=== PATIENT | female | born 1950 | race Caucasian/White ===

== ENCOUNTER 2017-01-06 11:23 | Outpatient (CLI) | payer MEDICARE ==
[2017-01-06 18:45] LABS: BASOPHILS % (AUTO) 0.6 %; EOSINOPHILS # (AUTO) 0.1 10^3/uL (0.0-0.7); EOSINOPHILS % (AUTO) 1.9 %; HCT - HEMATOCRIT 35.1 % (37.0-47.0); HGB - HEMOGLOBIN 11.2 g/dL (12.0-16.0); LYMPHOCYTES # (AUTO) 1.9 10^3/uL (1.5-3.5); LYMPHOCYTES % (AUTO) 37.3 %; MEAN CORPUSCULAR HEMOGLOBIN 23.4 pg (27.0-31.0); MEAN PLATELET VOLUME 7.5 fL (7.9-10.8); MONOCYTES # (AUTO) 0.4 10^3/uL (0.0-1.0); MONOCYTES % (AUTO) 7.3 %; NEUTROPHILS # (AUTO) 2.6 10^3/uL (1.5-6.6); NEUTROPHILS % (AUTO) 52.9 %; NUCLEATED RED BLOOD CELLS AUTO 0.1 /100WBC; RED BLOOD COUNT 4.81 10^6/uL (4.20-5.40); RED CELL DISTRIBUTION WIDTH 18.1 % (12.0-15.0)
[2017-01-06 19:21] LABS: ALBUMIN/GLOBULIN RATIO 1.3 (1.0-2.2); BILIRUBIN,TOTAL 0.5 mg/dL (0.2-1.0); BUN - BLOOD UREA NITROGEN 23 mg/dL (6-20); CALCIUM 9.1 mg/dL (8.5-10.3); CARBON DIOXIDE - CO2 26 mmol/L (21-32); CHLORIDE 105 mmol/L (101-111); CHOL/HDL RATIO 5.3 (<4.4); CHOLESTEROL 233 mg/dL; CREATININE 0.9 mg/dL (0.4-1.0); GFR - MDRD 63 (>89); GLUCOSE 91 mg/dL (70-100); HDL CHOLESTEROL 44 mg/dL; LDL/HDL RATIO 3.3 (<4.4); POTASSIUM 3.8 mmol/L (3.5-5.0); SODIUM 138 mmol/L (135-145); TOTAL PROTEIN 7.2 g/dL (6.7-8.2); TRIGLYCERIDES 219 mg/dL; VLDL CHOLESTEROL 44 mg/dL
== END 2017-01-06 11:24 | disposition home or self-care (01) ==
LOC: LAB.S 11:23
PROVIDERS: ATTEND Nurse Practitioner Family
DX: G35 Multiple sclerosis (principal); E78.5 Hyperlipidemia, unspecified
CPT/HCPCS: 36415; 80053; 80061; 84443; 85025

== ENCOUNTER 2017-03-24 15:35 | Outpatient (CLI) | payer MEDICARE ==
[2017-03-24 18:09] LABS: BASOPHILS % (AUTO) 0.8 %; EOSINOPHILS # (AUTO) 0.1 10^3/uL (0.0-0.7); HCT - HEMATOCRIT 35.9 % (37.0-47.0); HGB - HEMOGLOBIN 11.6 g/dL (12.0-16.0); LYMPHOCYTES % (AUTO) 40.2 %; MEAN CORPUSCULAR HEMOGLOBIN 23.8 pg (27.0-31.0); MEAN CORPUSCULAR HGB CONC 32.3 g/dL (32.0-36.0); MEAN CORPUSCULAR VOLUME 73.5 fL (81.0-99.0); MEAN PLATELET VOLUME 7.5 fL (7.9-10.8); MONOCYTES # (AUTO) 0.4 10^3/uL (0.0-1.0); NEUTROPHILS # (AUTO) 2.4 10^3/uL (1.5-6.6); RED BLOOD COUNT 4.89 10^6/uL (4.20-5.40); RED CELL DISTRIBUTION WIDTH 19.3 % (12.0-15.0); UNCORRECTED WHITE BLOOD COUNT 4.9 x10^3/uL; WHITE BLOOD COUNT 4.9 x10^3/uL (4.8-10.8)
[2017-03-24 18:49] LABS: IRON 28 ug/dL (28-170); TOTAL IRON BINDING CAPACITY 433 ug/dL (250-450); TRANSFERRIN 309 mg/dL (192-382)
== END 2017-03-24 15:36 | disposition home or self-care (01) ==
LOC: LAB.S 15:35
PROVIDERS: ATTEND Nurse Practitioner Family
DX: D64.9 Anemia, unspecified (principal)
CPT/HCPCS: 36415; 82607; 83540; 84466; 85025

== ENCOUNTER 2018-11-16 14:42 | Outpatient (CLI) | payer MEDICARE ==
[2018-11-16 17:11] LABS: BASOPHILS % (AUTO) 0.7 %; EOSINOPHILS # (AUTO) 0.1 10^3/uL (0.0-0.7); EOSINOPHILS % (AUTO) 1.4 %; HGB - HEMOGLOBIN 13.9 g/dL (12.0-16.0); LYMPHOCYTES # (AUTO) 2.1 10^3/uL (1.5-3.5); LYMPHOCYTES % (AUTO) 37.3 %; MEAN CORPUSCULAR HEMOGLOBIN 26.6 pg (27.0-31.0); MEAN CORPUSCULAR HGB CONC 32.3 g/dL (32.0-36.0); MEAN CORPUSCULAR VOLUME 82.3 fL (81.0-99.0); MEAN PLATELET VOLUME 7.6 fL (7.9-10.8); MONOCYTES # (AUTO) 0.4 10^3/uL (0.0-1.0); MONOCYTES % (AUTO) 6.4 %; NEUTROPHILS % (AUTO) 54.2 %; PLT - PLATELET COUNT 212 10^3/uL (130-450); RED BLOOD COUNT 5.21 10^6/uL (4.20-5.40); RED CELL DISTRIBUTION WIDTH 15.9 % (12.0-15.0); WHITE BLOOD COUNT 5.5 x10^3/uL (4.8-10.8)
[2018-11-16 17:50] LABS: CALCIUM 9.7 mg/dL (8.5-10.3); CREATININE 0.9 mg/dL (0.4-1.0)
== END 2018-11-16 14:43 | disposition home or self-care (01) ==
LOC: LAB.F 14:42
PROVIDERS: ATTEND Physician Assistant Medical
DX: D64.9 Anemia, unspecified (principal); Z79.899 Other long term (current) drug therapy
CPT/HCPCS: 36415; 80048; 82728; 83540; 84466; 85025

== ENCOUNTER 2020-01-14 10:57 | Outpatient (CLI) | payer MEDICARE ==
[2020-01-14 15:13] LABS: BASOPHILS # (AUTO) 0.1 10^3/uL (0.0-0.1); BASOPHILS % (AUTO) 1.3 %; EOSINOPHILS # (AUTO) 0.1 10^3/uL (0.0-0.7); EOSINOPHILS % (AUTO) 1.8 %; HGB - HEMOGLOBIN 13.7 g/dL (12.0-16.0); LYMPHOCYTES # (AUTO) 1.2 10^3/uL (1.5-3.5); LYMPHOCYTES % (AUTO) 32.1 %; MEAN CORPUSCULAR HEMOGLOBIN 27.2 pg (27.0-31.0); MEAN CORPUSCULAR HGB CONC 31.3 g/dL (32.0-36.0); MEAN CORPUSCULAR VOLUME 87.1 fL (81.0-99.0); MEAN PLATELET VOLUME 9.7 fL (7.9-10.8); MONOCYTES # (AUTO) 0.3 10^3/uL (0.0-1.0); NEUTROPHILS # (AUTO) 2.2 10^3/uL (1.5-6.6); NEUTROPHILS % (AUTO) 56.5 %; PLT - PLATELET COUNT 216 10^3/uL (130-450); RED BLOOD COUNT 5.03 10^6/uL (4.20-5.40); RED CELL DISTRIBUTION WIDTH 13.7 % (12.0-15.0); WHITE BLOOD COUNT 3.9 x10^3/uL (4.8-10.8)
[2020-01-14 16:18] LABS: ALBUMIN 4.2 g/dL (3.2-5.5); ALBUMIN/GLOBULIN RATIO 1.4 (1.0-2.2); ALKALINE PHOSPHATASE 58 IU/L (42-121); ALT ALANINE AMINOTRANSFERASE 16 IU/L (10-60); AST ASPARTATE AMINOTRANSFERASE 20 IU/L (10-42); BILIRUBIN,TOTAL 0.8 mg/dL (0.2-1.0); BUN - BLOOD UREA NITROGEN 21 mg/dL (6-20); CALCIUM 9.6 mg/dL (8.5-10.3); CARBON DIOXIDE - CO2 29 mmol/L (21-32); CHLORIDE 102 mmol/L (101-111); CHOL/HDL RATIO 4.3 (<4.4); CHOLESTEROL 244 mg/dL; CREATININE 0.9 mg/dL (0.4-1.0); GLUCOSE 104 mg/dL (70-100); HDL CHOLESTEROL 57 mg/dL; LDL CHOLESTEROL,CALCULATED 167 mg/dL; LDL/HDL RATIO 2.9 (<4.4); SODIUM 137 mmol/L (135-145); TOTAL PROTEIN 7.2 g/dL (6.7-8.2); VLDL CHOLESTEROL 20 mg/dL
== END 2020-01-14 10:58 | disposition home or self-care (01) ==
LOC: LAB.S 10:57
PROVIDERS: ATTEND Family Medicine
DX: R53.83 Other fatigue (principal); E78.5 Hyperlipidemia, unspecified; D64.9 Anemia, unspecified
CPT/HCPCS: 36415; 80053; 80061; 82607; 83721; 84443; 85025

== ENCOUNTER 2021-04-19 20:10 | Outpatient (CLI) | payer MEDICARE | END 2021-04-19 20:11 | disposition critical access hospital (66) | LOC: EMS 20:10 | DX: M54.6 Pain in thoracic spine (principal) | CPT/HCPCS: A0425; A0429 ==

== ENCOUNTER 2021-04-19 20:46 | Emergency (ER) | payer MEDICARE ==
[2021-04-19 20:54] VITALS: BP 152/72
[2021-04-19] MEDS ORDERED: IBUPROFEN 600 MG TABLET PO STA (22:04)
--- NOTE | 2021-04-19 22:16 | ED Physician Documentation ---
History of Present Illness - Stated complaint Stated Complaint: GLF, BACK PAIN - Chief complaint Chief Complaint: Back Pain - History obtained from History obtained from: Patient - Additonal information Additional information: Patient comes emergency department chief complaints of seeing blood on the pillow after taking a fall off of a ladder. Patient cannot really tell me exactly when she fell but was not today. She is also not sure how high up she was on the ladder. She states she was trying to hang a reason for her friend on the outside of the door. Patient states that she stumbled to the ground and did not distinctly remember hitting her head. Patient states that she has a history of multiple sclerosis and Sometimes has back pain, but states this is not bothering her right at the moment. Review of Systems Ten Systems: 10 systems reviewed and negative Constitutional: reports: Reviewed and negative Eyes: reports: Reviewed and negative Ears: reports: Reviewed and negative Nose: reports: Reviewed and negative Throat: reports: Reviewed and negative Cardiac: reports: Reviewed and negative Respiratory: reports: Reviewed and negative GI: reports: Reviewed and negative : reports: Reviewed and negative Skin: reports: Reviewed and negative Musculoskeletal: reports: Back pain Neurologic: reports: Reviewed and negative Psychiatric: reports: Reviewed and negative Endocrine: reports: Reviewed and negative Immunocompromised: reports: Reviewed and negative PD PAST MEDICAL HISTORY - Present Medications Home Medications: Ambulatory Orders Medication Instructions Recorded Confirmed Citalopram Hydrobromide [Celexa] 10 mg PO DAILY 03/17/14 03/17/14 - Allergies Allergies/Adverse Reactions: Allergies Allergy/AdvReac Type Severity Reaction Status Date / Time Penicillins Allergy Unknown Verified 04/19/21 20:51 Sulfa (Sulfonamide Allergy Unknown Verified 04/19/21 20:51 Antibiotics) - Social History Does the pt smoke?: No Smoking Status: Never smoker PD ED PE NORMAL - Vitals Vital signs reviewed: Yes - General General: Alert and oriented X 3, No acute distress, Well developed/nourished, Other (Disheveled female in no apparent distress) - HEENT HEENT: PERRL, EOMI, Moist mucous membranes, Other (Small left occipital scalp abrasion which appears subacute. No active bleeding. No laceration.) - Neck Neck: Supple, no meningeal sign - Cardiac Cardiac: RRR, No murmur, Strong equal pulses - Respiratory Respiratory: No respiratory distress, Clear bilaterally - Abdomen Abdomen: Soft, Non tender, Non distended - Back Back: No spinal TTP - Derm Derm: Normal color, Warm and dry, No rash - Extremities Extremities: No deformity, No tenderness to palpate, No edema - Neuro Neuro: Alert and oriented X 3, Other (Grossly intact) - Psych Psych: Normal mood, Normal affect Results - Vitals Vitals: Vital Signs - 24 hr 04/19/21 20:52 Temperature 35.8 C L Heart Rate 81 Respiratory 18 Rate Blood Pressure 152/72 H O2 Saturation 98 Oxygen O2 Source Room air PD MEDICAL DECISION MAKING - ED course Complexity details: reviewed results, re-evaluated patient, considered differential, d/w patient ED course: The patient had minimal back complaints at this point, and the pain that she did have was at baseline. She had a small abrasion on her scalp which was most likely the source of the Bloody residue she saw on her pillow. I have given the patient a dose of ibuprofen for her back discomfort here in the emergency department. We have discussed home management and the usual indications for return. Departure - Departure Disposition: 01 Home, Self Care Clinical Impression: Abrasion Back pain Qualifiers: Back pain location: low back pain Chronicity: chronic Back pain laterality: bilateral Sciatica presence: without sciatica Qualified Code(s): M54.50 - Low back pain, unspecified Condition: Stable Instructions: ED Abrasion, ED Neck Back Pain General Discharge Date/Time: 04/19/21 22:25
== END 2021-04-19 22:25 | disposition home or self-care (01) ==
LOC: EDUNIT# → ED 20:46
DX: S00.01XA Abrasion of scalp, initial encounter (principal); W11.XXXA Fall on and from ladder, initial encounter; Y93.89 Activity, other specified; Y92.008 Other place in unspecified non-institutional (private) residence as the place of occurrence of the external cause
CPT/HCPCS: 99282; 99283; A9270

== ENCOUNTER 2021-04-24 15:34 | Outpatient (CLI) | payer MEDICARE, MEDICAID | END 2021-04-24 15:35 | disposition critical access hospital (66) | LOC: EMS 15:34 | DX: Z04.3 Encounter for examination and observation following other accident (principal); R41.0 Disorientation, unspecified; R10.32 Left lower quadrant pain; M25.572 Pain in left ankle and joints of left foot | CPT/HCPCS: A0425; A0427 ==

== ENCOUNTER 2021-04-24 16:13 | Inpatient (IN) | payer MEDICARE, MEDICAID ==
[2021-04-24] MEDS ORDERED: SODIUM CHLORIDE 0.9% 1,000 ML IV STA ×2 (16:24→17:18)
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
[2021-04-24 16:45] LABS: BASOPHILS % (AUTO) 0.2 %; EOSINOPHILS % (AUTO) 0.1 %; HCT - HEMATOCRIT 38.1 % (37.0-47.0); HGB - HEMOGLOBIN 12.8 g/dL (12.0-16.0); LYMPHOCYTES # (AUTO) 0.7 10^3/uL (1.5-3.5); LYMPHOCYTES % (AUTO) 8.3 %; MEAN CORPUSCULAR HEMOGLOBIN 28.2 pg (27.0-31.0); MEAN CORPUSCULAR HGB CONC 33.6 g/dL (32.0-36.0); MEAN CORPUSCULAR VOLUME 83.9 fL (81.0-99.0); MEAN PLATELET VOLUME 9.1 fL (7.9-10.8); MONOCYTES # (AUTO) 0.8 10^3/uL (0.0-1.0); MONOCYTES % (AUTO) 8.8 %; NEUTROPHILS # (AUTO) 7.4 10^3/uL (1.5-6.6); NEUTROPHILS % (AUTO) 82.5 %; PLT - PLATELET COUNT 246 10^3/uL (130-450); RED BLOOD COUNT 4.54 10^6/uL (4.20-5.40); RED CELL DISTRIBUTION WIDTH 13.2 % (12.0-15.0)
--- NOTE | 2021-04-24 16:49 | XRAY Report ---
PROCEDURE: Chest 1 View X-Ray INDICATIONS: ams TECHNIQUE: One view of the chest was acquired. COMPARISON: None. FINDINGS: Surgical changes and devices: None. Lungs and pleura: No pleural effusions or pneumothorax. Lungs are clear. Suspected moderate size h iatal hernia. Mediastinum: Mediastinal contours appear normal. Heart size is normal. Bones and chest wall: No suspicious bony lesions. Overlying soft tissues appear unremarkable. IMPRESSION: Chest without acute cardiopulmonary abnormalities. No focal airspace disease. Reviewed by: Berhane Abraham MD on 04/24/2021 4:47 PM PST Approved by: Berhane Abraham MD on 04/24/2021 4:47 PM PST Station ID: [id number]
[2021-04-24 16:54] LABS: VBG BASE EXCESS 1.8 mmol/L (-2 - +2); VBG HCO3 27.1 mmol/L (23-28); VBG OXYGEN SATURATION 56.8 % (60-80); VBG PCO2 45.1 mmHg (41-51); VBG PH 7.397 (7.31-7.41); VBG PO2 29.3 mmHg (25-47); VBG TOTAL CO2 28.5 mmol/L (24-29)
--- NOTE | 2021-04-24 16:56 | CT Report ---
PROCEDURE: HEAD WO INDICATIONS: ams TECHNIQUE: Noncontrast 4.5 mm thick angled axial sections acquired from the foramen magnum to the vertex. For r adiation dose reduction, the following was used: automated exposure control, adjustment of mA and/or kV according to patient size. COMPARISON: 03/17/2014 FINDINGS: Image quality: Excellent. CSF spaces: Basal cisterns are patent. No extra-axial fluid collections. Mild diffuse cerebral vol ume loss. Moderate degree of patchy low density within the periventricular and subcortical white dariusz er. Ventricles are normal in size and shape. Brain: No midline shift. No intracranial masses or hemorrhage. Quiñonez-white matter interface is norm al. Skull and face: Calvarium and visualized facial bones are intact, without suspicious lesions. Sinuses: Visualized sinuses and mastoids are clear. IMPRESSION: Volume loss and small vessel ischemic disease. No acute intracranial abnormality. Reviewed by: Casie Negron MD on 04/24/2021 4:55 PM PST Approved by: Casie Negron MD on 04/24/2021 4:55 PM PST Station ID: [id number]
[2021-04-24 16:59] LABS: INR 1.3 (0.8-1.2); PT - PROTHROMBIN TIME 14.2 secs (9.9-12.6)
[2021-04-24 17:08] LABS: ACETAMINOPHEN < 10 ug/mL (10-30); ALBUMIN 4.2 g/dL (3.2-5.5); ALBUMIN/GLOBULIN RATIO 1.4 (1.0-2.2); ALKALINE PHOSPHATASE 54 IU/L (42-121); ALT ALANINE AMINOTRANSFERASE 68 IU/L (10-60); AST ASPARTATE AMINOTRANSFERASE 119 IU/L (10-42); BILIRUBIN,TOTAL 1.1 mg/dL (0.2-1.0); BUN - BLOOD UREA NITROGEN 48 mg/dL (6-20); CALCIUM 9.5 mg/dL (8.5-10.3); CARBON DIOXIDE - CO2 28 mmol/L (21-32); CHLORIDE 98 mmol/L (101-111); CREATININE 0.7 mg/dL (0.4-1.0); ETOH - ETHANOL < 5.0 mg/dL; GFR - MDRD 83 (>89); GLUCOSE 121 mg/dL (70-100); PHOSPHORUS 2.4 mg/dL (2.5-4.6); POTASSIUM 2.8 mmol/L (3.5-5.0); SALICYLATE < 6.0 mg/dL; SODIUM 137 mmol/L (135-145); TOTAL PROTEIN 7.1 g/dL (6.7-8.2)
[2021-04-24 17:09] LABS: MUDS CUTOFF CONCENTRATIONS CUTOFF CONC BELOW:
[2021-04-24 17:10] LABS: CK- CREATINE KINASE 3057 IU/L (22-269)
[2021-04-24 17:11] LABS: BILIRUBIN,URINE NEGATIVE (NEGATIVE); GLUCOSE, URINE (UA) NEGATIVE (NEGATIVE); KETONES,URINE (UA) 15 mg/dL (NEGATIVE); LEUKOCYTE ESTERASE, URINE NEGATIVE (NEGATIVE); NITRITE,URINE POSITIVE (NEGATIVE); OCCULT BLOOD,URINE MODERATE (NEGATIVE); PROTEIN,URINE 30 mg/dL (NEGATIVE); UROBILINOGEN,URINE 0.2 (NORMAL) E.U./dL (NORMAL)
[2021-04-24 17:12] LABS: CLARITY,URINE HAZY (CLEAR)
[2021-04-24] MEDS ORDERED: POTASSIUM CHLORIDE 20 MEQ TABLET PO STA (17:17)
[2021-04-24] MEDS ORDERED: cefTRIAXone 1 GM in SODIUM CHLORIDE 0.9% MINIBAG 100 ML IV STA (17:17)
[2021-04-24 17:23] LABS: BACTERIA,URINE Many /HPF (None Seen); RBC,URINE 0-5 /HPF (0-5); SQUAMOUS EPITHELIAL CELL,UR NONE SEEN (<= Few)
[2021-04-24 17:24] LABS: AMPHETAMINE SCREEN,URINE NEGATIVE (NEGATIVE); BARBITURATE SCREEN,UR NEGATIVE (NEGATIVE); BENZODIAZEPINES SCREEN, URINE NEGATIVE (NEGATIVE); COCAINE SCREEN URINE NEGATIVE (NEGATIVE); METHADONE SCREEN, URINE NEGATIVE (NEGATIVE); METHAMPHETAMINES SCREEN, URINE NEGATIVE (NEGATIVE); OPIATE SCREEN, URINE NEGATIVE (NEGATIVE); OXYCODONE SCREEN, URINE NEGATIVE (NEGATIVE); PROPOXYPHENE SCREEN, URINE NEGATIVE (NEGATIVE); THC CANNABINOID SCREEN, URINE NEGATIVE (NEGATIVE); TRICYCLIC ANTIDEPRESSANT,URINE NEGATIVE (NEGATIVE)
[2021-04-24] MEDS ORDERED: ONDANSETRON 4 MG/2 ML VIAL IVP PRN (17:29)
[2021-04-24] MEDS ORDERED: SODIUM CHLORIDE FLUSH 0.9% 10 ML SYRINGE IVP PRN (17:29)
--- NOTE | 2021-04-24 17:47 | HISTORY & PHYSICAL EXAMINATION ---
Chief Complaint - Chief Complaint Chief Complaint: pt is confused History of Present Illness - Admitted From Admitted From:: medical floor - History Obtained From Records Reviewed: [facility], ER notes History obtained from: [facility], ER notes Exam Limitations: pt's confused - History of Present Illness HPI Comment/Other: This is a 71-year-old woman with A medical history Significant of multiple sclerosis and multiple doreen in the past who present ER for evaluation of her fall and altered mental status. pt was seen for a fall from ladder at here 5 days ago. Pt is alert and confused. She attempted to open her eyes and follow the command, but she did not answer any questions. pt was confused at ER per ER's report as well. Pt also was found on the ground by APS today. Her last seen at normal was 2 days ago. Pt is living alone. It was unclear how and why she was on the ground. CT of head and CXR reveals unremarkable for acute finding. Routine laboratory tests show patient had Potassium 2.8, BUN 48, AST 119, ALT 68, Alcohol less 5, CK 3057. Urinalysis show many bacteria, positive nitrate and indication of dehydration. Given above medical conditions, medical team was consulted for admission. At this moment, patient is confused, we will have full code for patient and will adjust as patient can request differently History - Past Medical History Neuro: reports: Multiple sclerosis - Family & Social History Family History Comment/Other: Patient is confused, she cannot provide family medical history At this moment Living Situation: Alone Meds/Allgy - Home Medications Home Medications: Ambulatory Orders Medication Instructions Recorded Confirmed Citalopram Hydrobromide [Celexa] 10 mg PO DAILY 03/17/14 03/17/14 - Allergies Allergies/Adverse Reactions: Allergies Allergy/AdvReac Type Severity Reaction Status Date / Time Penicillins Allergy Unknown Verified 04/24/21 16:30 Sulfa (Sulfonamide Allergy Unknown Verified 04/24/21 16:30 Antibiotics) Review of Systems - All Other Systems All Other Systems: reports: Other (Patient is confused, she cannot provide ROS at this moment.) Exam - Vital Signs Vital Signs: Vital Signs x48h Temp Pulse Resp BP Pulse Ox 04/24/21 16:30 36.4 C L 112 H 18 148/104 H 97 - Physical Exam General Appearance: positive: No acute distress, Alert Eyes Bilateral: positive: Normal inspection, No lid inflammation ENT: positive: ENT inspection nml. negative: Purulent nasal drainage Neck: positive: Nml inspection, Trachea midline. negative: Tracheal deviation Respiratory: positive: Chest non-tender, No respiratory distress. negative: Wheezes, Rales Cardiovascular: positive: Regular rate & rhythm. negative: Tachycardia, Bradycardia, Systolic murmur Peripheral Pulses: positive: 2+ Abdomen: positive: Non-tender, Nml bowel sounds, No distention Back: positive: Nml inspection Skin: positive: Color nml, Warm, Dry Extremities: positive: Non-tender, No pedal edema Neurologic/Psychiatric: negative: Sensory loss, Facial droop, Slurred/abnml speech Conclusion/Plan - Problem List (1) Altered mental status Conclusion/Plan: pt is confused at ER. ER provider Spoke with Ms Lam whose contact was on chart, and reported her mental status has some baseline confusion, but today it is not her normal. CT of head reveal no acute process. pt has UTI infection, and dehydration significantly as well, it is likely the cause for her acute confusion, delirium. neuro check Q4H, treat underline of UTI with antibiotics and IVF, Continue laboratory and vital signs monitor (2) UTI (urinary tract infection) Conclusion/Plan: Urinalysis Show many bacteria in urine and positive nitrate, ketones with protein, elevated gravity in urine. We will treat her with antibiotics Rocephin, Intravenous IV fluids, Follow-up with urine culture and blood culture (3) Rhabdomyolysis Conclusion/Plan: Patient had unwitnessed fall at ground, unknown how long time she has been the ground, but it seem she had no injury. CK is over 3000, and increased BUN 48, but with normal arrange creatinine. ER already started with IVF, we will continue IVF, continue lab monitor and check CK daily as well. (4) Dehydration Conclusion/Plan: pt is confused and live alone, elevated BUN and urine gravity, indicated pt had significant dehydration. IVF, lab monitor and vital monitor. consult with social work specialist for disposition planning. It is likely pt need nurse facility to help her, pt can not take care of her self. (5) Hypokalemia Conclusion/Plan: potassium is 2.8, replaced with potassium, lab monitor, add tele monitor as well. (6) Fall Conclusion/Plan: Patient has a history of multiple falls, she live alone. social work consult for pt, PT/OT evaluation and treatment for patient, nurse for fall precaution. (7) Multiple sclerosis Conclusion/Plan: Patient has a history of multiple sclerosis, chronic. pt has no acute res piratory distress. she had 97% O2 sat on room air. pt may followup with neurologist as out-pt - Lab Results Fish Bones: 04/25/21 06:45 04/25/21 06:45 Core Measures - Anticipated LOS I expect patient to be DC'd or transferred within 96 hours.: Yes - DVT/VTE - Prophylaxis VTE/DVT Device ordered at admit?: Yes VTE/DVT Prophylaxis med ordered at admit?: Yes - Stroke - Rehab Assessment Rehab services assessment to be ordered?: Yes - AMI - Statin at Admit Aspirin Prescribed on Admit: Yes
[2021-04-24 17:49] LABS: B. PARAPERTUSSIS- RESP PCR PAN NOT DETECTED; B. PERTUSSIS- RESP PCR PANEL NOT DETECTED; C. PNEUMONIAE- RESP PCR PANEL NOT DETECTED; CORONAVIRUS 229E-RESP PCR NOT DETECTED; CORONAVIRUS HKU1-RESP PCR NOT DETECTED; CORONAVIRUS NL63-RESP PCR NOT DETECTED; CORONAVIRUS OC43-RESP PCR NOT DETECTED; HUMAN METAPNEUMOVIRUS NOT DETECTED; INFLUENZA A- RESP PCR PANEL NOT DETECTED; INFLUENZA B - RESP PCR PANEL NOT DETECTED; M. PNEUMONIAE- RESP PCR PANEL NOT DETECTED; PARAINFLUENZA VIRUS 1 NOT DETECTED; PARAINFLUENZA VIRUS 2 NOT DETECTED; PARAINFLUENZA VIRUS 3 NOT DETECTED; PARAINFLUENZA VIRUS 4 NOT DETECTED; RHINOVIRUS/ENTEROVIRUS NOT DETECTED; RSV- RESP PCR PANEL NOT DETECTED; SARS-CoV-2 -RESP PCR PANEL NOT DETECTED
[2021-04-24] MEDS ORDERED: POTASSIUM CHLORIDE 20 MEQ TABLET PO ONE (19:00)
[2021-04-24] MEDS: NEUTRA-PHOS 250 MG TABLET PO SCH (19:57)
[2021-04-24] MEDS: SODIUM CHLORIDE 0.9% 1,000 ML IV SCH ×2 (20:01→23:52)
[2021-04-25] MEDS: SODIUM CHLORIDE FLUSH 0.9% 10 ML SYRINGE IVP SCH ×4 (03:02→23:25)
[2021-04-25] MEDS: SODIUM CHLORIDE 0.9% 1,000 ML IV SCH ×3 (06:43→19:29)
[2021-04-25 06:53] LABS: BASOPHILS % (AUTO) 0.7 %; EOSINOPHILS % (AUTO) 0.4 %; HCT - HEMATOCRIT 34.6 % (37.0-47.0); HGB - HEMOGLOBIN 11.3 g/dL (12.0-16.0); LYMPHOCYTES # (AUTO) 1.4 10^3/uL (1.5-3.5); LYMPHOCYTES % (AUTO) 24.9 %; MEAN CORPUSCULAR HGB CONC 32.7 g/dL (32.0-36.0); MEAN CORPUSCULAR VOLUME 85.6 fL (81.0-99.0); MONOCYTES # (AUTO) 0.6 10^3/uL (0.0-1.0); MONOCYTES % (AUTO) 10.5 %; NEUTROPHILS # (AUTO) 3.6 10^3/uL (1.5-6.6); NEUTROPHILS % (AUTO) 63.3 %; PLT - PLATELET COUNT 199 10^3/uL (130-450); RED BLOOD COUNT 4.04 10^6/uL (4.20-5.40); RED CELL DISTRIBUTION WIDTH 13.6 % (12.0-15.0); WHITE BLOOD COUNT 5.7 x10^3/uL (4.8-10.8)
[2021-04-25 07:20] LABS: ALBUMIN 3.2 g/dL (3.2-5.5); ALBUMIN/GLOBULIN RATIO 1.3 (1.0-2.2); BILIRUBIN,TOTAL 1.2 mg/dL (0.2-1.0); CALCIUM 8.5 mg/dL (8.5-10.3); CREATININE 0.5 mg/dL (0.4-1.0); PHOSPHORUS 1.6 mg/dL (2.5-4.6); POTASSIUM 3.3 mmol/L (3.5-5.0); TOTAL PROTEIN 5.7 g/dL (6.7-8.2)
[2021-04-25] MEDS ORDERED: POTASSIUM CHLORIDE 20 MEQ TABLET PO ONE (07:43)
[2021-04-25] MEDS: NEUTRA-PHOS 250 MG TABLET PO SCH ×3 (08:01→16:51)
[2021-04-25] MEDS: cefTRIAXone 1 GM in SODIUM CHLORIDE 0.9% MINIBAG 100 ML IV SCH (08:11)
[2021-04-25] MEDS: ENOXAPARIN 40 MG/0.4 ML SYRINGE SUBQ SCH (08:12)
[2021-04-25] MEDS ORDERED: POTASSIUM PHOSPHATE 15 MMOL in SODIUM CHLORIDE 0.9% 250 ML IV ONE (08:30)
--- NOTE | 2021-04-25 09:17 | PHARMACY PROGRESS NOTE ---
- Best Possible Medication History Admit Date and Time: 04/24/21 1729 Processed by: Pharmacy Secondary Source(s): Physician records As the person ultimately responsible for medication therapy, providers are able to order a medication from an existing home medication list in [facility] via the "Reconcile Routine" prior to Confirmation of that medication by software support specialist. Such practice is discouraged except when the physician, in their clinical judgment, deems that a medical need exists for a medication without regard to previous use.
[2021-04-25] MEDS: polyethylene glycoL 3350 17 GM PACKET PO SCH (12:07)
[2021-04-25] MEDS ORDERED: ZINC OXIDE 20% OINT 30 GM TUBE TOP PRN (16:53)
--- NOTE | 2021-04-25 18:27 | PROVIDER PROGRESS NOTE ---
Assessment/Plan - Problem List (1) Altered mental status Assessment/Plan: 04/25 improved. continue treated underline dehydration and infection pt is confused at ER. ER provider Spoke with Ms Lam whose contact was on chart, and reported her mental status has some baseline confusion, but today it is not her normal. CT of head reveal no acute process. pt has UTI infection, and dehydration significantly as well, it is likely the cause for her acute confusion, delirium. neuro check Q4H, treat underline of UTI with antibiotics and IVF, Continue laboratory and vital signs monitor (2) UTI (urinary tract infection) Conclusion/Plan: Urinalysis Show many bacteria in urine and positive nitrate, ketones with protein, elevated gravity in urine. We will treat her with antibiotics Rocephin, Intravenous IV fluids, Follow-up with urine culture and blood culture (3) Rhabdomyolysis Conclusion/Plan: 04/25 improved. CK is down to 1700 from over 3000, continue IVF and lab monitor Patient had unwitnessed fall at ground, unknown how long time she has been the ground, but it seem she had no injury. CK is over 3000, and increased BUN 48, but with normal arrange creatinine. ER already started with IVF, we will continue IVF, continue lab monitor and check CK daily as well. (4) Dehydration Conclusion/Plan: 04/25 improved. BUN is down to 31 from 48, continue IVF, and lab and vital monitor pt is confused and live alone, elevated BUN and urine gravity, indicated pt had significant dehydration. IVF, lab monitor and vital monitor. consult with licensed master social worker for disposition planning. It is likely pt need nurse facility to help her, pt can not take care of her self. (5) Hypokalemia Conclusion/Plan: 04/25 K is 3.3, continue replaced, lab monitor potassium is 2.8, replaced with potassium, lab monitor, add tele monitor as well. (6) Fall Conclusion/Plan: 04/25 PT/OT evaluation and treatment for pt, recommend to SNF, consult with licensed master social worker for d/c planning Patient has a history of multiple falls, she live alone. social work consult for pt, PT/OT evaluation and treatment for patient, nurse for fall precaution. (7) Multiple sclerosis Conclusion/Plan: Patient has a history of multiple sclerosis, chronic. pt has no acute respiratory distress. she had 97% O2 sat on room air. pt may followup with neurologist as out-pt - Current Meds Current Meds: Current Medications Generic Name Dose Route Start Last Admin Trade Name Freq PRN Reason Stop Dose Admin Enoxaparin Sodium 40 mg 04/25/21 09:00 04/25/21 08:12 Enoxaparin 40 Mg/0.4 Ml Syringe SUBQ 40 mg DAILY DONNA Administration Sodium Chloride 1,000 mls @ 150 mls/hr 04/24/21 18:00 04/25/21 14:39 Normal Saline 0.9% IV 150 mls/hr .Q6H40M DONNA Administration Ceftriaxone Sodium 1 gm/ 100 mls @ 200 mls/hr 04/25/21 09:00 04/25/21 09:30 Sodium Chloride IV Infused DAILY DONNA Infusion Polyethylene Glycol 17 gm 04/25/21 10:00 04/25/21 12:07 Polyethylene Glycol 3350 17 Gm Packet PO 17 gm DAILY DONNA Administration Sodium Chloride 10 ml 04/25/21 01:00 04/25/21 16:50 Sodium Chloride Flush 0.9% 10 Ml Syringe IVP Not Given 0100,0900,1700 DONNA Sodium Phosphate 250 mg 04/24/21 19:00 04/25/21 16:51 Neutra-Phos 250 Mg Tablet PO 250 mg TIDWM DONNA Administration - Lab Result Fish Bone Diagrams: 04/25/21 06:45 04/25/21 06:45 - Additional Planning My Orders: My Active Orders 04/24/21 17:29 Activity Orders [RC] Q2HR IO [RC] IOSHIFT Initiate Bowel Care Protocol [RC] .protocol Initiate Flu Vaccine Screening [RC] ONCE Initiate Line Care Protocol [RC] QSHIFT Initiate Personal Care Protoco [RC] .protocol Initiate Pneumonia Vaccine Scr [RC] ONCE Vital Signs [RC] Q4HR Acetaminophen [Tylenol] 650 mg PO Q4HR PRN Ondansetron Inj [Zofran Inj] 4 mg IVP Q6HR PRN Sodium Chloride Flush 0.9% [Normal Saline Flush 0.9%] 10 ml IVP PRN PRN Code Status [OTHERS] Routine Condition of Patient [OTHERS] Routine DVT Prophylaxis [OTHERS] Routine 04/24/21 17:34 IV Insert [RC] .ONCE 04/24/21 17:35 SCDs [RC] QSHIFT 04/24/21 17:36 Evaluate and Treat OT [OT] Routine Evaluate and Treat PT [PT] Routine 04/24/21 17:41 Telemetry- [RC] Q4HR 04/24/21 18:00 Sodium Chloride 0.9% [Normal Saline 0.9%] 1,000 ml IV 150 mls/hr 04/24/21 18:18 Neuro Check [RC] Q4H 04/24/21 19:00 Neutra-Phos [K-Phos Neutral] 250 mg PO TIDWM 04/25/21 01:00 Sodium Chloride Flush 0.9% [Normal Saline Flush 0.9%] 10 ml IVP 0100,0900,1700 04/25/21 09:00 Enoxaparin [Lovenox] 40 mg SUBQ DAILY cefTRIAXone [Rocephin] 1 gm Sodium Chloride 0.9% Minibag [Normal Saline 0.9% Minibag] 100 ml IV DAILY 04/25/21 10:00 polyethylene glycoL 3350 [Miralax] 17 gm PO DAILY 04/25/21 16:53 Zinc Oxide 20% Oint [Zinc Oxide] 1 applic TOP PRN PRN 04/26/21 05:00 CBC - COMP BLD CT W/AUTO DIFF [HEME] DAILYLAB CK- CREATINE KINASE [CHEM] DAILYLAB CMP [COMPREHENSIVE METABOLIC PANEL] [CHEM] DAILYLAB PHOSPHORUS [CHEM] DAILYLAB 04/27/21 05:00 CBC - COMP BLD CT W/AUTO DIFF [HEME] DAILYLAB CK- CREATINE KINASE [CHEM] DAILYLAB CMP [COMPREHENSIVE METABOLIC PANEL] [CHEM] DAILYLAB PHOSPHORUS [CHEM] DAILYLAB 04/28/21 05:00 CBC - COMP BLD CT W/AUTO DIFF [HEME] DAILYLAB CK- CREATINE KINASE [CHEM] DAILYLAB CMP [COMPREHENSIVE METABOLIC PANEL] [CHEM] DAILYLAB 04/29/21 05:00 CBC - COMP BLD CT W/AUTO DIFF [HEME] DAILYLAB CK- CREATINE KINASE [CHEM] DAILYLAB CMP [COMPREHENSIVE METABOLIC PANEL] [CHEM] DAILYLAB 04/30/21 05:00 CBC - COMP BLD CT W/AUTO DIFF [HEME] DAILYLAB CK- CREATINE KINASE [CHEM] DAILYLAB CMP [COMPREHENSIVE METABOLIC PANEL] [CHEM] DAILYLAB Subjective - Subjective Patient Reports: Resting Comfortably Objective Vital Signs: Vital Signs - 24 hr 04/24/21 04/24/2104/24/21 18:32 19:14 19:51 Temperature 36.4 C L Heart Rate 77 105 H Heart Rate [ Activity] Heart Rate [ 88 Brachial] Heart Rate [ Supine] Respiratory 14 16 22 Rate Blood Pressure 100/66 133/82 H Blood Pressure [Activity] Blood Pressure 99/87 H [Right Brachial artery] Blood Pressure [Supine] O2 Saturation 99 100 100 04/24/21 04/24/21 04/25/21 21:00 23:57 03:54 Temperature 36.5 C 36.5 C 36.7 C Heart Rate Heart Rate [ Activity] Heart Rate [ 90 91 96 Brachial] Heart Rate [ Supine] Respiratory 16 18 16 Rate Blood Pressure Blood Pressure [Activity] Blood Pressure 116/51 L 123/52 L 127/65 [Right Brachial artery] Blood Pressure [Supine] O2 Saturation 97 98 96 04/25/21 04/25/21 04/25/21 07:48 11:00 13:00 Temperature 36.6 C 36.4 C L Heart Rate Heart Rate [ 108 H Activity] Heart Rate [ 89 102 H Brachial] Heart Rate [ 95 Supine] Respiratory 18 19 Rate Blood Pressure Blood Pressure 140/88 H [Activity] Blood Pressure 130/59 L 136/63 H [Right Brachial artery] Blood Pressure 120/71 [Supine] O2 Saturation 96 99 04/25/21 15:39 Temperature 36.6 C Heart Rate Heart Rate [ Activity] Heart Rate [ 103 H Brachial] Heart Rate [ Supine] Respiratory 16 Rate Blood Pressure Blood Pressure [Activity] Blood Pressure 129/68 [Right Brachial artery] Blood Pressure [Supine] O2 Saturation 98 Oxygen O2 Source Room air I&O (Last 24 Hrs): Intake and Output Totals x24h 04/23/21 04/24/21 04/25/21 23:59 23:59 23:59 Intake Total 2074 3098 Output Total 375 Balance 7 3723 General: Alert, Cooperative, No acute distress HEENT: Atraumatic Neck: Supple Neuro: Alert, Non Focal Cardiovascular: Regular rate, Normal S1, Normal S2 Respiratory: Chest non-tender, No respiratory distress Abdomen: Normal bowel sounds, Soft Extremities: Normal pulses - Results Results: Laboratory Results WBC 5.7 x10^3/uL (4.8-10.8) 04/25/21 06:45 RBC 4.04 10^6/uL (4.20-5.40) L 04/25/21 06:45 Hgb 11.3 g/dL (12.0-16.0) L 04/25/21 06:45 Hct 34.6 % (37.0-47.0) L 04/25/21 06:45 MCV 85.6 fL (81.0-99.0) 04/25/21 06:45 MCH 28.0 pg (27.0-31.0) 04/25/21 06:45 MCHC 32.7 g/dL (32.0-36.0) 04/25/21 06:45 RDW 13.6 % (12.0-15.0) 04/25/21 06:45 Plt Count 199 10^3/uL (130-450) 04/25/21 06:45 MPV 9.0 fL (7.9-10.8) 04/25/21 06:45 Neut # (Auto) 3.6 10^3/uL (1.5-6.6) 04/25/21 06:45 Lymph # (Auto) 1.4 10^3/uL (1.5-3.5) L 04/25/21 06:45 [place] # (Auto) 0.6 10^3/uL (0.0-1.0) 04/25/21 06:45 Eos # (Auto) 0.0 10^3/uL (0.0-0.7) 04/25/21 06:45 Baso # (Auto) 0.0 10^3/uL (0.0-0.1) 04/25/21 06:45 Absolute Nucleated RBC 0.00 x10^3/uL 04/25/21 06:45 Nucleated RBC % 0.0 /100WBC 04/25/21 06:45 PT 14.2 secs (9.9-12.6) H 04/24/21 16:35 INR 1.3 (0.8-1.2) H 04/24/21 16:35 VBG pH 7.397 (7.31-7.41) 04/24/21 16:35 VBG pCO2 45.1 mmHg (41-51) 04/24/21 16:35 VBG pO2 29.3 mmHg (25-47) 04/24/21 16:35 VBG HCO3 27.1 mmol/L (23-28) 04/24/21 16:35 VBG Total CO2 28.5 mmol/L (24-29) 04/24/21 16:35 VBG O2 Saturation 56.8 % (60-80) L 04/24/21 16:35 VBG Base Excess 1.8 mmol/L (-2 - +2) 04/24/21 16:35 Sodium 140 mmol/L (135-145) 04/25/21 06:45 Potassium 3.3 mmol/L (3.5-5.0) L 04/25/21 06:45 Chloride 107 mmol/L (101-111) 04/25/21 06:45 Carbon Dioxide 24 mmol/L (21-32) 04/25/21 06:45 Anion Gap 9.0 (6-13) 04/25/21 06:45 BUN 31 mg/dL (6-20) H 04/25/21 06:45 Creatinine 0.5 mg/dL (0.4-1.0) 04/25/21 06:45 Estimated GFR (MDRD) 122 (>89) 04/25/21 06:45 Glucose 93 mg/dL (70-100) 04/25/21 06:45 Lactic Acid 2.0 mmol/L (0.5-2.2) 04/24/21 16:35 Calcium 8.5 mg/dL (8.5-10.3) 04/25/21 06:45 Phosphorus 1.6 mg/dL (2.5-4.6) L 04/25/21 06:45 Magnesium 2.0 mg/dL (1.7-2.8) 04/24/21 16:35 Total Bilirubin 1.2 mg/dL (0.2-1.0) H 04/25/21 06:45 AST 82 IU/L (10-42) H 04/25/21 06:45 ALT 50 IU/L (10-60) 04/25/21 06:45 Alkaline Phosphatase 44 IU/L (42-121) 04/25/21 06:45 Total Creatine Kinase 1765 IU/L (22-269) H* 04/25/21 06:45 Total Protein 5.7 g/dL (6.7-8.2) L 04/25/21 06:45 Albumin 3.2 g/dL (3.2-5.5) 04/25/21 06:45 Globulin 2.5 g/dL (2.1-4.2) 04/25/21 06:45 Albumin/Globulin Ratio 1.3 (1.0-2.2) 04/25/21 06:45 TSH 1.13 uIU/mL (0.34-5.60) 04/24/21 16:35 Urine Color DARK YELLOW 04/24/21 17:03 Urine Clarity HAZY (CLEAR) 04/24/21 17:03 Urine pH 6.0 PH (5.0-7.5) 04/24/21 17:03 Ur Specific [place] >=1.030 (1.002-1.030) H 04/24/21 17:03 Urine Protein 30 mg/dL (NEGATIVE) H 04/24/21 17:03 Urine Glucose (UA) NEGATIVE mg/dL (NEGATIVE) 04/24/21 17:03 Urine Ketones 15 mg/dL (NEGATIVE) H 04/24/21 17:03 Urine Occult Blood MODERATE (NEGATIVE) H 04/24/21 17:03 Urine Nitrite POSITIVE (NEGATIVE) H 04/24/21 17:03 Urine Bilirubin NEGATIVE (NEGATIVE) 04/24/21 17:03 Urine Urobilinogen 0.2 (NORMAL) E.U./dL (NORMAL) 04/24/21 17:03 Ur Leukocyte Esterase NEGATIVE (NEGATIVE) 04/24/21 17:03 Urine RBC 0-5 /HPF (0-5) 04/24/21 17:03 Urine WBC 4-5 /HPF (0-5) 04/24/21 17:03 Ur Squamous Epith Cells NONE SEEN (<= Few) 04/24/21 17:03 Urine Bacteria Many /HPF (None Seen) H 04/24/21 17:03 Ur Microscopic Review INDICATED 04/24/21 17:03 Urine Culture Comments INDICATED 04/24/21 17:03 Nasal Adenovirus (PCR) NOT DETECTED 04/24/21 16:40 Nasal B. parapertussis DNA (PCR) NOT DETECTED 04/24/21 16:40 Nasal Coronavir 229E PCR NOT DETECTED 04/24/21 16:40 Nasal Coronavir HKU1 PCR NOT DETECTED 04/24/21 16:40 Nasal Coronavir NL63 PCR NOT DETECTED 04/24/21 16:40 Nasal Coronavir OC43 PCR NOT DETECTED 04/24/21 16:40 Nasal Enterovir/Rhinovir PCR NOT DETECTED 04/24/21 16:40 Nasal Influenza B PCR NOT DETECTED 04/24/21 16:40 Nasal Influenza A PCR NOT DETECTED 04/24/21 16:40 Nasal Parainfluen 1 PCR NOT DETECTED 04/24/21 16:40 Nasal Parainfluen 2 PCR NOT DETECTED 04/24/21 16:40 Nasal Parainfluen 3 PCR NOT DETECTED 04/24/21 16:40 Nasal Parainfluen 4 PCR NOT DETECTED 04/24/21 16:40 Nasal RSV (PCR) NOT DETECTED 04/24/21 16:40 Nasal B.pertussis DNA PCR NOT DETECTED 04/24/21 16:40 Nasal C.pneumoniae (PCR) NOT DETECTED 04/24/21 16:40 [place] Human Metapneumo PCR NOT DETECTED 04/24/21 16:40 Nasal M.pneumoniae (PCR) NOT DETECTED 04/24/21 16:40 Nasal SARS-CoV-2 (PCR) NOT DETECTED 04/24/21 16:40 Salicylates < 6.0 mg/dL 04/24/21 16:35 Urine Opiates Screen NEGATIVE (NEGATIVE) 04/24/21 17:03 Ur Oxycodone Screen NEGATIVE (NEGATIVE) 04/24/21 17:03 Urine Methadone Screen NEGATIVE (NEGATIVE) 04/24/21 17:03 Ur Propoxyphene Screen NEGATIVE (NEGATIVE) 04/24/21 17:03 Acetaminophen < 10 ug/mL (10-30) L 04/24/21 16:35 Ur Barbiturates Screen NEGATIVE (NEGATIVE) 04/24/21 17:03 Ur Tricyclics Screen NEGATIVE (NEGATIVE) 04/24/21 17:03 Ur Phencyclidine Scrn NEGATIVE (NEGATIVE) 04/24/21 17:03 Ur Amphetamine Screen NEGATIVE (NEGATIVE) 04/24/21 17:03 U Methamphetamines Scrn NEGATIVE (NEGATIVE) 04/24/21 17:03 U Benzodiazepines Scrn NEGATIVE (NEGATIVE) 04/24/21 17:03 Urine Cocaine Screen NEGATIVE (NEGATIVE) 04/24/21 17:03 U Cannabinoids Screen NEGATIVE (NEGATIVE) 04/24/21 17:03 Ethyl Alcohol < 5.0 mg/dL 04/24/21 16:35 ABX Reporting Has patient been on IV antibiotics over the past 48 hours?: Yes Current Medications - Current Medications Current Medications: Active Medications Acetaminophen (Acetaminophen 325 Mg Tablet) 650 mg PO Q4HR PRN PRN Reason: Pain 1 to 4 Enoxaparin Sodium (Enoxaparin 40 Mg/0.4 Ml Syringe) 40 mg SUBQ DAILY [facility] Last Admin: 04/25/21 08:12 Dose: 40 mg Documented by: Ceftriaxone Sodium 1 gm/ (Sodium Chloride) 100 mls @ 200 mls/hr IV DAILY [facility] Last Infusion: 04/25/21 09:30 Dose: Infused Documented by: Sodium Chloride (Normal Saline 0.9%) 1,000 mls @ 125 mls/hr IV .Q8H [facility] Multi-Ingredient Ointment (Zinc Oxide 20% Oint 30 Gm Tube) 1 applic TOP PRN PRN PRN Reason: Skin Care Ondansetron HCl (Ondansetron 4 Mg/2 Ml Vial) 4 mg IVP Q6HR PRN PRN Reason: Nausea / Vomiting Polyethylene Glycol (Polyethylene Glycol 3350 17 Gm Packet) 17 gm PO DAILY [facility] Last Admin: 04/25/21 12:07 Dose: 17 gm Documented by: Sodium Chloride (Sodium Chloride Flush 0.9% 10 Ml Syringe) 10 ml IVP PRN PRN PRN Reason: NEEDED PER PROVIDER ORDERS Sodium Chloride (Sodium Chloride Flush 0.9% 10 Ml Syringe) 10 ml IVP 0100,0900,1700 [facility] Last Admin: 04/25/21 16:50 Dose: Not Given Documented by: Sodium Phosphate (Neutra-Phos 250 Mg Tablet) 250 mg PO TIDWM [facility] Last Admin: 04/25/21 16:51 Dose: 250 mg Documented by: Cholecalciferol (Vitamin D3) [Vitamin D3] 50 mcg PO DAILY 04/25/21 Citalopram Hydrobromide [Citalopram HBr] 40 mg PO DAILY 04/25/21
[2021-04-26] MEDS: SODIUM CHLORIDE 0.9% 1,000 ML IV SCH ×3 (04:22→13:48)
[2021-04-26 06:37] LABS: BASOPHILS % (AUTO) 0.4 %; EOSINOPHILS # (AUTO) 0.1 10^3/uL (0.0-0.7); EOSINOPHILS % (AUTO) 1.3 %; HCT - HEMATOCRIT 32.1 % (37.0-47.0); HGB - HEMOGLOBIN 10.6 g/dL (12.0-16.0); LYMPHOCYTES # (AUTO) 1.8 10^3/uL (1.5-3.5); LYMPHOCYTES % (AUTO) 37.6 %; MEAN CORPUSCULAR HEMOGLOBIN 28.6 pg (27.0-31.0); MEAN CORPUSCULAR VOLUME 86.8 fL (81.0-99.0); MEAN PLATELET VOLUME 9.3 fL (7.9-10.8); MONOCYTES # (AUTO) 0.5 10^3/uL (0.0-1.0); MONOCYTES % (AUTO) 10.1 %; NEUTROPHILS # (AUTO) 2.4 10^3/uL (1.5-6.6); NEUTROPHILS % (AUTO) 50.4 %; PLT - PLATELET COUNT 189 10^3/uL (130-450); RED CELL DISTRIBUTION WIDTH 13.9 % (12.0-15.0); WHITE BLOOD COUNT 4.7 x10^3/uL (4.8-10.8)
[2021-04-26 06:55] LABS: ALBUMIN 2.9 g/dL (3.2-5.5); ALBUMIN/GLOBULIN RATIO 1.1 (1.0-2.2); BILIRUBIN,TOTAL 0.7 mg/dL (0.2-1.0); CALCIUM 8.4 mg/dL (8.5-10.3); CREATININE 0.5 mg/dL (0.4-1.0); POTASSIUM 3.3 mmol/L (3.5-5.0); TOTAL PROTEIN 5.6 g/dL (6.7-8.2)
[2021-04-26] MEDS: NEUTRA-PHOS 250 MG TABLET PO SCH ×3 (09:35→16:30)
[2021-04-26] MEDS: polyethylene glycoL 3350 17 GM PACKET PO SCH (09:36)
[2021-04-26] MEDS: SODIUM CHLORIDE FLUSH 0.9% 10 ML SYRINGE IVP SCH ×3 (09:36→23:34)
[2021-04-26] MEDS: cefTRIAXone 1 GM in SODIUM CHLORIDE 0.9% MINIBAG 100 ML IV SCH (09:36)
[2021-04-26] MEDS: ENOXAPARIN 40 MG/0.4 ML SYRINGE SUBQ SCH (09:36)
--- NOTE | 2021-04-26 11:27 | PROVIDER PROGRESS NOTE ---
Assessment/Plan - Problem List (1) Altered mental status Assessment/Plan: 04/26 improved. she is alert and oriented two, herself and location. she report she had a good sleep, no pain. we will continue treatment of dehydration and infection. continue neuro check per Q8H 04/25 improved. continue treated underline dehydration and infection pt is confused at ER. ER provider Spoke with Ms Lam whose contact was on chart, and reported her mental status has some baseline confusion, but today it is not her normal. CT of head reveal no acute process. pt has UTI infection, and dehydration significantly as well, it is likely the cause for her acute confusion, delirium. neuro check Q4H, treat underline of UTI with antibiotics and IVF, Continue laboratory and vital signs monitor (2) UTI (urinary tract infection) Conclusion/Plan: Urinalysis Show many bacteria in urine and positive nitrate, ketones with protein, elevated gravity in urine. We will treat her with antibiotics Rocephin, Intravenous IV fluids, Follow-up with urine culture and blood culture (3) Rhabdomyolysis Conclusion/Plan: 04/26 improved. CK is down to 800 arrange, creatinine is at normal arrange, continue IVF (reduced to 100cc/h) 04/25 improved. CK is down to 1700 from over 3000, continue IVF and lab monitor Patient had unwitnessed fall at ground, unknown how long time she has been the ground, but it seem she had no injury. CK is over 3000, and increased BUN 48, but with normal arrange creatinine. ER already started with IVF, we will con tinue IVF, continue lab monitor and check CK daily as well. (4) Dehydration Conclusion/Plan: 04/26 improved, BUN is down to normal arrange, IVF at 100cc/h now. 04/25 improved. BUN is down to 31 from 48, continue IVF, and lab and vital monitor pt is confused and live alone, elevated BUN and urine gravity, indicated pt had significant dehydration. IVF, lab monitor and vital monitor. consult with social work therapist for disposition planning. It is likely pt need nurse facility to help her, pt can not take care of her self. (5) Hypokalemia Conclusion/Plan: 04/25 K is 3.3, continue replaced, lab monitor potassium is 2.8, replaced with potassium, lab monitor, add tele monitor as well. (6) Fall Conclusion/Plan: 04/25 PT/OT evaluation and treatment for pt, recommend to SNF, consult with social work therapist for d/c planning Patient has a history of multiple falls, she live alone. social work consult for pt, PT/OT evaluation and treatment for patient, nurse for fall precaution. (7) Multiple sclerosis Conclusion/Plan: Patient has a history of multiple sclerosis, chronic. pt has no acute respiratory distress. she had 97% O2 sat on room air. pt may followup with neurologist as out-pt - Current Meds Current Meds: Current Medications Generic Name Dose Route Start Last Admin Trade Name Freq PRN Reason Stop Dose Admin Enoxaparin Sodium 40 mg 04/25/21 09:00 04/26/21 09:36 Enoxaparin 40 Mg/0.4 Ml Syringe SUBQ 40 mg DAILY DONNA Administration Ceftriaxone Sodium 1 gm/ 100 mls @ 200 mls/hr 04/25/21 09:00 04/26/21 09:36 Sodium Chloride IV 200 mls/hr DAILY DONNA Administration Sodium Chloride 1,000 mls @ 125 mls/hr 04/25/21 18:40 04/26/21 04:22 Normal Saline 0.9% IV 125 mls/hr .Q8H DONNA Administration Polyethylene Glycol 17 gm 04/25/21 10:00 04/26/21 09:36 Polyethylene Glycol 3350 17 Gm Packet PO 17 gm DAILY DONNA Administration Sodium Chloride 10 ml 04/25/21 01:00 04/26/21 09:36 Sodium Chloride Flush 0.9% 10 Ml Syringe IVP Not Given 0100,0900,1700 DONNA Sodium Phosphate 250 mg 04/24/21 19:00 04/26/21 09:35 Neutra-Phos 250 Mg Tablet PO 250 mg TIDWM DONNA Administration - Lab Result Fish Bone Diagrams: 04/26/21 06:01 04/26/21 06:01 - Additional Planning My Orders: My Active Orders 04/25/21 16:53 Zinc Oxide 20% Oint [Zinc Oxide] 1 applic TOP PRN PRN 04/25/21 18:40 Sodium Chloride 0.9% [Normal Saline 0.9%] 1,000 ml IV 125 mls/hr 04/26/21 12:00 Cholecalciferol [Vitamin D3] 50 mcg PO DAILY Citalopram Hydrobromide [Celexa] 40 mg PO DAILY 04/27/21 05:00 CBC - COMP BLD CT W/AUTO DIFF [HEME] DAILYLAB CK- CREATINE KINASE [CHEM] DAILYLAB CMP [COMPREHENSIVE METABOLIC PANEL] [CHEM] DAILYLAB PHOSPHORUS [CHEM] DAILYLAB 04/28/21 05:00 CBC - COMP BLD CT W/AUTO DIFF [HEME] DAILYLAB CK- CREATINE KINASE [CHEM] DAILYLAB CMP [COMPREHENSIVE METABOLIC PANEL] [CHEM] DAILYLAB 04/29/21 05:00 CBC - COMP BLD CT W/AUTO DIFF [HEME] DAILYLAB CK- CREATINE KINASE [CHEM] DAILYLAB CMP [COMPREHENSIVE METABOLIC PANEL] [CHEM] DAILYLAB 04/30/21 05:00 CBC - COMP BLD CT W/AUTO DIFF [HEME] DAILYLAB CK- CREATINE KINASE [CHEM] DAILYLAB CMP [COMPREHENSIVE METABOLIC PANEL] [CHEM] DAILYLAB Subjective - Subjective Patient Reports: Feeling Better, Resting Comfortably Objective Vital Signs: Vital Signs - 24 hr 04/25/21 04/25/21 04/25/21 13:00 15:39 20:18 Temperature 36.4 C L 36.6 C 36.6 C Heart Rate [ 102 H 103 H 102 H Brachial] Heart Rate [ Monitoring electrodes] Respiratory 19 16 16 Rate Blood Pressure 136/63 H 129/68 130/55 L [Right Brachial artery] O2 Saturation 99 98 94 04/26/21 04/26/21 04/26/21 00:46 05:08 07:55 Temperature 36.4 C L 36.9 C 36.7 C Heart Rate [ 79 85 Brachial] Heart Rate [ 85 Monitoring electrodes] Respiratory 20 20 18 Rate Blood Pressure 126/60 125/51 L 102/77 [Right Brachial artery] O2 Saturation 96 96 96 Oxygen O2 Source Room air I&O (Last 24 Hrs): Intake and Output Totals x24h 04/24/21 04/25/21 04/26/21 23:59 23:59 23:59 Intake Total 2075 4180 1060 Output Total 575 825 Balance 2075 0385 235 General: Alert, Cooperative, No acute distress HEENT: Atraumatic Neck: Supple Lymphatic: no adenopathy Neuro: Alert, Non Focal Cardiovascular: Regular rate, Normal S1, Normal S2 Respiratory: Chest non-tender, No respiratory distress Abdomen: Normal bowel sounds, Soft, No tenderness Extremities: Normal pulses - Results Results: Laboratory Results WBC 4.7 x10^3/uL (4.8-10.8) L 04/26/21 06:01 RBC 3.70 10^6/uL (4.20-5.40) L 04/26/21 06:01 Hgb 10.6 g/dL (12.0-16.0) L 04/26/21 06:01 Hct 32.1 % (37.0-47.0) L 04/26/21 06:01 MCV 86.8 fL (81.0-99.0) 04/26/21 06:01 MCH 28.6 pg (27.0-31.0) 04/26/21 06:01 MCHC 33.0 g/dL (32.0-36.0) 04/26/21 06:01 RDW 13.9 % (12.0-15.0) 04/26/21 06:01 Plt Count 189 10^3/uL (130-450) 04/26/21 06:01 MPV 9.3 fL (7.9-10.8) 04/26/21 06:01 Neut # (Auto) 2.4 10^3/uL (1.5-6.6) 04/26/21 06:01 Lymph # (Auto) 1.8 10^3/uL (1.5-3.5) 04/26/21 06:01 [place] # (Auto) 0.5 10^3/uL (0.0-1.0) 04/26/21 06:01 Eos # (Auto) 0.1 10^3/uL (0.0-0.7) 04/26/21 06:01 Baso # (Auto) 0.0 10^3/uL (0.0-0.1) 04/26/21 06:01 Absolute Nucleated RBC 0.00 x10^3/uL 04/26/21 06:01 Nucleated RBC % 0.0 /100WBC 04/26/21 06:01 PT 14.2 secs (9.9-12.6) H 04/24/21 16:35 INR 1.3 (0.8-1.2) H 04/24/21 16:35 VBG pH 7.397 (7.31-7.41) 04/24/21 16:35 VBG pCO2 45.1 mmHg (41-51) 04/24/21 16:35 VBG pO2 29.3 mmHg (25-47) 04/24/21 16:35 VBG HCO3 27.1 mmol/L (23-28) 04/24/21 16:35 VBG Total CO2 28.5 mmol/L (24-29) 04/24/21 16:35 VBG O2 Saturation 56.8 % (60-80) L 04/24/21 16:35 VBG Base Excess 1.8 mmol/L (-2 - +2) 04/24/21 16:35 Sodium 140 mmol/L (135-145) 04/26/21 06:01 Potassium 3.3 mmol/L (3.5-5.0) L 04/26/21 06:01 Chloride 106 mmol/L (101-111) 04/26/21 06:01 Carbon Dioxide 26 mmol/L (21-32) 04/26/21 06:01 Anion Gap 8.0 (6-13) 04/26/21 06:01 BUN 16 mg/dL (6-20) 04/26/21 06:01 Creatinine 0.5 mg/dL (0.4-1.0) 04/26/21 06:01 Estimated GFR (MDRD) 122 (>89) 04/26/21 06:01 Glucose 94 mg/dL (70-100) 04/26/21 06:01 Lactic Acid 2.0 mmol/L (0.5-2.2) 04/24/21 16:35 Calcium 8.4 mg/dL (8.5-10.3) L 04/26/21 06:01 Phosphorus 2.0 mg/dL (2.5-4.6) L 04/26/21 06:01 Magnesium 2.0 mg/dL (1.7-2.8) 04/24/21 16:35 Total Bilirubin 0.7 mg/dL (0.2-1.0) 04/26/21 06:01 AST 61 IU/L (10-42) H 04/26/21 06:01 ALT 47 IU/L (10-60) 04/26/21 06:01 Alkaline Phosphatase 32 IU/L (42-121) L 04/26/21 06:01 Total Creatine Kinase 851 IU/L (22-269) H 04/26/21 06:01 Total Protein 5.6 g/dL (6.7-8.2) L 04/26/21 06:01 Albumin 2.9 g/dL (3.2-5.5) L 04/26/21 06:01 Globulin 2.7 g/dL (2.1-4.2) 04/26/21 06:01 Albumin/Globulin Ratio 1.1 (1.0-2.2) 04/26/21 06:01 TSH 1.13 uIU/mL (0.34-5.60) 04/24/21 16:35 Urine Color DARK YELLOW 04/24/21 17:03 Urine Clarity HAZY (CLEAR) 04/24/21 17:03 Urine pH 6.0 PH (5.0-7.5) 04/24/21 17:03 Ur Specific [place] >=1.030 (1.002-1.030) H 04/24/21 17:03 Urine Protein 30 mg/dL (NEGATIVE) H 04/24/21 17:03 Urine Glucose (UA) NEGATIVE mg/dL (NEGATIVE) 04/24/21 17:03 Urine Ketones 15 mg/dL (NEGATIVE) H 04/24/21 17:03 Urine Occult Blood MODERATE (NEGATIVE) H 04/24/21 17:03 Urine Nitrite POSITIVE (NEGATIVE) H 04/24/21 17:03 Urine Bilirubin NEGATIVE (NEGATIVE) 04/24/21 17:03 Urine Urobilinogen 0.2 (NORMAL) E.U./dL (NORMAL) 04/24/21 17:03 Ur Leukocyte Esterase NEGATIVE (NEGATIVE) 04/24/21 17:03 Urine RBC 0-5 /HPF (0-5) 04/24/21 17:03 Urine WBC 4-5 /HPF (0-5) 04/24/21 17:03 Ur Squamous Epith Cells NONE SEEN (<= Few) 04/24/21 17:03 Urine Bacteria Many /HPF (None Seen) H 04/24/21 17:03 Ur Microscopic Review INDICATED 04/24/21 17:03 Urine Culture Comments INDICATED 04/24/21 17:03 Nasal Adenovirus (PCR) NOT DETECTED 04/24/21 16:40 Nasal B. parapertussis DNA (PCR) NOT DETECTED 04/24/21 16:40 Nasal Coronavir 229E PCR NOT DETECTED 04/24/21 16:40 Nasal Coronavir HKU1 PCR NOT DETECTED 04/24/21 16:40 Nasal Coronavir NL63 PCR NOT DETECTED 04/24/21 16:40 Nasal Coronavir OC43 PCR NOT DETECTED 04/24/21 16:40 Nasal Enterovir/Rhinovir PCR NOT DETECTED 04/24/21 16:40 Nasal Influenza B PCR NOT DETECTED 04/24/21 16:40 Nasal Influenza A PCR NOT DETECTED 04/24/21 16:40 Nasal Parainfluen 1 PCR NOT DETECTED 04/24/21 16:40 Nasal Parainfluen 2 PCR NOT DETECTED 04/24/21 16:40 Nasal Parainfluen 3 PCR NOT DETECTED 04/24/21 16:40 Nasal Parainfluen 4 PCR NOT DETECTED 04/24/21 16:40 Nasal RSV (PCR) NOT DETECTED 04/24/21 16:40 Nasal B.pertussis DNA PCR NOT DETECTED 04/24/21 16:40 Nasal C.pneumoniae (PCR) NOT DETECTED 04/24/21 16:40 [place] Human Metapneumo PCR NOT DETECTED 04/24/21 16:40 Nasal M.pneumoniae (PCR) NOT DETECTED 04/24/21 16:40 Nasal SARS-CoV-2 (PCR) NOT DETECTED 04/24/21 16:40 Salicylates < 6.0 mg/dL 04/24/21 16:35 Urine Opiates Screen NEGATIVE (NEGATIVE) 04/24/21 17:03 Ur Oxycodone Screen NEGATIVE (NEGATIVE) 04/24/21 17:03 Urine Methadone Screen NEGATIVE (NEGATIVE) 04/24/21 17:03 Ur Propoxyphene Screen NEGATIVE (NEGATIVE) 04/24/21 17:03 Acetaminophen < 10 ug/mL (10-30) L 04/24/21 16:35 Ur Barbiturates Screen NEGATIVE (NEGATIVE) 04/24/21 17:03 Ur Tricyclics Screen NEGATIVE (NEGATIVE) 04/24/21 17:03 Ur Phencyclidine Scrn NEGATIVE (NEGATIVE) 04/24/21 17:03 Ur Amphetamine Screen NEGATIVE (NEGATIVE) 04/24/21 17:03 U Methamphetamines Scrn NEGATIVE (NEGATIVE) 04/24/21 17:03 U Benzodiazepines Scrn NEGATIVE (NEGATIVE) 04/24/21 17:03 Urine Cocaine Screen NEGATIVE (NEGATIVE) 04/24/21 17:03 U Cannabinoids Screen NEGATIVE (NEGATIVE) 04/24/21 17:03 Ethyl Alcohol < 5.0 mg/dL 04/24/21 16:35 ABX Reporting Has patient been on IV antibiotics over the past 48 hours?: Yes Current Medications - Current Medications Current Medications: Active Medications Acetaminophen (Acetaminophen 325 Mg Tablet) 650 mg PO Q4HR PRN PRN Reason: Pain 1 to 4 Cholecalciferol (Cholecalciferol 25 Mcg Tablet) 50 mcg PO DAILY [facility] Citalopram Hydrobromide (Citalopram Hydrobromide 20 Mg Tablet) 40 mg PO DAILY [facility] Enoxaparin Sodium (Enoxaparin 40 Mg/0.4 Ml Syringe) 40 mg SUBQ DAILY [facility] Last Admin: 04/26/21 09:36 Dose: 40 mg Documented by: Ceftriaxone Sodium 1 gm/ (Sodium Chloride) 100 mls @ 200 mls/hr IV DAILY [facility] Last Admin: 04/26/21 09:36 Dose: 200 mls/hr Documented by: Sodium Chloride (Normal Saline 0.9%) 1,000 mls @ 100 mls/hr IV .Q10H [facility] Stop: 04/27/21 07:26 Multi-Ingredient Ointment (Zinc Oxide 20% Oint 30 Gm Tube) 1 applic TOP PRN PRN PRN Reason: Skin Care Ondansetron HCl (Ondansetron 4 Mg/2 Ml Vial) 4 mg IVP Q6HR PRN PRN Reason: Nausea / Vomiting Polyethylene Glycol (Polyethylene Glycol 3350 17 Gm Packet) 17 gm PO DAILY [facility] Last Admin: 04/26/21 09:36 Dose: 17 gm Documented by: Potassium Chloride (Potassium Chloride 20 Meq Tablet) 20 meq PO ONCE ONE Stop: 04/26/21 11:32 Sodium Chloride (Sodium Chloride Flush 0.9% 10 Ml Syringe) 10 ml IVP PRN PRN PRN Reason: NEEDED PER PROVIDER ORDERS Sodium Chloride (Sodium Chloride Flush 0.9% 10 Ml Syringe) 10 ml IVP 0100,0900,1700 [facility] Last Admin: 04/26/21 09:36 Dose: Not Given Documented by: Sodium Phosphate (Neutra-Phos 250 Mg Tablet) 250 mg PO TIDWM [facility] Last Admin: 04/26/21 09:35 Dose: 250 mg Documented by: Cholecalciferol (Vitamin D3) [Vitamin D3] 50 mcg PO DAILY 04/25/21 Citalopram Hydrobromide [Citalopram HBr] 40 mg PO DAILY 04/25/21
[2021-04-26] MEDS ORDERED: POTASSIUM CHLORIDE 20 MEQ TABLET PO ONE (11:31)
[2021-04-26] MEDS: CITALOPRAM HYDROBROMIDE 20 MG TABLET PO SCH (11:40)
[2021-04-26] MEDS: CHOLECALCIFEROL 25 MCG TABLET PO SCH (11:41)
[2021-04-26] MEDS: SACCHAROMYCES BOULARDII 250 MG CAPSULE PO SCH (16:30)
[2021-04-27 06:19] LABS: BASOPHILS % (AUTO) 0.7 %; EOSINOPHILS # (AUTO) 0.1 10^3/uL (0.0-0.7); EOSINOPHILS % (AUTO) 1.7 %; HCT - HEMATOCRIT 35.2 % (37.0-47.0); HGB - HEMOGLOBIN 11.6 g/dL (12.0-16.0); LYMPHOCYTES # (AUTO) 1.3 10^3/uL (1.5-3.5); LYMPHOCYTES % (AUTO) 32.6 %; MEAN CORPUSCULAR HEMOGLOBIN 28.2 pg (27.0-31.0); MEAN CORPUSCULAR VOLUME 85.4 fL (81.0-99.0); MEAN PLATELET VOLUME 9.2 fL (7.9-10.8); MONOCYTES # (AUTO) 0.5 10^3/uL (0.0-1.0); MONOCYTES % (AUTO) 11.2 %; NEUTROPHILS # (AUTO) 2.2 10^3/uL (1.5-6.6); NEUTROPHILS % (AUTO) 53.6 %; PLT - PLATELET COUNT 207 10^3/uL (130-450); RED BLOOD COUNT 4.12 10^6/uL (4.20-5.40); RED CELL DISTRIBUTION WIDTH 13.5 % (12.0-15.0); WHITE BLOOD COUNT 4.1 x10^3/uL (4.8-10.8)
[2021-04-27 06:30] LABS: ALBUMIN 3.1 g/dL (3.2-5.5); ALBUMIN/GLOBULIN RATIO 1.1 (1.0-2.2); BILIRUBIN,TOTAL 0.6 mg/dL (0.2-1.0); CREATININE 0.5 mg/dL (0.4-1.0); PHOSPHORUS 2.8 mg/dL (2.5-4.6); POTASSIUM 3.5 mmol/L (3.5-5.0); TOTAL PROTEIN 5.8 g/dL (6.7-8.2)
[2021-04-27] MEDS: SACCHAROMYCES BOULARDII 250 MG CAPSULE PO SCH ×2 (08:19→17:08)
[2021-04-27] MEDS: CHOLECALCIFEROL 25 MCG TABLET PO SCH (08:20)
[2021-04-27] MEDS: CITALOPRAM HYDROBROMIDE 20 MG TABLET PO SCH (08:20)
[2021-04-27] MEDS: SODIUM CHLORIDE 0.9% 1,000 ML IV SCH ×2 (08:24→20:44)
[2021-04-27] MEDS: SODIUM CHLORIDE FLUSH 0.9% 10 ML SYRINGE IVP SCH ×3 (08:29→23:36)
[2021-04-27] MEDS: polyethylene glycoL 3350 17 GM PACKET PO SCH (08:29)
[2021-04-27] MEDS: cefTRIAXone 1 GM in SODIUM CHLORIDE 0.9% MINIBAG 100 ML IV SCH (08:30)
[2021-04-27] MEDS: ENOXAPARIN 40 MG/0.4 ML SYRINGE SUBQ SCH (08:34)
--- NOTE | 2021-04-27 09:30 | PROVIDER PROGRESS NOTE ---
Assessment/Plan - Problem List (1) Altered mental status Assessment/Plan: 04/27 mental status is returned to her baseline, she is alert and oriented. 04/26 improved. she is alert and oriented two, herself and location. she report she had a good sleep, no pain. we will continue treatment of dehydration and infection. continue neuro check per Q8H 04/25 improved. continue treated underline dehydration and infection pt is confused at ER. ER provider Spoke with Ms Lam whose contact was on chart, and reported her mental status has some baseline confusion, but today it is not her normal. CT of head reveal no acute process. pt has UTI infection, and dehydration significantly as well, it is likely the cause for her acute confusion, delirium. neuro check Q4H, treat underline of UTI with antibiotics and IVF, Continue laboratory and vital signs monitor (2) UTI (urinary tract infection) Conclusion/Plan: 04/27 UA culture show positive for Ecoli, and sensitive to All antibiotics Urinalysis Show many bacteria in urine and positive nitrate, ketones with pr otein, elevated gravity in urine. We will treat her with antibiotics Rocephin, Intravenous IV fluids, Follow-up with urine culture and blood culture (3) Rhabdomyolysis Conclusion/Plan: 04/27 improved. CK is down to 400, creatinine is at normal arrange, continue gentle IVF, lab monitor 04/26 improved. CK is down to 800 arrange, creatinine is at normal arrange, continue IVF (reduced to 100cc/h) 04/25 improved. CK is down to 1700 from over 3000, continue IVF and lab monitor Patient had unwitnessed fall at ground, unknown how long time she has been the ground, but it seem she had no injury. CK is over 3000, and increased BUN 48, but with normal arrange creatinine. ER already started with IVF, we will continue IVF, continue lab monitor and check CK daily as well. (4) Dehydration Conclusion/Plan: 04/26 improved, BUN is down to normal arrange, IVF at 100cc/h now. 04/25 improved. BUN is down to 31 from 48, continue IVF, and lab and vital monitor pt is confused and live alone, elevated BUN and urine gravity, indicated pt had significant dehydration. IVF, lab monitor and vital monitor. consult with social worker psychiatric for disposition planning. It is likely pt need nurse facility to help her, pt can not take care of her self. (5) Hypokalemia Conclusion/Plan: 04/27 resolved 04/25 K is 3.3, continue replaced, lab monitor potassium is 2.8, replaced with potassium, lab monitor, add tele monitor as well. (6) Fall Conclusion/Plan: 04/27 will continue OT cognitive evaluation, and PT evaluation and treatment, pt was recommended to SNF, consult with social worker psychiatric for disposition planning. 04/25 PT/OT evaluation and treatment for pt, recommend to SNF, consult with social worker psychiatric for d/c planning Patient has a history of multiple falls, she live alone. social work consult for pt, PT/OT evaluation and treatment for patient, nurse for fall precaution. (7) Multiple sclerosis Conclusion/Plan: Patient has a history of multiple sclerosis, chronic. pt has no acute respiratory distress. she had 97% O2 sat on room air. pt may followup with neurologist as out-pt - Current Meds Current Meds: Current Medications Generic Name Dose Route Start Last Admin Trade Name Freq PRN Reason Stop Dose Admin Cholecalciferol 50 mcg 04/26/21 12:00 04/27/21 08:20 Cholecalciferol 25 Mcg Tablet PO 50 mcg DAILY DONNA Administration Citalopram Hydrobromide 40 mg 04/26/21 12:00 04/27/21 08:20 Citalopram Hydrobromide 20 Mg Tablet PO 40 mg DAILY DONNA Administration Enoxaparin Sodium 40 mg 04/25/21 09:00 04/27/21 08:34 Enoxaparin 40 Mg/0.4 Ml Syringe SUBQ 40 mg DAILY DONNA Administration Ceftriaxone Sodium 1 gm/ 100 mls @ 200 mls/hr 04/25/21 09:00 04/27/21 09:15 Sodium Chloride IV Infused DAILY DONNA Infusion Sodium Chloride 1,000 mls @ 83.333 mls/hr 04/27/21 08:00 04/27/21 08:24 Normal Saline 0.9% IV 04/28/21 07:59 83.333 mls/hr .Q12H DONNA Administration Multi-Ingredient Ointment 1 applic 04/25/21 16:53 04/26/21 20:45 Zinc Oxide 20% Oint 30 Gm Tube TOP 1 applic PRN PRN Administration Skin Care Polyethylene Glycol 17 gm 04/25/21 10:00 04/27/21 08:29 Polyethylene Glycol 3350 17 Gm Packet PO Not Given DAILY DONNA Saccharomyces Boulardii 250 mg 04/26/21 17:00 04/27/21 08:19 Saccharomyces Boulardii 250 Mg Capsule PO 250 mg BIDWM DONNA Administration Sodium Chloride 10 ml 04/25/21 01:00 04/27/21 08:29 Sodium Chloride Flush 0.9% 10 Ml Syringe IVP 10 ml 0100,0900,1700 DONNA Administration - Lab Result Fish Bone Diagrams: 04/27/21 05:55 04/27/21 05:55 - Additional Planning My Orders: My Active Orders 04/26/21 12:00 Cholecalciferol [Vitamin D3] 50 mcg PO DAILY Citalopram Hydrobromide [Celexa] 40 mg PO DAILY 04/26/21 17:00 Saccharomyces Boulardii [Florastor] 250 mg PO BIDWM 04/27/21 08:00 Sodium Chloride 0.9% [Normal Saline 0.9%] 1,000 ml IV 83.333 mls/hr 04/28/21 05:00 CBC - COMP BLD CT W/AUTO DIFF [HEME] DAILYLAB CK- CREATINE KINASE [CHEM] DAILYLAB CMP [COMPREHENSIVE METABOLIC PANEL] [CHEM] DAILYLAB 04/29/21 05:00 CBC - COMP BLD CT W/AUTO DIFF [HEME] DAILYLAB CK- CREATINE KINASE [CHEM] DAILYLAB CMP [COMPREHENSIVE METABOLIC PANEL] [CHEM] DAILYLAB 04/30/21 05:00 CBC - COMP BLD CT W/AUTO DIFF [HEME] DAILYLAB CK- CREATINE KINASE [CHEM] DAILYLAB CMP [COMPREHENSIVE METABOLIC PANEL] [CHEM] DAILYLAB Subjective - Subjective Patient Reports: Feeling Better, Resting Comfortably Objective Vital Signs: Vital Signs - 24 hr 04/26/21 04/26/21 04/26/21 13:00 17:00 20:09 Temperature 36.8 C 36.9 C 36.9 C Heart Rate [ 77 78 Brachial] Heart Rate [ 80 Monitoring electrodes] Respiratory 18 19 16 Rate Blood Pressure 125/65 100/64 108/84 H [Right Brachial artery] O2 Saturation 95 93 96 04/26/21 04/27/21 04/27/21 23:39 04:08 08:29 Temperature 36.5 C 36.9 C 36.5 C Heart Rate [ 80 76 73 Brachial] Heart Rate [ Monitoring electrodes] Respiratory 18 18 18 Rate Blood Pressure 136/66 H 137/76 H 149/60 H [Right Brachial artery] O2 Saturation 99 94 96 Oxygen O2 Source Room air I&O (Last 24 Hrs): Intake and Output Totals x24h 04/25/21 04/26/21 04/27/21 23:59 23:59 23:59 Intake Total 4180 4151.333 100 Output Total 575 2325 1100 Balance 3605 1826.333 -1000 General: Alert, Cooperative, No acute distress HEENT: Atraumatic Neck: Supple Neuro: Alert, Non Focal Cardiovascular: Regular rate, Normal S1, Normal S2 Respiratory: Chest non-tender, No respiratory distress Abdomen: Normal bowel sounds, Soft Extremities: Normal pulses - Results Results: Laboratory Results WBC 4.1 x10^3/uL (4.8-10.8) L 04/27/21 05:55 RBC 4.12 10^6/uL (4.20-5.40) L 04/27/21 05:55 Hgb 11.6 g/dL (12.0-16.0) L 04/27/21 05:55 Hct 35.2 % (37.0-47.0) L 04/27/21 05:55 MCV 85.4 fL (81.0-99.0) 04/27/21 05:55 MCH 28.2 pg (27.0-31.0) 04/27/21 05:55 MCHC 33.0 g/dL (32.0-36.0) 04/27/21 05:55 RDW 13.5 % (12.0-15.0) 04/27/21 05:55 Plt Count 207 10^3/uL (130-450) 04/27/21 05:55 MPV 9.2 fL (7.9-10.8) 04/27/21 05:55 Neut # (Auto) 2.2 10^3/uL (1.5-6.6) 04/27/21 05:55 Lymph # (Auto) 1.3 10^3/uL (1.5-3.5) L 04/27/21 05:55 [place] # (Auto) 0.5 10^3/uL (0.0-1.0) 04/27/21 05:55 Eos # (Auto) 0.1 10^3/uL (0.0-0.7) 04/27/21 05:55 Baso # (Auto) 0.0 10^3/uL (0.0-0.1) 04/27/21 05:55 Absolute Nucleated RBC 0.00 x10^3/uL 04/27/21 05:55 Nucleated RBC % 0.0 /100WBC 04/27/21 05:55 PT 14.2 secs (9.9-12.6) H 04/24/21 16:35 INR 1.3 (0.8-1.2) H 04/24/21 16:35 VBG pH 7.397 (7.31-7.41) 04/24/21 16:35 VBG pCO2 45.1 mmHg (41-51) 04/24/21 16:35 VBG pO2 29.3 mmHg (25-47) 04/24/21 16:35 VBG HCO3 27.1 mmol/L (23-28) 04/24/21 16:35 VBG Total CO2 28.5 mmol/L (24-29) 04/24/21 16:35 VBG O2 Saturation 56.8 % (60-80) L 04/24/21 16:35 VBG Base Excess 1.8 mmol/L (-2 - +2) 04/24/21 16:35 Sodium 139 mmol/L (135-145) 04/27/21 05:55 Potassium 3.5 mmol/L (3.5-5.0) 04/27/21 05:55 Chloride 101 mmol/L (101-111) 04/27/21 05:55 Carbon Dioxide 31 mmol/L (21-32) 04/27/21 05:55 Anion Gap 7.0 (6-13) 04/27/21 05:55 BUN 9 mg/dL (6-20) 04/27/21 05:55 Creatinine 0.5 mg/dL (0.4-1.0) 04/27/21 05:55 Estimated GFR (MDRD) 122 (>89) 04/27/21 05:55 Glucose 94 mg/dL (70-100) 04/27/21 05:55 Lactic Acid 2.0 mmol/L (0.5-2.2) 04/24/21 16:35 Calcium 9.0 mg/dL (8.5-10.3) 04/27/21 05:55 Phosphorus 2.8 mg/dL (2.5-4.6) 04/27/21 05:55 Magnesium 2.0 mg/dL (1.7-2.8) 04/24/21 16:35 Total Bilirubin 0.6 mg/dL (0.2-1.0) 04/27/21 05:55 AST 43 IU/L (10-42) H 04/27/21 05:55 ALT 45 IU/L (10-60) 04/27/21 05:55 Alkaline Phosphatase 41 IU/L (42-121) L 04/27/21 05:55 Total Creatine Kinase 397 IU/L (22-269) H 04/27/21 05:55 Total Protein 5.8 g/dL (6.7-8.2) L 04/27/21 05:55 Albumin 3.1 g/dL (3.2-5.5) L 04/27/21 05:55 Globulin 2.7 g/dL (2.1-4.2) 04/27/21 05:55 Albumin/Globulin Ratio 1.1 (1.0-2.2) 04/27/21 05:55 TSH 1.13 uIU/mL (0.34-5.60) 04/24/21 16:35 Urine Color DARK YELLOW 04/24/21 17:03 Urine Clarity HAZY (CLEAR) 04/24/21 17:03 Urine pH 6.0 PH (5.0-7.5) 04/24/21 17:03 Ur Specific [place] >=1.030 (1.002-1.030) H 04/24/21 17:03 Urine Protein 30 mg/dL (NEGATIVE) H 04/24/21 17:03 Urine Glucose (UA) NEGATIVE mg/dL (NEGATIVE) 04/24/21 17:03 Urine Ketones 15 mg/dL (NEGATIVE) H 04/24/21 17:03 Urine Occult Blood MODERATE (NEGATIVE) H 04/24/21 17:03 Urine Nitrite POSITIVE (NEGATIVE) H 04/24/21 17:03 Urine Bilirubin NEGATIVE (NEGATIVE) 04/24/21 17:03 Urine Urobilinogen 0.2 (NORMAL) E.U./dL (NORMAL) 04/24/21 17:03 Ur Leukocyte Esterase NEGATIVE (NEGATIVE) 04/24/21 17:03 Urine RBC 0-5 /HPF (0-5) 04/24/21 17:03 Urine WBC 4-5 /HPF (0-5) 04/24/21 17:03 Ur Squamous Epith Cells NONE SEEN (<= Few) 04/24/21 17:03 Urine Bacteria Many /HPF (None Seen) H 04/24/21 17:03 Ur Microscopic Review INDICATED 04/24/21 17:03 Urine Culture Comments INDICATED 04/24/21 17:03 Nasal Adenovirus (PCR) NOT DETECTED 04/24/21 16:40 Nasal B. parapertussis DNA (PCR) NOT DETECTED 04/24/21 16:40 Nasal Coronavir 229E PCR NOT DETECTED 04/24/21 16:40 Nasal Coronavir HKU1 PCR NOT DETECTED 04/24/21 16:40 Nasal Coronavir NL63 PCR NOT DETECTED 04/24/21 16:40 Nasal Coronavir OC43 PCR NOT DETECTED 04/24/21 16:40 Nasal Enterovir/Rhinovir PCR NOT DETECTED 04/24/21 16:40 Nasal Influenza B PCR NOT DETECTED 04/24/21 16:40 Nasal Influenza A PCR NOT DETECTED 04/24/21 16:40 Nasal Parainfluen 1 PCR NOT DETECTED 04/24/21 16:40 Nasal Parainfluen 2 PCR NOT DETECTED 04/24/21 16:40 Nasal Parainfluen 3 PCR NOT DETECTED 04/24/21 16:40 Nasal Parainfluen 4 PCR NOT DETECTED 04/24/21 16:40 Nasal RSV (PCR) NOT DETECTED 04/24/21 16:40 Nasal B.pertussis DNA PCR NOT DETECTED 04/24/21 16:40 Nasal C.pneumoniae (PCR) NOT DETECTED 04/24/21 16:40 [place] Human Metapneumo PCR NOT DETECTED 04/24/21 16:40 Nasal M.pneumoniae (PCR) NOT DETECTED 04/24/21 16:40 Nasal SARS-CoV-2 (PCR) NOT DETECTED 04/24/21 16:40 Salicylates < 6.0 mg/dL 04/24/21 16:35 Urine Opiates Screen NEGATIVE (NEGATIVE) 04/24/21 17:03 Ur Oxycodone Screen NEGATIVE (NEGATIVE) 04/24/21 17:03 Urine Methadone Screen NEGATIVE (NEGATIVE) 04/24/21 17:03 Ur Propoxyphene Screen NEGATIVE (NEGATIVE) 04/24/21 17:03 Acetaminophen < 10 ug/mL (10-30) L 04/24/21 16:35 Ur Barbiturates Screen NEGATIVE (NEGATIVE) 04/24/21 17:03 Ur Tricyclics Screen NEGATIVE (NEGATIVE) 04/24/21 17:03 Ur Phencyclidine Scrn NEGATIVE (NEGATIVE) 04/24/21 17:03 Ur Amphetamine Screen NEGATIVE (NEGATIVE) 04/24/21 17:03 U Methamphetamines Scrn NEGATIVE (NEGATIVE) 04/24/21 17:03 U Benzodiazepines Scrn NEGATIVE (NEGATIVE) 04/24/21 17:03 Urine Cocaine Screen NEGATIVE (NEGATIVE) 04/24/21 17:03 U Cannabinoids Screen NEGATIVE (NEGATIVE) 04/24/21 17:03 Ethyl Alcohol < 5.0 mg/dL 04/24/21 16:35 ABX Reporting Has patient been on IV antibiotics over the past 48 hours?: Yes Current Medications - Current Medications Current Medications: Active Medications Acetaminophen (Acetaminophen 325 Mg Tablet) 650 mg PO Q4HR PRN PRN Reason: Pain 1 to 4 Cholecalciferol (Cholecalciferol 25 Mcg Tablet) 50 mcg PO DAILY [facility] Last Admin: 04/27/21 08:20 Dose: 50 mcg Documented by: Citalopram Hydrobromide (Citalopram Hydrobromide 20 Mg Tablet) 40 mg PO DAILY [facility] Last Admin: 04/27/21 08:20 Dose: 40 mg Documented by: Enoxaparin Sodium (Enoxaparin 40 Mg/0.4 Ml Syringe) 40 mg SUBQ DAILY [facility] Last Admin: 04/27/21 08:34 Dose: 40 mg Documented by: Ceftriaxone Sodium 1 gm/ (Sodium Chloride) 100 mls @ 200 mls/hr IV DAILY [facility] Last Infusion: 04/27/21 09:15 Dose: Infused Documented by: Sodium Chloride (Normal Saline 0.9%) 1,000 mls @ 83.333 mls/hr IV .Q12H [facility] Stop: 04/28/21 07:59 Last Admin: 04/27/21 08:24 Dose: 83.333 mls/hr Documented by: Multi-Ingredient Ointment (Zinc Oxide 20% Oint 30 Gm Tube) 1 applic TOP PRN PRN PRN Reason: Skin Care Last Admin: 04/26/21 20:45 Dose: 1 applic Documented by: Ondansetron HCl (Ondansetron 4 Mg/2 Ml Vial) 4 mg IVP Q6HR PRN PRN Reason: Nausea / Vomiting Polyethylene Glycol (Polyethylene Glycol 3350 17 Gm Packet) 17 gm PO DAILY [facility] Last Admin: 04/27/21 08:29 Dose: Not Given Documented by: Saccharomyces Boulardii (Saccharomyces Boulardii 250 Mg Capsule) 250 mg PO BIDWM [facility] Last Admin: 04/27/21 08:19 Dose: 250 mg Documented by: Sodium Chloride (Sodium Chloride Flush 0.9% 10 Ml Syringe) 10 ml IVP PRN PRN PRN Reason: NEEDED PER PROVIDER ORDERS Sodium Chloride (Sodium Chloride Flush 0.9% 10 Ml Syringe) 10 ml IVP 0100,0900,1700 [facility] Last Admin: 04/27/21 08:29 Dose: 10 ml Documented by: Cholecalciferol (Vitamin D3) [Vitamin D3] 50 mcg PO DAILY 04/25/21 Citalopram Hydrobromide [Citalopram HBr] 40 mg PO DAILY 04/25/21
[2021-04-27] MEDS: ACETAMINOPHEN 325 MG TABLET PO PRN (17:08)
[2021-04-28 06:20] LABS: BASOPHILS % (AUTO) 0.5 %; EOSINOPHILS # (AUTO) 0.1 10^3/uL (0.0-0.7); EOSINOPHILS % (AUTO) 2.8 %; HCT - HEMATOCRIT 36.8 % (37.0-47.0); LYMPHOCYTES # (AUTO) 1.7 10^3/uL (1.5-3.5); MEAN CORPUSCULAR HEMOGLOBIN 27.9 pg (27.0-31.0); MEAN CORPUSCULAR HGB CONC 32.6 g/dL (32.0-36.0); MEAN CORPUSCULAR VOLUME 85.6 fL (81.0-99.0); MEAN PLATELET VOLUME 9.2 fL (7.9-10.8); MONOCYTES # (AUTO) 0.4 10^3/uL (0.0-1.0); MONOCYTES % (AUTO) 10.4 %; NEUTROPHILS # (AUTO) 1.9 10^3/uL (1.5-6.6); NEUTROPHILS % (AUTO) 46.1 %; PLT - PLATELET COUNT 213 10^3/uL (130-450); RED CELL DISTRIBUTION WIDTH 13.6 % (12.0-15.0); WHITE BLOOD COUNT 4.2 x10^3/uL (4.8-10.8)
[2021-04-28 06:32] LABS: ALBUMIN 3.2 g/dL (3.2-5.5); ALBUMIN/GLOBULIN RATIO 1.1 (1.0-2.2); BILIRUBIN,TOTAL 0.4 mg/dL (0.2-1.0); CREATININE 0.6 mg/dL (0.4-1.0); POTASSIUM 3.7 mmol/L (3.5-5.0)
[2021-04-28] MEDS: CHOLECALCIFEROL 25 MCG TABLET PO SCH (08:58)
[2021-04-28] MEDS: CITALOPRAM HYDROBROMIDE 20 MG TABLET PO SCH (08:59)
[2021-04-28] MEDS: cefTRIAXone 1 GM in SODIUM CHLORIDE 0.9% MINIBAG 100 ML IV SCH (08:59)
[2021-04-28] MEDS: SACCHAROMYCES BOULARDII 250 MG CAPSULE PO SCH ×2 (08:59→17:36)
[2021-04-28] MEDS: ENOXAPARIN 40 MG/0.4 ML SYRINGE SUBQ SCH (09:00)
[2021-04-28] MEDS: polyethylene glycoL 3350 17 GM PACKET PO SCH (09:03)
--- NOTE | 2021-04-28 09:06 | PROVIDER PROGRESS NOTE ---
Subjective - Prog Note Date Prog Note Date: 04/28/21 - Subjective Pt reports feeling: Improved Subjective: Pt reports she did not sleep well overnight but that she feels "okay" today. Denies pain, nausea, vomiting, shortness of breath. Objective - Vital Signs/Intake & Output Reviewed Vital Signs: Yes Vital Signs: Vital Signs x48h Temp Pulse Resp BP Pulse Ox 04/28/21 07:46 36.5 C 79 18 145/57 H 95 04/28/21 05:32 36.5 C 74 20 102/71 97 Intake & Output: Intake & Output 04/25/21 04/26/21 04/27/21 04/28/21 23:59 23:59 23:59 23:59 Intake Total 4180 4151.333 2144.999 1056.001 Output Total 575 2325 1500 1350 Balance 3605 1826.333 644.999 -293.999 - Objective General Appearance: positive: No acute distress, Alert Eyes Bilateral: positive: Normal inspection, PERRL ENT: positive: ENT inspection nml, No signs of dehydration Neck: positive: Nml inspection Respiratory: positive: Chest non-tender, No respiratory distress, Breath sounds nml Cardiovascular: positive: Regular rate & rhythm, No murmur, No gallop Peripheral Pulses: 2+ Radial (R), 2+ Radial (L), 2+ Dorsalis pedis (R), 2+ Dorsalis pedis (L) Abdomen: positive: Non-tender, No organomegaly, Nml bowel sounds, No distention Skin: positive: Color nml Extremities: positive: Non-tender, Full ROM, Nml appearance Neurologic/Psychiatric: positive: Oriented x3, Mood/affect nml - Lab Results Fish Bones: 04/28/21 05:55 04/28/21 05:55 Other Labs: Lab Results x24hrs 04/28/21 04/28/21 Range/Units 05:55 05:55 WBC 4.2 L (4.8-10.8) x10^3/uL RBC 4.30 (4.20-5.40) 10^6/uL Hgb 12.0 (12.0-16.0) g/dL Hct 36.8 L (37.0-47.0) % MCV 85.6 (81.0-99.0) fL MCH 27.9 (27.0-31.0) pg MCHC 32.6 (32.0-36.0) g/dL RDW 13.6 (12.0-15.0) % Plt Count 213 (130-450) 10^3/uL MPV 9.2 (7.9-10.8) fL Neut # (Auto) 1.9 (1.5-6.6) 10^3/uL Lymph # (Auto) 1.7 (1.5-3.5) 10^3/uL [place] # (Auto) 0.4 (0.0-1.0) 10^3/uL Eos # (Auto) 0.1 (0.0-0.7) 10^3/uL Baso # (Auto) 0.0 (0.0-0.1) 10^3/uL Absolute Nucleated RBC 0.00 x10^3/uL Nucleated RBC % 0.0 /100WBC Sodium 140 (135-145) mmol/L Potassium 3.7 (3.5-5.0) mmol/L Chloride 103 (101-111) mmol/L Carbon Dioxide 28 (21-32) mmol/L Anion Gap 9.0 (6-13) BUN 8 (6-20) mg/dL Creatinine 0.6 (0.4-1.0) mg/dL Estimated GFR (MDRD) 99 (>89) Glucose 93 (70-100) mg/dL Calcium 9.0 (8.5-10.3) mg/dL Total Bilirubin 0.4 (0.2-1.0) mg/dL AST 28 (10-42) IU/L ALT 36 (10-60) IU/L Alkaline Phosphatase 41 L (42-121) IU/L Total Creatine Kinase 193 (22-269) IU/L Total Protein 6.0 L (6.7-8.2) g/dL Albumin 3.2 (3.2-5.5) g/dL Globulin 2.8 (2.1-4.2) g/dL Albumin/Globulin Ratio 1.1 (1.0-2.2) ABX Reporting Has patient been on IV antibiotics over the past 48 hours?: Yes Assessment/Plan - Problem List (1) UTI (urinary tract infection) Impression: UA culture was positive for E Coli. She has been receiving IV Ceftriaxone for treatment and this is day 3 of IV antibiotics. Her WBC is 4 and her vitals have been stable, afebrile. She will be transitioned to oral antibiotics this evening for a total 4 day course of antibiotics after her 2100 dose tomorrow. -Stop Ceftriaxone -Start Cefpodoxime 100mg po BID, last dose Friday evening (2) Fall Impression: Per admission notes she has a history of multiple falls and lives along. She has not fallen while admitted. Will continue with fall precautions and PT evaluation as she was recommended to d/c to a SNF -Social work consult for dispo planning/SNF referral (3) Multiple sclerosis Impression: Stable. Pt has known chronic MS. No dyspnea, satting appropriately on room air. No swallowing difficulties noted by nursing or patient. She should continue to follow up with her Neurologist as an outpatient for continued management. (4) Altered mental status Impression: Resolved. Pt is alert and oriented to person, place, and date and per prior provider notes is back to baseline. Qualifiers: Altered mental status type: unspecified Qualified Code(s): R41.82 - Altered mental status, unspecified (5) Rhabdomyolysis Impression: Resolved. Per prior provider noets, she had an unwitnessed ground level fall and it was unclear for how long she was down. She did not have any visible physical injuries. Her CK on admission was >3000 with increased BUN to 48 and creatinine in normal range. IVF was started and her CK and BUN have continued to trend down to normal levels. Today her CK is 193 and her BUN is 8. Qualifiers: Rhabdomyolysis type: traumatic (6) Dehydration Impression: Resolved. On admission she was found to have altered mental status. She lives alone and had indications of significant dehydration with an elevated BUN and urine gravity. She was started on IVF. Her BUN and creatinine are now within normal limits and her IVF was stopped as she is taking in adequate oral hydration.
[2021-04-28] MEDS: SODIUM CHLORIDE FLUSH 0.9% 10 ML SYRINGE IVP SCH ×3 (13:07→23:55)
[2021-04-28] MEDS: CEFPODOXIME PROXETIL 100 MG TABLET PO SCH (20:18)
[2021-04-28] MEDS: diphenhydrAMINE 25 MG CAPSULE PO PRN (21:52)
[2021-04-29 06:03] LABS: BASOPHILS % (AUTO) 0.6 %; EOSINOPHILS # (AUTO) 0.2 10^3/uL (0.0-0.7); EOSINOPHILS % (AUTO) 3.2 %; HCT - HEMATOCRIT 36.8 % (37.0-47.0); LYMPHOCYTES # (AUTO) 1.9 10^3/uL (1.5-3.5); LYMPHOCYTES % (AUTO) 38.9 %; MEAN CORPUSCULAR HEMOGLOBIN 27.8 pg (27.0-31.0); MEAN CORPUSCULAR HGB CONC 32.6 g/dL (32.0-36.0); MEAN CORPUSCULAR VOLUME 85.4 fL (81.0-99.0); MEAN PLATELET VOLUME 8.9 fL (7.9-10.8); MONOCYTES # (AUTO) 0.6 10^3/uL (0.0-1.0); MONOCYTES % (AUTO) 11.6 %; NEUTROPHILS # (AUTO) 2.2 10^3/uL (1.5-6.6); NEUTROPHILS % (AUTO) 45.5 %; PLT - PLATELET COUNT 219 10^3/uL (130-450); RED BLOOD COUNT 4.31 10^6/uL (4.20-5.40); RED CELL DISTRIBUTION WIDTH 13.7 % (12.0-15.0); WHITE BLOOD COUNT 4.8 x10^3/uL (4.8-10.8)
[2021-04-29 06:15] LABS: ALBUMIN 3.4 g/dL (3.2-5.5); ALBUMIN/GLOBULIN RATIO 1.2 (1.0-2.2); BILIRUBIN,TOTAL 0.4 mg/dL (0.2-1.0); CREATININE 0.6 mg/dL (0.4-1.0); POTASSIUM 3.6 mmol/L (3.5-5.0); TOTAL PROTEIN 6.2 g/dL (6.7-8.2)
--- NOTE | 2021-04-29 07:27 | PROVIDER PROGRESS NOTE ---
Subjective - Prog Note Date Prog Note Date: 04/29/21 - Subjective Pt reports feeling: No change Subjective: Reports she slept well overnight and feels "fine" this morning. No complaints, denies nausea, vomiting, chills, constipation. Objective - Vital Signs/Intake & Output Reviewed Vital Signs: Yes Vital Signs: Vital Signs x48h Temp Pulse Resp BP Pulse Ox 04/29/21 05:00 36.6 C 71 16 129/67 95 04/28/21 23:43 36.2 C L 73 16 131/71 H 97 Intake & Output: Intake & Output 04/26/21 04/27/21 04/28/21 04/29/21 23:59 23:59 23:59 23:59 Intake Total 4151.333 2144.999 3022.001 100 Output Total 2325 1500 2150 400 Balance 1826.333 644.999 872.001 -300 - Objective General Appearance: positive: No acute distress, Alert Eyes Bilateral: positive: Normal inspection, PERRL ENT: positive: ENT inspection nml, No signs of dehydration Neck: positive: Nml inspection Respiratory: positive: Chest non-tender, No respiratory distress, Breath sounds nml Cardiovascular: positive: Regular rate & rhythm, No murmur, No gallop Peripheral Pulses: 2+ Radial (R), 2+ Radial (L), 2+ Dorsalis pedis (R), 2+ Dorsalis pedis (L) Abdomen: positive: Non-tender, No organomegaly, Nml bowel sounds, No distention Skin: positive: Color nml, No rash, Warm Extremities: positive: Non-tender, Full ROM, Nml appearance, No pedal edema Neurologic/Psychiatric: positive: Oriented x3, Sensation nml, Mood/affect nml - Lab Results Fish Bones: 04/29/21 05:56 04/29/21 05:56 Other Labs: Lab Results x24hrs 04/29/21 04/29/21 Range/Units 05:56 05:56 WBC 4.8 (4.8-10.8) x10^3/uL RBC 4.31 (4.20-5.40) 10^6/uL Hgb 12.0 (12.0-16.0) g/dL Hct 36.8 L (37.0-47.0) % MCV 85.4 (81.0-99.0) fL MCH 27.8 (27.0-31.0) pg MCHC 32.6 (32.0-36.0) g/dL RDW 13.7 (12.0-15.0) % Plt Count 219 (130-450) 10^3/uL MPV 8.9 (7.9-10.8) fL Neut # (Auto) 2.2 (1.5-6.6) 10^3/uL Lymph # (Auto) 1.9 (1.5-3.5) 10^3/uL [place] # (Auto) 0.6 (0.0-1.0) 10^3/uL Eos # (Auto) 0.2 (0.0-0.7) 10^3/uL Baso # (Auto) 0.0 (0.0-0.1) 10^3/uL Absolute Nucleated RBC 0.00 x10^3/uL Nucleated RBC % 0.0 /100WBC Sodium 138 (135-145) mmol/L Potassium 3.6 (3.5-5.0) mmol/L Chloride 102 (101-111) mmol/L Carbon Dioxide 28 (21-32) mmol/L Anion Gap 8.0 (6-13) BUN 11 (6-20) mg/dL Creatinine 0.6 (0.4-1.0) mg/dL Estimated GFR (MDRD) 99 (>89) Glucose 94 (70-100) mg/dL Calcium 9.0 (8.5-10.3) mg/dL Total Bilirubin 0.4 (0.2-1.0) mg/dL AST 25 (10-42) IU/L ALT 34 (10-60) IU/L Alkaline Phosphatase 39 L (42-121) IU/L Total Creatine Kinase 109 (22-269) IU/L Total Protein 6.2 L (6.7-8.2) g/dL Albumin 3.4 (3.2-5.5) g/dL Globulin 2.8 (2.1-4.2) g/dL Albumin/Globulin Ratio 1.2 (1.0-2.2) ABX Reporting Has patient been on IV antibiotics over the past 48 hours?: Yes Sepsis Event Note (H) - Evaluation Current Stage of Sepsis: Ruled out Assessment/Plan - Problem List (1) UTI (urinary tract infection) Impression: Stable. UA culture on admission positive for E. Coli. Her IV antibiotics were transitioned to oral yesterday and she will complete treatment after her last dose tonight. Her WBC remains normal at 4.8 and she has been afebrile with normal vital signs. Denies dysuria and burning. -Continue Cefpodoxime 100mg po BID, last dose tonight at 2100 Qualifiers: Hematuria presence: without hematuria (2) Fall Impression: Per admission notes she has a history of multiple falls and lives along. She has not fallen while admitted. She ambulated with PT this morning. Will continue with fall precautions and PT evaluation as she was recommended to d/c to a SNF -Social work consult for dispo planning/SNF referral Qualifiers: Encounter type: subsequent encounter Qualified Code(s): W19.XXXD - Unspeci fied fall, subsequent encounter (3) Multiple sclerosis Impression: Stable. Pt has known chronic MS. No dyspnea, satting appropriately on room air. No swallowing difficulties noted by nursing or patient. She should continue to follow up with her Neurologist as an outpatient for continued management. (4) Altered mental status Impression: Resolved. Pt is alert and oriented to person, place, and date and per prior provider notes is back to baseline. Qualifiers: Altered mental status type: unspecified Qualified Code(s): R41.82 - Altered mental status, unspecified
[2021-04-29] MEDS: CHOLECALCIFEROL 25 MCG TABLET PO SCH (08:01)
[2021-04-29] MEDS: CEFPODOXIME PROXETIL 100 MG TABLET PO SCH ×2 (08:01→19:58)
[2021-04-29] MEDS: CITALOPRAM HYDROBROMIDE 20 MG TABLET PO SCH (08:02)
[2021-04-29] MEDS: SACCHAROMYCES BOULARDII 250 MG CAPSULE PO SCH ×2 (08:02→17:30)
[2021-04-29] MEDS: SODIUM CHLORIDE FLUSH 0.9% 10 ML SYRINGE IVP SCH ×2 (08:03→17:30)
[2021-04-29] MEDS: ENOXAPARIN 40 MG/0.4 ML SYRINGE SUBQ SCH (08:03)
[2021-04-29] MEDS: polyethylene glycoL 3350 17 GM PACKET PO SCH (08:05)
[2021-04-30] MEDS: SODIUM CHLORIDE FLUSH 0.9% 10 ML SYRINGE IVP SCH ×4 (00:49→21:36)
[2021-04-30 06:11] LABS: BASOPHILS % (AUTO) 0.8 %; EOSINOPHILS # (AUTO) 0.2 10^3/uL (0.0-0.7); HCT - HEMATOCRIT 38.8 % (37.0-47.0); HGB - HEMOGLOBIN 12.5 g/dL (12.0-16.0); LYMPHOCYTES # (AUTO) 2.1 10^3/uL (1.5-3.5); LYMPHOCYTES % (AUTO) 39.4 %; MEAN CORPUSCULAR HEMOGLOBIN 28.1 pg (27.0-31.0); MEAN CORPUSCULAR HGB CONC 32.2 g/dL (32.0-36.0); MEAN CORPUSCULAR VOLUME 87.2 fL (81.0-99.0); MEAN PLATELET VOLUME 9.1 fL (7.9-10.8); MONOCYTES # (AUTO) 0.7 10^3/uL (0.0-1.0); MONOCYTES % (AUTO) 12.6 %; NEUTROPHILS # (AUTO) 2.3 10^3/uL (1.5-6.6); NEUTROPHILS % (AUTO) 43.2 %; PLT - PLATELET COUNT 230 10^3/uL (130-450); RED BLOOD COUNT 4.45 10^6/uL (4.20-5.40); RED CELL DISTRIBUTION WIDTH 13.6 % (12.0-15.0); WHITE BLOOD COUNT 5.3 x10^3/uL (4.8-10.8)
[2021-04-30 06:25] LABS: ALBUMIN 3.6 g/dL (3.2-5.5); ALBUMIN/GLOBULIN RATIO 1.2 (1.0-2.2); BILIRUBIN,TOTAL 0.6 mg/dL (0.2-1.0); CALCIUM 9.3 mg/dL (8.5-10.3); CREATININE 0.7 mg/dL (0.4-1.0); POTASSIUM 3.8 mmol/L (3.5-5.0); TOTAL PROTEIN 6.5 g/dL (6.7-8.2)
[2021-04-30] MEDS: SACCHAROMYCES BOULARDII 250 MG CAPSULE PO SCH ×2 (08:47→17:46)
[2021-04-30] MEDS: CITALOPRAM HYDROBROMIDE 20 MG TABLET PO SCH (08:48)
[2021-04-30] MEDS: ENOXAPARIN 40 MG/0.4 ML SYRINGE SUBQ SCH (08:48)
[2021-04-30] MEDS: CHOLECALCIFEROL 25 MCG TABLET PO SCH (08:48)
[2021-04-30] MEDS: polyethylene glycoL 3350 17 GM PACKET PO SCH (08:50)
--- NOTE | 2021-04-30 11:14 | PROVIDER PROGRESS NOTE ---
Subjective - Prog Note Date Prog Note Date: 04/30/21 - Subjective Pt reports feeling: No change Subjective: Pt reports she is "fine" this morning but wondering if she can have something to help her sleep at night. Reports she has been having difficulties falling asleep. Denies other complaints, including nausea, vomiting or pain. Objective - Vital Signs/Intake & Output Reviewed Vital Signs: Yes Vital Signs: Vital Signs x48h Temp Pulse Resp BP Pulse Ox 04/30/21 07:21 36.7 C 70 17 139/51 H 95 04/30/21 06:00 36.8 C 68 16 140/56 H 93 Intake & Output: Intake & Output 04/27/21 04/28/21 04/29/21 04/30/21 23:59 23:59 23:59 23:59 Intake Total 2144.999 3022.001 1572 250 Output Total 1500 2150 900 700 Balance 644.999 872.001 672 -450 - Objective General Appearance: positive: No acute distress, Alert Eyes Bilateral: positive: Normal inspection, PERRL, No scleral icterus ENT: positive: ENT inspection nml, No signs of dehydration Neck: positive: Nml inspection Respiratory: positive: Chest non-tender, No respiratory distress, Breath sounds nml Cardiovascular: positive: Regular rate & rhythm, No murmur, No gallop Peripheral Pulses: 2+ Radial (R), 2+ Radial (L), 2+ Dorsalis pedis (R), 2+ Dorsalis pedis (L) Abdomen: positive: Non-tender, No organomegaly, Nml bowel sounds, No distention Back: positive: Nml inspection Skin: positive: Color nml, No rash Extremities: positive: Non-tender, Full ROM, Nml appearance Neurologic/Psychiatric: positive: Oriented x3, Mood/affect nml - Lab Results Fish Bones: 04/30/21 05:56 04/30/21 05:56 Other Labs: Lab Results x24hrs 04/30/21 04/30/21 Range/Units 05:56 05:56 WBC 5.3 (4.8-10.8) x10^3/uL RBC 4.45 (4.20-5.40) 10^6/uL Hgb 12.5 (12.0-16.0) g/dL Hct 38.8 (37.0-47.0) % MCV 87.2 (81.0-99.0) fL MCH 28.1 (27.0-31.0) pg MCHC 32.2 (32.0-36.0) g/dL RDW 13.6 (12.0-15.0) % Plt Count 230 (130-450) 10^3/uL MPV 9.1 (7.9-10.8) fL Neut # (Auto) 2.3 (1.5-6.6) 10^3/uL Lymph # (Auto) 2.1 (1.5-3.5) 10^3/uL [place] # (Auto) 0.7 (0.0-1.0) 10^3/uL Eos # (Auto) 0.2 (0.0-0.7) 10^3/uL Baso # (Auto) 0.0 (0.0-0.1) 10^3/uL Absolute Nucleated RBC 0.00 x10^3/uL Nucleated RBC % 0.0 /100WBC Sodium 138 (135-145) mmol/L Potassium 3.8 (3.5-5.0) mmol/L Chloride 101 (101-111) mmol/L Carbon Dioxide 28 (21-32) mmol/L Anion Gap 9.0 (6-13) BUN 15 (6-20) mg/dL Creatinine 0.7 (0.4-1.0) mg/dL Estimated GFR (MDRD) 83 L (>89) Glucose 94 (70-100) mg/dL Calcium 9.3 (8.5-10.3) mg/dL Total Bilirubin 0.6 (0.2-1.0) mg/dL AST 30 (10-42) IU/L ALT 35 (10-60) IU/L Alkaline Phosphatase 41 L (42-121) IU/L Total Creatine Kinase 67 (22-269) IU/L Total Protein 6.5 L (6.7-8.2) g/dL Albumin 3.6 (3.2-5.5) g/dL Globulin 2.9 (2.1-4.2) g/dL Albumin/Globulin Ratio 1.2 (1.0-2.2) ABX Reporting Has patient been on IV antibiotics over the past 48 hours?: No Sepsis Event Note (H) - Evaluation Current Stage of Sepsis: Ruled out Assessment/Plan - Problem List (1) UTI (urinary tract infection) Impression: Resolved. Completed treatment last night with oral antibiotics for E. Coli growing in her urine. WBC normal. Denies dysuria, fevers, chills. Qualifiers: Hematuria presence: without hematuria (2) Fall Impression: Per admission notes she has a history of multiple falls and lives alone. She has not fallen while admitted. She has been working with PT. Will continue with fall precautions and PT evaluation as she was recommended to d/c to a SNF Qualifiers: Encounter type: subsequent encounter Qualified Code(s): W19.XXXD - Unspecified fall, subsequent encounter (3) Multiple sclerosis Impression: Stable. Pt has known chronic MS. No dyspnea, satting appropriately on room air. No swallowing difficulties noted by nursing or patient. She should continue to follow up with her Neurologist as an outpatient for continued management. (4) Altered mental status Impression: Resolved. Pt is alert and oriented to person, place, and date. She was able to state that the reason she was admitted was due to a fall from a ladder at home, which she was actually seen in the ED for 5 days prior to admission per EMILY Webb's H&P this stay. She does not remember feeling confused but today is alert and oriented and conversing appropriately. I provided a medical update to her brother Sujit per SW request. He reported he was unaware she was admitted to the hospital and under the impression "she was just getting physical therapy a couple of times." He was pleasant on the phone but made mention multiple times that he was "not sure why you're calling, not to sound callous but I'm not involved in her life". Discussed that as her legal next of kin I was updating him on her medical condition but he was not interested in further discussion. Qualifiers: Altered mental status type: unspecified Qualified Code(s): R41.82 - Altered mental status, unspecified
[2021-04-30] MEDS: diphenhydrAMINE 25 MG CAPSULE PO PRN (21:36)
[2021-05-01] MEDS: CITALOPRAM HYDROBROMIDE 20 MG TABLET PO SCH (10:36)
[2021-05-01] MEDS: CHOLECALCIFEROL 25 MCG TABLET PO SCH (10:36)
[2021-05-01] MEDS: SACCHAROMYCES BOULARDII 250 MG CAPSULE PO SCH ×2 (10:36→17:37)
[2021-05-01] MEDS: SODIUM CHLORIDE FLUSH 0.9% 10 ML SYRINGE IVP SCH ×2 (10:37→17:37)
[2021-05-01] MEDS: polyethylene glycoL 3350 17 GM PACKET PO SCH (10:37)
[2021-05-01] MEDS: ENOXAPARIN 40 MG/0.4 ML SYRINGE SUBQ SCH (10:37)
--- NOTE | 2021-05-01 11:38 | PROVIDER PROGRESS NOTE ---
Assessment/Plan - Problem List (1) Altered mental status Qualifiers: Altered mental status type: unspecified Qualified Code(s): R41.82 - Altered mental status, unspecified Assessment/Plan: 05/01 resolved. pt return to her baseline. pt is appropriately answering questions on today. 04/27 mental status is returned to her baseline, she is alert and oriented. 04/26 improved. she is alert and oriented two, herself and location. she report she had a good sleep, no pain. we will continue treatment of dehydration and infection. continue neuro check per Q8H 04/25 improved. continue treated underline dehydration and infection pt is confused at ER. ER provider Spoke with Ms Lam whose contact was on chart, and reported her mental status has some baseline confusion, but today it is not her normal. CT of head reveal no acute process. pt has UTI infection, and dehydration significantly as well, it is likely the cause for her acute confusi on, delirium. neuro check Q4H, treat underline of UTI with antibiotics and IVF, Continue laboratory and vital signs monitor (2) UTI (urinary tract infection) Conclusion/Plan: 05/01 stable, pt finished treatment 04/27 UA culture show positive for Ecoli, and sensitive to All antibiotics Urinalysis Show many bacteria in urine and positive nitrate, ketones with protein, elevated gravity in urine. We will treat her with antibiotics Rocephin, Intravenous IV fluids, Follow-up with urine culture and blood culture (3) Rhabdomyolysis Conclusion/Plan: 05/01 resolved, CK was down to normal arrange 04/27 improved. CK is down to 400, creatinine is at normal arrange, continue gentle IVF, lab monitor 04/26 improved. CK is down to 800 arrange, creatinine is at normal arrange, continue IVF (reduced to 100cc/h) 04/25 improved. CK is down to 1700 from over 3000, continue IVF and lab monitor Patient had unwitnessed fall at ground, unknown how long time she has been the ground, but it seem she had no injury. CK is over 3000, and increased BUN 48, but with normal arrange creatinine. ER already started with IVF, we will continue IVF, continue lab monitor and check CK daily as well. (4) Dehydration Conclusion/Plan: 05/01 resolved. 04/26 improved, BUN is down to normal arrange, IVF at 100cc/h now. 04/25 improved. BUN is down to 31 from 48, continue IVF, and lab and vital monitor pt is confused and live alone, elevated BUN and urine gravity, indicated pt had significant dehydration. IVF, lab monitor and vital monitor. consult with school social worker for disposition planning. It is likely pt need nurse facility to help her, pt can not take care of her self. (5) Hypokalemia Conclusion/Plan: 04/27 resolved, 04/25 K is 3.3, continue replaced, lab monitor potassium is 2.8, replaced with potassium, lab monitor, add tele monitor as well. (6) Fall Conclusion/Plan: 05/01 pt was recommended to SNF by PT/OT, consult with school social worker for disposition planning 04/27 will continue OT cognitive evaluation, and PT evaluation and treatment, pt was recommended to SNF, consult with school social worker for disposition planning. 04/25 PT/OT evaluation and treatment for pt, recommend to SNF, consult with school social worker for d/c planning Patient has a history of multiple falls, she live alone. social work consult for pt, PT/OT evaluation and treatment for patient, nurse for fall precaution. (7) Multiple sclerosis Conclusion/Plan: stable, Patient has a history of multiple sclerosis, chronic. pt has no acute respiratory distress. she had 97% O2 sat on room air. pt may followup with neurologist as out-pt (2) UTI (urinary tract infection) Qualifiers: Hematuria presence: without hematuria (3) Rhabdomyolysis Qualifiers: Rhabdomyolysis type: traumatic (6) Fall Qualifiers: Encounter type: subsequent encounter Qualified Code(s): W19.XXXD - Unspecified fall, subsequent encounter - Current Meds Current Meds: Current Medications Generic Name Dose Route Start Last Admin Trade Name Freq PRN Reason Stop Dose Admin Acetaminophen 650 mg 04/24/21 17:29 04/27/21 17:08 Acetaminophen 325 Mg Tablet PO 650 mg Q4HR PRN Administration Pain 1 to 4 Cholecalciferol 50 mcg 04/26/21 12:00 05/01/21 10:36 Cholecalciferol 25 Mcg Tablet PO 50 mcg DAILY DONNA Administration Citalopram Hydrobromide 40 mg 04/26/21 12:00 05/01/21 10:36 Citalopram Hydrobromide 20 Mg Tablet PO 40 mg DAILY DONNA Administration Diphenhydramine HCl 25 mg 04/28/21 21:25 04/30/21 21:36 Diphenhydramine 25 Mg Capsule PO 25 mg Q4HR PRN Administration Allergy Symptoms Enoxaparin Sodium 40 mg 04/25/21 09:00 05/01/21 10:37 Enoxaparin 40 Mg/0.4 Ml Syringe SUBQ 40 mg DAILY DONNA Administration Multi-Ingredient Ointment 1 applic 04/25/21 16:53 04/26/21 20:45 Zinc Oxide 20% Oint 30 Gm Tube TOP 1 applic PRN PRN Administration Skin Care Polyethylene Glycol 17 gm 04/25/21 10:00 05/01/21 10:37 Polyethylene Glycol 3350 17 Gm Packet PO Not Given DAILY DONNA Saccharomyces Boulardii 250 mg 04/26/21 17:00 05/01/21 10:36 Saccharomyces Boulardii 250 Mg Capsule PO 250 mg BIDWM DONNA Administration Sodium Chloride 10 ml 04/25/21 01:00 05/01/21 10:37 Sodium Chloride Flush 0.9% 10 Ml Syringe IVP 10 ml 0100,0900,1700 DONNA Administration - Lab Result Fish Bone Diagrams: 04/30/21 05:56 04/30/21 05:56 Subjective - Subjective Patient Reports: Feeling Better, Resting Comfortably Objective Vital Signs: Vital Signs - 24 hr 04/30/21 04/30/21 04/30/21 12:21 16:39 20:12 Temperature 36.7 C 36.5 C 36.5 C Heart Rate [ 73 Brachial] Heart Rate [ 93 84 Monitoring electrodes] Respiratory 18 18 16 Rate Blood Pressure 137/69 H 106/90 H 125/68 [Right Brachial artery] O2 Saturation 95 95 95 05/01/21 05/01/21 05/01/21 00:42 05:17 08:17 Temperature 36.5 C 36.6 C 36.9 C Heart Rate [ 75 85 Brachial] Heart Rate [ 80 Monitoring electrodes] Respiratory 20 18 18 Rate Blood Pressure 120/29 L 116/82 H 124/63 [Right Brachial artery] O2 Saturation 92 94 94 Oxygen O2 Source Room air I&O (Last 24 Hrs): Intake and Output Totals x24h 04/29/21 04/30/21 05/01/21 23:59 23:59 23:59 Intake Total 1572 840 240 Output Total 900 1175 Balance 672 -335 240 General: Alert, Cooperative, No acute distress HEENT: Atraumatic, PERRLA Neck: Supple Lymphatic: no adenopathy Neuro: Alert, Non Focal, Oriented Times 3 Cardiovascular: Regular rate, Normal S1, Normal S2 Respiratory: Chest non-tender, No respiratory distress Abdomen: Normal bowel sounds, Soft Extremities: Normal pulses - Results Results: Laboratory Results WBC 5.3 x10^3/uL (4.8-10.8) 04/30/21 05:56 RBC 4.45 10^6/uL (4.20-5.40) 04/30/21 05:56 Hgb 12.5 g/dL (12.0-16.0) 04/30/21 05:56 Hct 38.8 % (37.0-47.0) 04/30/21 05:56 MCV 87.2 fL (81.0-99.0) 04/30/21 05:56 MCH 28.1 pg (27.0-31.0) 04/30/21 05:56 MCHC 32.2 g/dL (32.0-36.0) 04/30/21 05:56 RDW 13.6 % (12.0-15.0) 04/30/21 05:56 Plt Count 230 10^3/uL (130-450) 04/30/21 05:56 MPV 9.1 fL (7.9-10.8) 04/30/21 05:56 Neut # (Auto) 2.3 10^3/uL (1.5-6.6) 04/30/21 05:56 Lymph # (Auto) 2.1 10^3/uL (1.5-3.5) 04/30/21 05:56 [place] # (Auto) 0.7 10^3/uL (0.0-1.0) 04/30/21 05:56 Eos # (Auto) 0.2 10^3/uL (0.0-0.7) 04/30/21 05:56 Baso # (Auto) 0.0 10^3/uL (0.0-0.1) 04/30/21 05:56 Absolute Nucleated RBC 0.00 x10^3/uL 04/30/21 05:56 Nucleated RBC % 0.0 /100WBC 04/30/21 05:56 PT 14.2 secs (9.9-12.6) H 04/24/21 16:35 INR 1.3 (0.8-1.2) H 04/24/21 16:35 VBG pH 7.397 (7.31-7.41) 04/24/21 16:35 VBG pCO2 45.1 mmHg (41-51) 04/24/21 16:35 VBG pO2 29.3 mmHg (25-47) 04/24/21 16:35 VBG HCO3 27.1 mmol/L (23-28) 04/24/21 16:35 VBG Total CO2 28.5 mmol/L (24-29) 04/24/21 16:35 VBG O2 Saturation 56.8 % (60-80) L 04/24/21 16:35 VBG Base Excess 1.8 mmol/L (-2 - +2) 04/24/21 16:35 Sodium 138 mmol/L (135-145) 04/30/21 05:56 Potassium 3.8 mmol/L (3.5-5.0) 04/30/21 05:56 Chloride 101 mmol/L (101-111) 04/30/21 05:56 Carbon Dioxide 28 mmol/L (21-32) 04/30/21 05:56 Anion Gap 9.0 (6-13) 04/30/21 05:56 BUN 15 mg/dL (6-20) 04/30/21 05:56 Creatinine 0.7 mg/dL (0.4-1.0) 04/30/21 05:56 Estimated GFR (MDRD) 83 (>89) L 04/30/21 05:56 Glucose 94 mg/dL (70-100) 04/30/21 05:56 Lactic Acid 2.0 mmol/L (0.5-2.2) 04/24/21 16:35 Calcium 9.3 mg/dL (8.5-10.3) 04/30/21 05:56 Phosphorus 2.8 mg/dL (2.5-4.6) 04/27/21 05:55 Magnesium 2.0 mg/dL (1.7-2.8) 04/24/21 16:35 Total Bilirubin 0.6 mg/dL (0.2-1.0) 04/30/21 05:56 AST 30 IU/L (10-42) 04/30/21 05:56 ALT 35 IU/L (10-60) 04/30/21 05:56 Alkaline Phosphatase 41 IU/L (42-121) L 04/30/21 05:56 Total Creatine Kinase 67 IU/L (22-269) 04/30/21 05:56 Total Protein 6.5 g/dL (6.7-8.2) L 04/30/21 05:56 Albumin 3.6 g/dL (3.2-5.5) 04/30/21 05:56 Globulin 2.9 g/dL (2.1-4.2) 04/30/21 05:56 Albumin/Globulin Ratio 1.2 (1.0-2.2) 04/30/21 05:56 TSH 1.13 uIU/mL (0.34-5.60) 04/24/21 16:35 Urine Color DARK YELLOW 04/24/21 17:03 Urine Clarity HAZY (CLEAR) 04/24/21 17:03 Urine pH 6.0 PH (5.0-7.5) 04/24/21 17:03 Ur Specific [place] >=1.030 (1.002-1.030) H 04/24/21 17:03 Urine Protein 30 mg/dL (NEGATIVE) H 04/24/21 17:03 Urine Glucose (UA) NEGATIVE mg/dL (NEGATIVE) 04/24/21 17:03 Urine Ketones 15 mg/dL (NEGATIVE) H 04/24/21 17:03 Urine Occult Blood MODERATE (NEGATIVE) H 04/24/21 17:03 Urine Nitrite POSITIVE (NEGATIVE) H 04/24/21 17:03 Urine Bilirubin NEGATIVE (NEGATIVE) 04/24/21 17:03 Urine Urobilinogen 0.2 (NORMAL) E.U./dL (NORMAL) 04/24/21 17:03 Ur Leukocyte Esterase NEGATIVE (NEGATIVE) 04/24/21 17:03 Urine RBC 0-5 /HPF (0-5) 04/24/21 17:03 Urine WBC 4-5 /HPF (0-5) 04/24/21 17:03 Ur Squamous Epith Cells NONE SEEN (<= Few) 04/24/21 17:03 Urine Bacteria Many /HPF (None Seen) H 04/24/21 17:03 Ur Microscopic Review INDICATED 04/24/21 17:03 Urine Culture Comments INDICATED 04/24/21 17:03 Nasal Adenovirus (PCR) NOT DETECTED 04/24/21 16:40 Nasal B. parapertussis DNA (PCR) NOT DETECTED 04/24/21 16:40 Nasal Coronavir 229E PCR NOT DETECTED 04/24/21 16:40 Nasal Coronavir HKU1 PCR NOT DETECTED 04/24/21 16:40 Nasal Coronavir NL63 PCR NOT DETECTED 04/24/21 16:40 Nasal Coronavir OC43 PCR NOT DETECTED 04/24/21 16:40 Nasal Enterovir/Rhinovir PCR NOT DETECTED 04/24/21 16:40 Nasal Influenza B PCR NOT DETECTED 04/24/21 16:40 Nasal Influenza A PCR NOT DETECTED 04/24/21 16:40 Nasal Parainfluen 1 PCR NOT DETECTED 04/24/21 16:40 Nasal Parainfluen 2 PCR NOT DETECTED 04/24/21 16:40 Nasal Parainfluen 3 PCR NOT DETECTED 04/24/21 16:40 Nasal Parainfluen 4 PCR NOT DETECTED 04/24/21 16:40 Nasal RSV (PCR) NOT DETECTED 04/24/21 16:40 Nasal B.pertussis DNA PCR NOT DETECTED 04/24/21 16:40 Nasal C.pneumoniae (PCR) NOT DETECTED 04/24/21 16:40 [place] Human Metapneumo PCR NOT DETECTED 04/24/21 16:40 Nasal M.pneumoniae (PCR) NOT DETECTED 04/24/21 16:40 Nasal SARS-CoV-2 (PCR) NOT DETECTED 04/24/21 16:40 Salicylates < 6.0 mg/dL 04/24/21 16:35 Urine Opiates Screen NEGATIVE (NEGATIVE) 04/24/21 17:03 Ur Oxycodone Screen NEGATIVE (NEGATIVE) 04/24/21 17:03 Urine Methadone Screen NEGATIVE (NEGATIVE) 04/24/21 17:03 Ur Propoxyphene Screen NEGATIVE (NEGATIVE) 04/24/21 17:03 Acetaminophen < 10 ug/mL (10-30) L 04/24/21 16:35 Ur Barbiturates Screen NEGATIVE (NEGATIVE) 04/24/21 17:03 Ur Tricyclics Screen NEGATIVE (NEGATIVE) 04/24/21 17:03 Ur Phencyclidine Scrn NEGATIVE (NEGATIVE) 04/24/21 17:03 Ur Amphetamine Screen NEGATIVE (NEGATIVE) 04/24/21 17:03 U Methamphetamines Scrn NEGATIVE (NEGATIVE) 04/24/21 17:03 U Benzodiazepines Scrn NEGATIVE (NEGATIVE) 04/24/21 17:03 Urine Cocaine Screen NEGATIVE (NEGATIVE) 04/24/21 17:03 U Cannabinoids Screen NEGATIVE (NEGATIVE) 04/24/21 17:03 Ethyl Alcohol < 5.0 mg/dL 04/24/21 16:35 Sepsis Event Note (H) - Evaluation Current Stage of Sepsis: Ruled out ABX Reporting Has patient been on IV antibiotics over the past 48 hours?: No Current Medications - Current Medications Current Medications: Active Medications Acetaminophen (Acetaminophen 325 Mg Tablet) 650 mg PO Q4HR PRN PRN Reason: Pain 1 to 4 Last Admin: 04/27/21 17:08 Dose: 650 mg Documented by: Cholecalciferol (Cholecalciferol 25 Mcg Tablet) 50 mcg PO DAILY [facility] Last Admin: 05/01/21 10:36 Dose: 50 mcg Documented by: Citalopram Hydrobromide (Citalopram Hydrobromide 20 Mg Tablet) 40 mg PO DAILY [facility] Last Admin: 05/01/21 10:36 Dose: 40 mg Documented by: Diphenhydramine HCl (Diphenhydramine 25 Mg Capsule) 25 mg PO Q4HR PRN PRN Reason: Allergy Symptoms Last Admin: 04/30/21 21:36 Dose: 25 mg Documented by: Enoxaparin Sodium (Enoxaparin 40 Mg/0.4 Ml Syringe) 40 mg SUBQ DAILY [facility] Last Admin: 05/01/21 10:37 Dose: 40 mg Documented by: Multi-Ingredient Ointment (Zinc Oxide 20% Oint 30 Gm Tube) 1 applic TOP PRN PRN PRN Reason: Skin Care Last Admin: 04/26/21 20:45 Dose: 1 applic Documented by: Ondansetron HCl (Ondansetron 4 Mg/2 Ml Vial) 4 mg IVP Q6HR PRN PRN Reason: Nausea / Vomiting Polyethylene Glycol (Polyethylene Glycol 3350 17 Gm Packet) 17 gm PO DAILY [facility] Last Admin: 05/01/21 10:37 Dose: Not Given Documented by: Saccharomyces Boulardii (Saccharomyces Boulardii 250 Mg Capsule) 250 mg PO BIDWM [facility] Last Admin: 05/01/21 10:36 Dose: 250 mg Documented by: Sodium Chloride (Sodium Chloride Flush 0.9% 10 Ml Syringe) 10 ml IVP PRN PRN PRN Reason: NEEDED PER PROVIDER ORDERS Sodium Chloride (Sodium Chloride Flush 0.9% 10 Ml Syringe) 10 ml IVP 0100,0900,1700 DONNA Last Admin: 05/01/21 10:37 Dose: 10 ml Documented by: Cholecalciferol (Vitamin D3) [Vitamin D3] 50 mcg PO DAILY 04/25/21 Citalopram Hydrobromide [Citalopram HBr] 40 mg PO DAILY 04/25/21
[2021-05-02] MEDS: diphenhydrAMINE 25 MG CAPSULE PO PRN (00:23)
[2021-05-02] MEDS: SODIUM CHLORIDE FLUSH 0.9% 10 ML SYRINGE IVP SCH ×3 (00:24→17:18)
[2021-05-02] MEDS: SACCHAROMYCES BOULARDII 250 MG CAPSULE PO SCH ×2 (10:12→17:17)
[2021-05-02] MEDS: CITALOPRAM HYDROBROMIDE 20 MG TABLET PO SCH (10:13)
[2021-05-02] MEDS: CHOLECALCIFEROL 25 MCG TABLET PO SCH (10:13)
[2021-05-02] MEDS: ENOXAPARIN 40 MG/0.4 ML SYRINGE SUBQ SCH (10:14)
[2021-05-02] MEDS: polyethylene glycoL 3350 17 GM PACKET PO SCH (10:14)
--- NOTE | 2021-05-02 11:49 | PROVIDER PROGRESS NOTE ---
Assessment/Plan - Problem List (1) Altered mental status Qualifiers: Altered mental status type: unspecified Qualified Code(s): R41.82 - Altered mental status, unspecified Assessment/Plan: 05/02 stable and resolved. pt is appropriately answering questions, consult with social and political studies professor for Disposition planning. 05/01 resolved. pt return to her baseline. pt is appropriately answering questions on today. 04/27 mental status is returned to her baseline, she is alert and oriented. 04/26 improved. she is alert and oriented two, herself and location. she report she had a good sleep, no pain. we will continue treatment of dehydration and infection. continue neuro check per Q8H 04/25 improved. continue treated underline dehydration and infection pt is confused at ER. ER provider Spoke with Ms Lam whose contact was on chart, and reported her mental status has some baseline confusion, but today it is not her normal. CT of head reveal no acute process. pt has UTI infection, and dehydration significantly as well, it is likely the cause for her acute confusion, delirium. neuro check Q4H, treat underline of UTI with antibiotics and IVF, Continue laboratory and vital signs monitor (2) UTI (urinary tract infection) Conclusion/Plan: 05/01 stable, pt finished treatment 04/27 UA culture show positive for Ecoli, and sensitive to All antibiotics Urinalysis Show many bacteria in urine and positive nitrate, ketones with protein, elevated gravity in urine. We will treat her with antibiotics Rocephin, Intravenous IV fluids, Follow-up with urine culture and blood culture (3) Rhabdomyolysis Conclusion/Plan: 05/01 resolved, CK was down to normal arrange 04/27 improved. CK is down to 400, creatinine is at normal arrange, continue gentle IVF, lab monitor 04/26 improved. CK is down to 800 arrange, creatinine is at normal arrange, continue IVF (reduced to 100cc/h) 04/25 improved. CK is down to 1700 from over 3000, continue IVF and lab monitor Patient had unwitnessed fall at ground, unknown how long time she has been the ground, but it seem she had no injury. CK is over 3000, and increased BUN 48, but with normal arrange creatinine. ER already started with IVF, we will continue IVF, continue lab monitor and check CK daily as well. (4) Dehydration Conclusion/Plan: 05/01 resolved. 04/26 improved, BUN is down to normal arrange, IVF at 100cc/h now. 04/25 improved. BUN is down to 31 from 48, continue IVF, and lab and vital monitor pt is confused and live alone, elevated BUN and urine gravity, indicated pt had significant dehydration. IVF, lab monitor and vital monitor. consult with social and political studies professor for disposition planning. It is likely pt need nurse facility to help her, pt can not take care of her self. (5) Hypokalemia Conclusion/Plan: 04/27 resolved, 04/25 K is 3.3, continue replaced, lab monitor potassium is 2.8, replaced with potassium, lab monitor, add tele monitor as well. (6) Fall Conclusion/Plan: 05/01 pt was recommended to SNF by PT/OT, consult with social and political studies professor for disposition planning 04/27 will continue OT cognitive evaluation, and PT evaluation and treatment, pt was recommended to SNF, consult with social and political studies professor for disposition planning. 04/25 PT/OT evaluation and treatment for pt, recommend to SNF, consult with social and political studies professor for d/c planning Patient has a history of multiple falls, she live alone. social work consult for pt, PT/OT evaluation and treatment for patient, nurse for fall precaution. (7) Multiple sclerosis Conclusion/Plan: stable, Patient has a history of multiple sclerosis, chronic. pt has no acute respiratory distress. she had 97% O2 sat on room air. pt may followup with neurologist as out-pt (2) UTI (urinary tract infection) Qualifiers: Hematuria presence: without hematuria (3) Rhabdomyolysis Qualifiers: Rhabdomyolysis type: traumatic (6) Fall Qualifiers: Encounter type: subsequent encounter Qualified Code(s): W19.XXXD - Unspecified fall, subsequent encounter - Current Meds Current Meds: Current Medications Generic Name Dose Route Start Last Admin Trade Name Freq PRN Reason Stop Dose Admin Acetaminophen 650 mg 04/24/21 17:29 04/27/21 17:08 Acetaminophen 325 Mg Tablet PO 650 mg Q4HR PRN Administration Pain 1 to 4 Cholecalciferol 50 mcg 04/26/21 12:00 05/02/21 10:13 Cholecalciferol 25 Mcg Tablet PO 50 mcg DAILY DONNA Administration Citalopram Hydrobromide 40 mg 04/26/21 12:00 05/02/21 10:13 Citalopram Hydrobromide 20 Mg Tablet PO 40 mg DAILY DONNA Administration Diphenhydramine HCl 25 mg 04/28/21 21:25 05/02/21 00:23 Diphenhydramine 25 Mg Capsule PO 25 mg Q4HR PRN Administration Allergy Symptoms Enoxaparin Sodium 40 mg 04/25/21 09:00 05/02/21 10:14 Enoxaparin 40 Mg/0.4 Ml Syringe SUBQ 40 mg DAILY DONNA Administration Multi-Ingredient Ointment 1 applic 04/25/21 16:53 04/26/21 20:45 Zinc Oxide 20% Oint 30 Gm Tube TOP 1 applic PRN PRN Administration Skin Care Polyethylene Glycol 17 gm 04/25/21 10:00 05/02/21 10:14 Polyethylene Glycol 3350 17 Gm Packet PO Not Given DAILY DONNA Saccharomyces Boulardii 250 mg 04/26/21 17:00 05/02/21 10:12 Saccharomyces Boulardii 250 Mg Capsule PO 250 mg BIDWM DONNA Administration Sodium Chloride 10 ml 04/25/21 01:00 05/02/21 10:14 Sodium Chloride Flush 0.9% 10 Ml Syringe IVP 10 ml 0100,0900,1700 DONNA Administration - Lab Result Fish Bone Diagrams: 04/30/21 05:56 04/30/21 05:56 Subjective - Subjective Patient Reports: Resting Comfortably, No Complaints Objective Vital Signs: Vital Signs - 24 hr 05/01/21 05/01/21 05/01/21 12:04 16:53 21:00 Temperature 36.6 C 36.6 C 36.4 C L Heart Rate [ 92 80 80 Brachial] Respiratory 18 16 20 Rate Blood Pressure 126/72 120/70 110/63 [Right Brachial artery] O2 Saturation 94 96 96 05/01/21 05/02/21 05/02/21 23:36 04:08 08:35 Temperature 36.7 C 36.4 C L 36.7 C Heart Rate [ 88 81 81 Brachial] Respiratory 18 16 20 Rate Blood Pressure 114/55 L 110/61 119/65 [Right Brachial artery] O2 Saturation 95 97 95 Oxygen O2 Source Room air I&O (Last 24 Hrs): Intake and Output Totals x24h 04/30/21 05/01/21 05/02/21 23:59 23:59 23:59 Intake Total 840 900 195 Output Total 1175 Balance -335 900 195 General: Alert, Cooperative, No acute distress HEENT: Atraumatic Neck: Supple Lymphatic: no adenopathy Neuro: Alert, Non Focal, Oriented Times 3 Cardiovascular: Regular rate, Normal S1, Normal S2 Respiratory: Chest non-tender, No respiratory distress Abdomen: Normal bowel sounds, Soft, No tenderness Extremities: Normal pulses - Results Results: Laboratory Results WBC 5.3 x10^3/uL (4.8-10.8) 04/30/21 05:56 RBC 4.45 10^6/uL (4.20-5.40) 04/30/21 05:56 Hgb 12.5 g/dL (12.0-16.0) 04/30/21 05:56 Hct 38.8 % (37.0-47.0) 04/30/21 05:56 MCV 87.2 fL (81.0-99.0) 04/30/21 05:56 MCH 28.1 pg (27.0-31.0) 04/30/21 05:56 MCHC 32.2 g/dL (32.0-36.0) 04/30/21 05:56 RDW 13.6 % (12.0-15.0) 04/30/21 05:56 Plt Count 230 10^3/uL (130-450) 04/30/21 05:56 MPV 9.1 fL (7.9-10.8) 04/30/21 05:56 Neut # (Auto) 2.3 10^3/uL (1.5-6.6) 04/30/21 05:56 Lymph # (Auto) 2.1 10^3/uL (1.5-3.5) 04/30/21 05:56 [place] # (Auto) 0.7 10^3/uL (0.0-1.0) 04/30/21 05:56 Eos # (Auto) 0.2 10^3/uL (0.0-0.7) 04/30/21 05:56 Baso # (Auto) 0.0 10^3/uL (0.0-0.1) 04/30/21 05:56 Absolute Nucleated RBC 0.00 x10^3/uL 04/30/21 05:56 Nucleated RBC % 0.0 /100WBC 04/30/21 05:56 PT 14.2 secs (9.9-12.6) H 04/24/21 16:35 INR 1.3 (0.8-1.2) H 04/24/21 16:35 VBG pH 7.397 (7.31-7.41) 04/24/21 16:35 VBG pCO2 45.1 mmHg (41-51) 04/24/21 16:35 VBG pO2 29.3 mmHg (25-47) 04/24/21 16:35 VBG HCO3 27.1 mmol/L (23-28) 04/24/21 16:35 VBG Total CO2 28.5 mmol/L (24-29) 04/24/21 16:35 VBG O2 Saturation 56.8 % (60-80) L 04/24/21 16:35 VBG Base Excess 1.8 mmol/L (-2 - +2) 04/24/21 16:35 Sodium 138 mmol/L (135-145) 04/30/21 05:56 Potassium 3.8 mmol/L (3.5-5.0) 04/30/21 05:56 Chloride 101 mmol/L (101-111) 04/30/21 05:56 Carbon Dioxide 28 mmol/L (21-32) 04/30/21 05:56 Anion Gap 9.0 (6-13) 04/30/21 05:56 BUN 15 mg/dL (6-20) 04/30/21 05:56 Creatinine 0.7 mg/dL (0.4-1.0) 04/30/21 05:56 Estimated GFR (MDRD) 83 (>89) L 04/30/21 05:56 Glucose 94 mg/dL (70-100) 04/30/21 05:56 Lactic Acid 2.0 mmol/L (0.5-2.2) 04/24/21 16:35 Calcium 9.3 mg/dL (8.5-10.3) 04/30/21 05:56 Phosphorus 2.8 mg/dL (2.5-4.6) 04/27/21 05:55 Magnesium 2.0 mg/dL (1.7-2.8) 04/24/21 16:35 Total Bilirubin 0.6 mg/dL (0.2-1.0) 04/30/21 05:56 AST 30 IU/L (10-42) 04/30/21 05:56 ALT 35 IU/L (10-60) 04/30/21 05:56 Alkaline Phosphatase 41 IU/L (42-121) L 04/30/21 05:56 Total Creatine Kinase 67 IU/L (22-269) 04/30/21 05:56 Total Protein 6.5 g/dL (6.7-8.2) L 04/30/21 05:56 Albumin 3.6 g/dL (3.2-5.5) 04/30/21 05:56 Globulin 2.9 g/dL (2.1-4.2) 04/30/21 05:56 Albumin/Globulin Ratio 1.2 (1.0-2.2) 04/30/21 05:56 TSH 1.13 uIU/mL (0.34-5.60) 04/24/21 16:35 Urine Color DARK YELLOW 04/24/21 17:03 Urine Clarity HAZY (CLEAR) 04/24/21 17:03 Urine pH 6.0 PH (5.0-7.5) 04/24/21 17:03 Ur Specific [place] >=1.030 (1.002-1.030) H 04/24/21 17:03 Urine Protein 30 mg/dL (NEGATIVE) H 04/24/21 17:03 Urine Glucose (UA) NEGATIVE mg/dL (NEGATIVE) 04/24/21 17:03 Urine Ketones 15 mg/dL (NEGATIVE) H 04/24/21 17:03 Urine Occult Blood MODERATE (NEGATIVE) H 04/24/21 17:03 Urine Nitrite POSITIVE (NEGATIVE) H 04/24/21 17:03 Urine Bilirubin NEGATIVE (NEGATIVE) 04/24/21 17:03 Urine Urobilinogen 0.2 (NORMAL) E.U./dL (NORMAL) 04/24/21 17:03 Ur Leukocyte Esterase NEGATIVE (NEGATIVE) 04/24/21 17:03 Urine RBC 0-5 /HPF (0-5) 04/24/21 17:03 Urine WBC 4-5 /HPF (0-5) 04/24/21 17:03 Ur Squamous Epith Cells NONE SEEN (<= Few) 04/24/21 17:03 Urine Bacteria Many /HPF (None Seen) H 04/24/21 17:03 Ur Microscopic Review INDICATED 04/24/21 17:03 Urine Culture Comments INDICATED 04/24/21 17:03 Nasal Adenovirus (PCR) NOT DETECTED 04/24/21 16:40 Nasal B. parapertussis DNA (PCR) NOT DETECTED 04/24/21 16:40 Nasal Coronavir 229E PCR NOT DETECTED 04/24/21 16:40 Nasal Coronavir HKU1 PCR NOT DETECTED 04/24/21 16:40 Nasal Coronavir NL63 PCR NOT DETECTED 04/24/21 16:40 Nasal Coronavir OC43 PCR NOT DETECTED 04/24/21 16:40 Nasal Enterovir/Rhinovir PCR NOT DETECTED 04/24/21 16:40 Nasal Influenza B PCR NOT DETECTED 04/24/21 16:40 Nasal Influenza A PCR NOT DETECTED 04/24/21 16:40 Nasal Parainfluen 1 PCR NOT DETECTED 04/24/21 16:40 Nasal Parainfluen 2 PCR NOT DETECTED 04/24/21 16:40 Nasal Parainfluen 3 PCR NOT DETECTED 04/24/21 16:40 Nasal Parainfluen 4 PCR NOT DETECTED 04/24/21 16:40 Nasal RSV (PCR) NOT DETECTED 04/24/21 16:40 Nasal B.pertussis DNA PCR NOT DETECTED 04/24/21 16:40 Nasal C.pneumoniae (PCR) NOT DETECTED 04/24/21 16:40 [place] Human Metapneumo PCR NOT DETECTED 04/24/21 16:40 Nasal M.pneumoniae (PCR) NOT DETECTED 04/24/21 16:40 Nasal SARS-CoV-2 (PCR) NOT DETECTED 04/24/21 16:40 Salicylates < 6.0 mg/dL 04/24/21 16:35 Urine Opiates Screen NEGATIVE (NEGATIVE) 04/24/21 17:03 Ur Oxycodone Screen NEGATIVE (NEGATIVE) 04/24/21 17:03 Urine Methadone Screen NEGATIVE (NEGATIVE) 04/24/21 17:03 Ur Propoxyphene Screen NEGATIVE (NEGATIVE) 04/24/21 17:03 Acetaminophen < 10 ug/mL (10-30) L 04/24/21 16:35 Ur Barbiturates Screen NEGATIVE (NEGATIVE) 04/24/21 17:03 Ur Tricyclics Screen NEGATIVE (NEGATIVE) 04/24/21 17:03 Ur Phencyclidine Scrn NEGATIVE (NEGATIVE) 04/24/21 17:03 Ur Amphetamine Screen NEGATIVE (NEGATIVE) 04/24/21 17:03 U Methamphetamines Scrn NEGATIVE (NEGATIVE) 04/24/21 17:03 U Benzodiazepines Scrn NEGATIVE (NEGATIVE) 04/24/21 17:03 Urine Cocaine Screen NEGATIVE (NEGATIVE) 04/24/21 17:03 U Cannabinoids Screen NEGATIVE (NEGATIVE) 04/24/21 17:03 Ethyl Alcohol < 5.0 mg/dL 04/24/21 16:35 Sepsis Event Note (H) - Evaluation Current Stage of Sepsis: Ruled out ABX Reporting Has patient been on IV antibiotics over the past 48 hours?: No Current Medications - Current Medications Current Medications: Active Medications Acetaminophen (Acetaminophen 325 Mg Tablet) 650 mg PO Q4HR PRN PRN Reason: Pain 1 to 4 Last Admin: 04/27/21 17:08 Dose: 650 mg Documented by: Cholecalciferol (Cholecalciferol 25 Mcg Tablet) 50 mcg PO DAILY [facility] Last Admin: 05/02/21 10:13 Dose: 50 mcg Documented by: Citalopram Hydrobromide (Citalopram Hydrobromide 20 Mg Tablet) 40 mg PO DAILY [facility] [place] Last Admin: 05/02/21 10:13 Dose: 40 mg Documented by: Diphenhydramine HCl (Diphenhydramine 25 Mg Capsule) 25 mg PO Q4HR PRN PRN Reason: Allergy Symptoms Last Admin: 05/02/21 00:23 Dose: 25 mg Documented by: Enoxaparin Sodium (Enoxaparin 40 Mg/0.4 Ml Syringe) 40 mg SUBQ DAILY [facility] [place] Last Admin: 05/02/21 10:14 Dose: 40 mg Documented by: Multi-Ingredient Ointment (Zinc Oxide 20% Oint 30 Gm Tube) 1 applic TOP PRN PRN PRN Reason: Skin Care Last Admin: 04/26/21 20:45 Dose: 1 applic Documented by: Ondansetron HCl (Ondansetron 4 Mg/2 Ml Vial) 4 mg IVP Q6HR PRN PRN Reason: Nausea / Vomiting Polyethylene Glycol (Polyethylene Glycol 3350 17 Gm Packet) 17 gm PO DAILY [facility] [place] Last Admin: 05/02/21 10:14 Dose: Not Given Documented by: Saccharomyces Boulardii (Saccharomyces Boulardii 250 Mg Capsule) 250 mg PO BIDWM [facility] [place] Last Admin: 05/02/21 10:12 Dose: 250 mg Documented by: Sodium Chloride (Sodium Chloride Flush 0.9% 10 Ml Syringe) 10 ml IVP PRN PRN PRN Reason: NEEDED PER PROVIDER ORDERS Sodium Chloride (Sodium Chloride Flush 0.9% 10 Ml Syringe) 10 ml IVP 0100,0900,1700 DONNA Last Admin: 05/02/21 10:14 Dose: 10 ml Documented by: Cholecalciferol (Vitamin D3) [Vitamin D3] 50 mcg PO DAILY 04/25/21 Citalopram Hydrobromide [Citalopram HBr] 40 mg PO DAILY 04/25/21
[2021-05-02] MEDS: ACETAMINOPHEN 325 MG TABLET PO PRN (14:47)
[2021-05-03] MEDS: SODIUM CHLORIDE FLUSH 0.9% 10 ML SYRINGE IVP SCH ×3 (00:31→17:24)
[2021-05-03] MEDS: diphenhydrAMINE 25 MG CAPSULE PO PRN (02:20)
[2021-05-03] MEDS: CITALOPRAM HYDROBROMIDE 20 MG TABLET PO SCH (08:49)
[2021-05-03] MEDS: ENOXAPARIN 40 MG/0.4 ML SYRINGE SUBQ SCH (08:49)
[2021-05-03] MEDS: polyethylene glycoL 3350 17 GM PACKET PO SCH (08:50)
[2021-05-03] MEDS: CHOLECALCIFEROL 25 MCG TABLET PO SCH (08:50)
[2021-05-03] MEDS: SACCHAROMYCES BOULARDII 250 MG CAPSULE PO SCH ×2 (08:50→17:24)
--- NOTE | 2021-05-03 10:32 | PROVIDER PROGRESS NOTE ---
Assessment/Plan - Problem List (1) Altered mental status Qualifiers: Altered mental status type: unspecified Qualified Code(s): R41.82 - Altered mental status, unspecified Assessment/Plan: 05/03 resolved, pt is pending for replacement to SNF. Patient is hemodynamically stable 05/02 stable and resolved. pt is appropriately answering questions, consult with social sciences lecturer for Disposition planning. 05/01 resolved. pt return to her baseline. pt is appropriately answering questions on today. 04/27 mental status is returned to her baseline, she is alert and oriented. 04/26 improved. she is alert and oriented two, herself and location. she report she had a good sleep, no pain. we will continue treatment of dehydration and infection. continue neuro check per Q8H 04/25 improved. continue treated underline dehydration and infection pt is confused at ER. ER provider Spoke with Ms Lam whose contact was on chart, and reported her mental status has some baseline confusion, but today it is not her normal. CT of head reveal no acute process. pt has UTI infection, and dehydration significantly as well, it is likely the cause for her acute confusion, delirium. neuro check Q4H, treat underline of UTI with antibiotics and IVF, Continue laboratory and vital signs monitor (2) UTI (urinary tract infection) Conclusion/Plan: 05/01 stable, pt finished treatment 04/27 UA culture show positive for Ecoli, and sensitive to All antibiotics Urinalysis Show many bacteria in urine and positive nitrate, ketones with protein, elevated gravity in urine. We will treat her with antibiotics Rocephin, Intravenous IV fluids, Follow-up with urine culture and blood culture (3) Rhabdomyolysis Conclusion/Plan: 05/01 resolved, CK was down to normal arrange 04/27 improved. CK is down to 400, creatinine is at normal arrange, continue gentle IVF, lab monitor 04/26 improved. CK is down to 800 arrange, creatinine is at normal arrange, continue IVF (reduced to 100cc/h) 04/25 improved. CK is down to 1700 from over 3000, continue IVF and lab monitor Patient had unwitnessed fall at ground, unknown how long time she has been the ground, but it seem she had no injury. CK is over 3000, and increased BUN 48, but with normal arrange creatinine. ER already started with IVF, we will continue IVF, continue lab monitor and check CK daily as well. (4) Dehydration Conclusion/Plan: 05/01 resolved. 04/26 improved, BUN is down to normal arrange, IVF at 100cc/h now. 04/25 improved. BUN is down to 31 from 48, continue IVF, and lab and vital monitor pt is confused and live alone, elevated BUN and urine gravity, indicated pt had significant dehydration. IVF, lab monitor and vital monitor. consult with social sciences lecturer for disposition planning. It is likely pt need nurse facility to help her, pt can not take care of her self. (5) Hypokalemia Conclusion/Plan: 04/27 resolved, 04/25 K is 3.3, continue replaced, lab monitor potassium is 2.8, replaced with potassium, lab monitor, add tele monitor as well. (6) Fall Conclusion/Plan: 05/01 pt was recommended to SNF by PT/OT, consult with social sciences lecturer for disposition planning 04/27 will continue OT cognitive evaluation, and PT evaluation and treatment, pt was recommended to SNF, consult with social sciences lecturer for disposition planning. 04/25 PT/OT evaluation and treatment for pt, recommend to SNF, consult with social sciences lecturer for d/c planning Patient has a history of multiple falls, she live alone. social work consult for pt, PT/OT evaluation and treatment for patient, nurse for fall precaution. (7) Multiple sclerosis Conclusion/Plan: stable, Patient has a history of multiple sclerosis, chronic. pt has no acute respiratory distress. she had 97% O2 sat on room air. pt may followup with neurologist as out-pt (2) UTI (urinary tract infection) Qualifiers: Hematuria presence: without hematuria (3) Rhabdomyolysis Qualifiers: Rhabdomyolysis type: traumatic (6) Fall Qualifiers: Encounter type: subsequent encounter Qualified Code(s): W19.XXXD - Unspecified fall, subsequent encounter - Current Meds Current Meds: Current Medications Generic Name Dose Route Start Last Admin Trade Name Freq PRN Reason Stop Dose Admin Acetaminophen 650 mg 04/24/21 17:29 05/02/21 14:47 Acetaminophen 325 Mg Tablet PO 650 mg Q4HR PRN Administration Pain 1 to 4 Cholecalciferol 50 mcg 04/26/21 12:00 05/03/21 08:50 Cholecalciferol 25 Mcg Tablet PO 50 mcg DAILY DONNA Administration Citalopram Hydrobromide 40 mg 04/26/21 12:00 05/03/21 08:49 Citalopram Hydrobromide 20 Mg Tablet PO 40 mg DAILY DONNA Administration Diphenhydramine HCl 25 mg 04/28/21 21:25 05/03/21 02:20 Diphenhydramine 25 Mg Capsule PO 25 mg Q4HR PRN Administration Allergy Symptoms Enoxaparin Sodium 40 mg 04/25/21 09:00 05/03/21 08:49 Enoxaparin 40 Mg/0.4 Ml Syringe SUBQ 40 mg DAILY DONNA Administration Multi-Ingredient Ointment 1 applic 04/25/21 16:53 04/26/21 20:45 Zinc Oxide 20% Oint 30 Gm Tube TOP 1 applic PRN PRN Administration Skin Care Polyethylene Glycol 17 gm 04/25/21 10:00 05/03/21 08:50 Polyethylene Glycol 3350 17 Gm Packet PO Not Given DAILY DONNA Saccharomyces Boulardii 250 mg 04/26/21 17:00 05/03/21 08:50 Saccharomyces Boulardii 250 Mg Capsule PO 250 mg BIDWM DONNA Administration Sodium Chloride 10 ml 04/25/21 01:00 05/03/21 08:50 Sodium Chloride Flush 0.9% 10 Ml Syringe IVP 10 ml 0100,0900,1700 DONNA Administration - Lab Result Fish Bone Diagrams: 04/30/21 05:56 04/30/21 05:56 Subjective - Subjective Patient Reports: Feeling Better, Resting Comfortably Objective Vital Signs: Vital Signs - 24 hr 05/02/21 05/02/21 05/02/21 13:27 17:00 20:34 Temperature 36.6 C 36.6 C 36.4 C L Heart Rate [ 80 82 81 Brachial] Heart Rate [ Monitoring electrodes] Respiratory 18 18 20 Rate Blood Pressure 133/60 H 132/68 H 124/78 [Right Brachial artery] O2 Saturation 96 93 96 05/03/21 05/03/21 05/03/21 00:35 04:25 07:49 Temperature 36.7 C 36.6 C 36.5 C Heart Rate [ 75 80 Brachial] Heart Rate [ 64 Monitoring electrodes] Respiratory 16 18 17 Rate Blood Pressure 116/59 L 127/54 L 129/53 L [Right Brachial artery] O2 Saturation 97 97 93 Oxygen O2 Source Room air I&O (Last 24 Hrs): Intake and Output Totals x24h 05/01/21 05/02/21 05/03/21 23:59 23:59 23:59 Intake Total 900 915 120 Balance 900 915 120 General: Alert, Oriented x3, Cooperative, No acute distress HEENT: Atraumatic Neck: Supple Lymphatic: no adenopathy Neuro: Alert, Non Focal, Oriented Times 3 Cardiovascular: Regular rate, Normal S1, Normal S2 Respiratory: Chest non-tender, No respiratory distress, Breath sounds nml Abdomen: Normal bowel sounds, Soft Extremities: Normal pulses - Results Results: Laboratory Results WBC 5.3 x10^3/uL (4.8-10.8) 04/30/21 05:56 RBC 4.45 10^6/uL (4.20-5.40) 04/30/21 05:56 Hgb 12.5 g/dL (12.0-16.0) 04/30/21 05:56 Hct 38.8 % (37.0-47.0) 04/30/21 05:56 MCV 87.2 fL (81.0-99.0) 04/30/21 05:56 MCH 28.1 pg (27.0-31.0) 04/30/21 05:56 MCHC 32.2 g/dL (32.0-36.0) 04/30/21 05:56 RDW 13.6 % (12.0-15.0) 04/30/21 05:56 Plt Count 230 10^3/uL (130-450) 04/30/21 05:56 MPV 9.1 fL (7.9-10.8) 04/30/21 05:56 Neut # (Auto) 2.3 10^3/uL (1.5-6.6) 04/30/21 05:56 Lymph # (Auto) 2.1 10^3/uL (1.5-3.5) 04/30/21 05:56 [place] # (Auto) 0.7 10^3/uL (0.0-1.0) 04/30/21 05:56 Eos # (Auto) 0.2 10^3/uL (0.0-0.7) 04/30/21 05:56 Baso # (Auto) 0.0 10^3/uL (0.0-0.1) 04/30/21 05:56 Absolute Nucleated RBC 0.00 x10^3/uL 04/30/21 05:56 Nucleated RBC % 0.0 /100WBC 04/30/21 05:56 PT 14.2 secs (9.9-12.6) H 04/24/21 16:35 INR 1.3 (0.8-1.2) H 04/24/21 16:35 VBG pH 7.397 (7.31-7.41) 04/24/21 16:35 VBG pCO2 45.1 mmHg (41-51) 04/24/21 16:35 VBG pO2 29.3 mmHg (25-47) 04/24/21 16:35 VBG HCO3 27.1 mmol/L (23-28) 04/24/21 16:35 VBG Total CO2 28.5 mmol/L (24-29) 04/24/21 16:35 VBG O2 Saturation 56.8 % (60-80) L 04/24/21 16:35 VBG Base Excess 1.8 mmol/L (-2 - +2) 04/24/21 16:35 Sodium 138 mmol/L (135-145) 04/30/21 05:56 Potassium 3.8 mmol/L (3.5-5.0) 04/30/21 05:56 Chloride 101 mmol/L (101-111) 04/30/21 05:56 Carbon Dioxide 28 mmol/L (21-32) 04/30/21 05:56 Anion Gap 9.0 (6-13) 04/30/21 05:56 BUN 15 mg/dL (6-20) 04/30/21 05:56 Creatinine 0.7 mg/dL (0.4-1.0) 04/30/21 05:56 Estimated GFR (MDRD) 83 (>89) L 04/30/21 05:56 Glucose 94 mg/dL (70-100) 04/30/21 05:56 Lactic Acid 2.0 mmol/L (0.5-2.2) 04/24/21 16:35 Calcium 9.3 mg/dL (8.5-10.3) 04/30/21 05:56 Phosphorus 2.8 mg/dL (2.5-4.6) 04/27/21 05:55 Magnesium 2.0 mg/dL (1.7-2.8) 04/24/21 16:35 Total Bilirubin 0.6 mg/dL (0.2-1.0) 04/30/21 05:56 AST 30 IU/L (10-42) 04/30/21 05:56 ALT 35 IU/L (10-60) 04/30/21 05:56 Alkaline Phosphatase 41 IU/L (42-121) L 04/30/21 05:56 Total Creatine Kinase 67 IU/L (22-269) 04/30/21 05:56 Total Protein 6.5 g/dL (6.7-8.2) L 04/30/21 05:56 Albumin 3.6 g/dL (3.2-5.5) 04/30/21 05:56 Globulin 2.9 g/dL (2.1-4.2) 04/30/21 05:56 Albumin/Globulin Ratio 1.2 (1.0-2.2) 04/30/21 05:56 TSH 1.13 uIU/mL (0.34-5.60) 04/24/21 16:35 Urine Color DARK YELLOW 04/24/21 17:03 Urine Clarity HAZY (CLEAR) 04/24/21 17:03 Urine pH 6.0 PH (5.0-7.5) 04/24/21 17:03 Ur Specific [place] >=1.030 (1.002-1.030) H 04/24/21 17:03 Urine Protein 30 mg/dL (NEGATIVE) H 04/24/21 17:03 Urine Glucose (UA) NEGATIVE mg/dL (NEGATIVE) 04/24/21 17:03 Urine Ketones 15 mg/dL (NEGATIVE) H 04/24/21 17:03 Urine Occult Blood MODERATE (NEGATIVE) H 04/24/21 17:03 Urine Nitrite POSITIVE (NEGATIVE) H 04/24/21 17:03 Urine Bilirubin NEGATIVE (NEGATIVE) 04/24/21 17:03 Urine Urobilinogen 0.2 (NORMAL) E.U./dL (NORMAL) 04/24/21 17:03 Ur Leukocyte Esterase NEGATIVE (NEGATIVE) 04/24/21 17:03 Urine RBC 0-5 /HPF (0-5) 04/24/21 17:03 Urine WBC 4-5 /HPF (0-5) 04/24/21 17:03 Ur Squamous Epith Cells NONE SEEN (<= Few) 04/24/21 17:03 Urine Bacteria Many /HPF (None Seen) H 04/24/21 17:03 Ur Microscopic Review INDICATED 04/24/21 17:03 Urine Culture Comments INDICATED 04/24/21 17:03 Nasal Adenovirus (PCR) NOT DETECTED 04/24/21 16:40 Nasal B. parapertussis DNA (PCR) NOT DETECTED 04/24/21 16:40 Nasal Coronavir 229E PCR NOT DETECTED 04/24/21 16:40 Nasal Coronavir HKU1 PCR NOT DETECTED 04/24/21 16:40 Nasal Coronavir NL63 PCR NOT DETECTED 04/24/21 16:40 Nasal Coronavir OC43 PCR NOT DETECTED 04/24/21 16:40 Nasal Enterovir/Rhinovir PCR NOT DETECTED 04/24/21 16:40 Nasal Influenza B PCR NOT DETECTED 04/24/21 16:40 Nasal Influenza A PCR NOT DETECTED 04/24/21 16:40 Nasal Parainfluen 1 PCR NOT DETECTED 04/24/21 16:40 Nasal Parainfluen 2 PCR NOT DETECTED 04/24/21 16:40 Nasal Parainfluen 3 PCR NOT DETECTED 04/24/21 16:40 Nasal Parainfluen 4 PCR NOT DETECTED 04/24/21 16:40 Nasal RSV (PCR) NOT DETECTED 04/24/21 16:40 Nasal B.pertussis DNA PCR NOT DETECTED 04/24/21 16:40 Nasal C.pneumoniae (PCR) NOT DETECTED 04/24/21 16:40 Nagi Human Metapneumo PCR NOT DETECTED 04/24/21 16:40 Nasal M.pneumoniae (PCR) NOT DETECTED 04/24/21 16:40 Nasal SARS-CoV-2 (PCR) NOT DETECTED 04/24/21 16:40 Salicylates < 6.0 mg/dL 04/24/21 16:35 Urine Opiates Screen NEGATIVE (NEGATIVE) 04/24/21 17:03 Ur Oxycodone Screen NEGATIVE (NEGATIVE) 04/24/21 17:03 Urine Methadone Screen NEGATIVE (NEGATIVE) 04/24/21 17:03 Ur Propoxyphene Screen NEGATIVE (NEGATIVE) 04/24/21 17:03 Acetaminophen < 10 ug/mL (10-30) L 04/24/21 16:35 Ur Barbiturates Screen NEGATIVE (NEGATIVE) 04/24/21 17:03 Ur Tricyclics Screen NEGATIVE (NEGATIVE) 04/24/21 17:03 Ur Phencyclidine Scrn NEGATIVE (NEGATIVE) 04/24/21 17:03 Ur Amphetamine Screen NEGATIVE (NEGATIVE) 04/24/21 17:03 U Methamphetamines Scrn NEGATIVE (NEGATIVE) 04/24/21 17:03 U Benzodiazepines Scrn NEGATIVE (NEGATIVE) 04/24/21 17:03 Urine Cocaine Screen NEGATIVE (NEGATIVE) 04/24/21 17:03 U Cannabinoids Screen NEGATIVE (NEGATIVE) 04/24/21 17:03 Ethyl Alcohol < 5.0 mg/dL 04/24/21 16:35 Sepsis Event Note (H) - Evaluation Current Stage of Sepsis: Ruled out ABX Reporting Has patient been on IV antibiotics over the past 48 hours?: No Current Medications - Current Medications Current Medications: Active Medications Acetaminophen (Acetaminophen 325 Mg Tablet) 650 mg PO Q4HR PRN PRN Reason: Pain 1 to 4 Last Admin: 05/02/21 14:47 Dose: 650 mg Documented by: Cholecalciferol (Cholecalciferol 25 Mcg Tablet) 50 mcg PO DAILY [facility] Last Admin: 05/03/21 08:50 Dose: 50 mcg Documented by: Citalopram Hydrobromide (Citalopram Hydrobromide 20 Mg Tablet) 40 mg PO DAILY [facility] Last Admin: 05/03/21 08:49 Dose: 40 mg Documented by: Diphenhydramine HCl (Diphenhydramine 25 Mg Capsule) 25 mg PO Q4HR PRN PRN Reason: Allergy Symptoms Last Admin: 05/03/21 02:20 Dose: 25 mg Documented by: Enoxaparin Sodium (Enoxaparin 40 Mg/0.4 Ml Syringe) 40 mg SUBQ DAILY [facility] Last Admin: 05/03/21 08:49 Dose: 40 mg Documented by: Multi-Ingredient Ointment (Zinc Oxide 20% Oint 30 Gm Tube) 1 applic TOP PRN PRN PRN Reason: Skin Care Last Admin: 04/26/21 20:45 Dose: 1 applic Documented by: Ondansetron HCl (Ondansetron 4 Mg/2 Ml Vial) 4 mg IVP Q6HR PRN PRN Reason: Nausea / Vomiting Polyethylene Glycol (Polyethylene Glycol 3350 17 Gm Packet) 17 gm PO DAILY [facility] Last Admin: 05/03/21 08:50 Dose: Not Given Documented by: Saccharomyces Boulardii (Saccharomyces Boulardii 250 Mg Capsule) 250 mg PO BIDWM [facility] Last Admin: 05/03/21 08:50 Dose: 250 mg Documented by: Sodium Chloride (Sodium Chloride Flush 0.9% 10 Ml Syringe) 10 ml IVP PRN PRN PRN Reason: NEEDED PER PROVIDER ORDERS Sodium Chloride (Sodium Chloride Flush 0.9% 10 Ml Syringe) 10 ml IVP 01 00,0900,1700 [facility] Last Admin: 05/03/21 08:50 Dose: 10 ml Documented by: Cholecalciferol (Vitamin D3) [Vitamin D3] 50 mcg PO DAILY 04/25/21 Citalopram Hydrobromide [Citalopram HBr] 40 mg PO DAILY 04/25/21
[2021-05-04] MEDS: SODIUM CHLORIDE FLUSH 0.9% 10 ML SYRINGE IVP SCH ×2 (00:07→08:11)
[2021-05-04] MEDS: diphenhydrAMINE 25 MG CAPSULE PO PRN (07:03)
[2021-05-04] MEDS: polyethylene glycoL 3350 17 GM PACKET PO SCH (07:42)
[2021-05-04] MEDS: SACCHAROMYCES BOULARDII 250 MG CAPSULE PO SCH (08:10)
[2021-05-04] MEDS: CITALOPRAM HYDROBROMIDE 20 MG TABLET PO SCH (08:10)
[2021-05-04] MEDS: CHOLECALCIFEROL 25 MCG TABLET PO SCH (08:10)
[2021-05-04] MEDS: ENOXAPARIN 40 MG/0.4 ML SYRINGE SUBQ SCH (08:10)
--- NOTE | 2021-05-04 11:15 | PROVIDER PROGRESS NOTE ---
Assessment/Plan - Problem List (1) Altered mental status Qualifiers: Altered mental status type: unspecified Qualified Code(s): R41.82 - Altered mental status, unspecified Assessment/Plan: 05/04 stable, Patient is hemodynamically stable, is pending for replacement 05/03 resolved, pt is pending for replacement to SNF. Patient is hemodynamically stable 05/02 stable and resolved. pt is appropriately answering questions, consult with social work therapist for Disposition planning. 05/01 resolved. pt return to her baseline. pt is appropriately answering questions on today. 04/27 mental status is returned to her baseline, she is alert and oriented. 04/26 improved. she is alert and oriented two, herself and location. she report she had a good sleep, no pain. we will continue treatment of dehydration and infection. continue neuro check per Q8H 04/25 improved. continue treated underline dehydration and infection pt is confused at ER. ER provider Spoke with Ms Lam whose contact was on chart, and reported her mental status has some baseline confusion, but today it is not her normal. CT of head reveal no acute process. pt has UTI infection, and dehydration significantly as well, it is likely the cause for her acute confusion, delirium. neuro check Q4H, treat underline of UTI with antibiotics and IVF, Continue laboratory and vital signs monitor (2) UTI (urinary tract infection) Conclusion/Plan: 05/01 stable, pt finished treatment 04/27 UA culture show positive for Ecoli, and sensitive to All antibiotics Urinalysis Show many bacteria in urine and positive nitrate, ketones with protein, elevated gravity in urine. We will treat her with antibiotics Rocephin, Intravenous IV fluids, Follow-up with urine culture and blood culture (3) Rhabdomyolysis Conclusion/Plan: 05/01 resolved, CK was down to normal arrange 04/27 improved. CK is down to 400, creatinine is at normal arrange, continue gentle IVF, lab monitor 04/26 improved. CK is down to 800 arrange, creatinine is at normal arrange, continue IVF (reduced to 100cc/h) 04/25 improved. CK is down to 1700 from over 3000, continue IVF and lab monitor Patient had unwitnessed fall at ground, unknown how long time she has been the ground, but it seem she had no injury. CK is over 3000, and increased BUN 48, but with normal arrange creatinine. ER already started with IVF, we will continue IVF, continue lab monitor and check CK daily as well. (4) Dehydration Conclusion/Plan: 05/01 resolved. 04/26 improved, BUN is down to normal arrange, IVF at 100cc/h now. 04/25 improved. BUN is down to 31 from 48, continue IVF, and lab and vital monitor pt is confused and live alone, elevated BUN and urine gravity, indicated pt had significant dehydration. IVF, lab monitor and vital monitor. consult with social work therapist for disposition planning. It is likely pt need nurse facility to help her, pt can not take care of her self. (5) Hypokalemia Conclusion/Plan: 04/27 resolved, 04/25 K is 3.3, continue replaced, lab monitor potassium is 2.8, replaced with potassium, lab monitor, add tele monitor as well. (6) Fall Conclusion/Plan: 05/01 pt was recommended to SNF by PT/OT, consult with social work therapist for disposition planning 04/27 will continue OT cognitive evaluation, and PT evaluation and treatment, pt was recommended to SNF, consult with social work therapist for disposition planning. 04/25 PT/OT evaluation and treatment for pt, recommend to SNF, consult with [facility] for d/c planning Patient has a history of multiple falls, she live alone. social work consult for pt, PT/OT evaluation and treatment for patient, nurse for fall precaution. (7) Multiple sclerosis Conclusion/Plan: stable, Patient has a history of multiple sclerosis, chronic. pt has no acute respiratory distress. she had 97% O2 sat on room air. pt may followup with neurologist as out-pt (2) UTI (urinary tract infection) Qualifiers: Hematuria presence: without hematuria (3) Rhabdomyolysis Qualifiers: Rhabdomyolysis type: traumatic (6) Fall Qualifiers: Encounter type: subsequent encounter Qualified Code(s): W19.XXXD - Unspecified fall, subsequent encounter - Current Meds Current Meds: Current Medications Generic Name Dose Route Start Last Admin Trade Name Freq PRN Reason Stop Dose Admin Acetaminophen 650 mg 04/24/21 17:29 05/02/21 14:47 Acetaminophen 325 Mg Tablet PO 650 mg Q4HR PRN Administration Pain 1 to 4 Cholecalciferol 50 mcg 04/26/21 12:00 05/04/21 08:10 Cholecalciferol 25 Mcg Tablet PO 50 mcg DAILY DONNA Administration Citalopram Hydrobromide 40 mg 04/26/21 12:00 05/04/21 08:10 Citalopram Hydrobromide 20 Mg Tablet PO 40 mg DAILY DONNA Administration Diphenhydramine HCl 25 mg 04/28/21 21:25 05/04/21 07:03 Diphenhydramine 25 Mg Capsule PO 25 mg Q4HR PRN Administration Allergy Symptoms Enoxaparin Sodium 40 mg 04/25/21 09:00 05/04/21 08:10 Enoxaparin 40 Mg/0.4 Ml Syringe SUBQ 40 mg DAILY DONNA Administration Multi-Ingredient Ointment 1 applic 04/25/21 16:53 04/26/21 20:45 Zinc Oxide 20% Oint 30 Gm Tube TOP 1 applic PRN PRN Administration Skin Care Polyethylene Glycol 17 gm 04/25/21 10:00 05/04/21 07:42 Polyethylene Glycol 3350 17 Gm Packet PO Not Given DAILY DONNA Saccharomyces Boulardii 250 mg 04/26/21 17:00 05/04/21 08:10 Saccharomyces Boulardii 250 Mg Capsule PO 250 mg BIDWM DONNA Administration Sodium Chloride 10 ml 04/25/21 01:00 05/04/21 08:11 Sodium Chloride Flush 0.9% 10 Ml Syringe IVP 10 ml 0100,0900,1700 DONNA Administration - Lab Result Fish Bone Diagrams: 04/30/21 05:56 04/30/21 05:56 Subjective - Subjective Patient Reports: Resting Comfortably Objective Vital Signs: Vital Signs - 24 hr 05/03/21 05/03/21 05/03/21 11:30 17:00 20:07 Temperature 36.4 C L 36.4 C L 36.6 C Heart Rate [ 76 92 78 Brachial] Respiratory 18 18 18 Rate Blood Pressure 118/56 L 117/65 109/60 [Right Brachial artery] O2 Saturation 97 98 96 05/04/21 05/04/21 05/04/21 00:19 04:54 07:18 Temperature 36.5 C 36.5 C 36.3 C L Heart Rate [ 72 71 69 Brachial] Respiratory 18 16 18 Rate Blood Pressure 121/66 134/58 H 139/63 H [Right Brachial artery] O2 Saturation 96 100 94 Oxygen O2 Source Room air I&O (Last 24 Hrs): Intake and Output Totals x24h 05/02/21 05/03/21 05/04/21 23:59 23:59 23:59 Intake Total 915 1460 530 Balance 915 1460 530 General: Alert, Cooperative, No acute distress HEENT: Atraumatic Neck: Supple Lymphatic: no adenopathy Neuro: Alert, Non Focal, Oriented Times 3 Cardiovascular: Regular rate, Normal S1, Normal S2 Respiratory: Chest non-tender, No respiratory distress Abdomen: Normal bowel sounds, Soft Extremities: Normal pulses - Results Results: Laboratory Results WBC 5.3 x10^3/uL (4.8-10.8) 04/30/21 05:56 RBC 4.45 10^6/uL (4.20-5.40) 04/30/21 05:56 Hgb 12.5 g/dL (12.0-16.0) 04/30/21 05:56 Hct 38.8 % (37.0-47.0) 04/30/21 05:56 MCV 87.2 fL (81.0-99.0) 04/30/21 05:56 MCH 28.1 pg (27.0-31.0) 04/30/21 05:56 MCHC 32.2 g/dL (32.0-36.0) 04/30/21 05:56 RDW 13.6 % (12.0-15.0) 04/30/21 05:56 Plt Count 230 10^3/uL (130-450) 04/30/21 05:56 MPV 9.1 fL (7.9-10.8) 04/30/21 05:56 Neut # (Auto) 2.3 10^3/uL (1.5-6.6) 04/30/21 05:56 Lymph # (Auto) 2.1 10^3/uL (1.5-3.5) 04/30/21 05:56 Crook # (Auto) 0.7 10^3/uL (0.0-1.0) 04/30/21 05:56 Eos # (Auto) 0.2 10^3/uL (0.0-0.7) 04/30/21 05:56 Baso # (Auto) 0.0 10^3/uL (0.0-0.1) 04/30/21 05:56 Absolute Nucleated RBC 0.00 x10^3/uL 04/30/21 05:56 Nucleated RBC % 0.0 /100WBC 04/30/21 05:56 PT 14.2 secs (9.9-12.6) H 04/24/21 16:35 INR 1.3 (0.8-1.2) H 04/24/21 16:35 VBG pH 7.397 (7.31-7.41) 04/24/21 16:35 VBG pCO2 45.1 mmHg (41-51) 04/24/21 16:35 VBG pO2 29.3 mmHg (25-47) 04/24/21 16:35 VBG HCO3 27.1 mmol/L (23-28) 04/24/21 16:35 VBG Total CO2 28.5 mmol/L (24-29) 04/24/21 16:35 VBG O2 Saturation 56.8 % (60-80) L 04/24/21 16:35 VBG Base Excess 1.8 mmol/L (-2 - +2) 04/24/21 16:35 Sodium 138 mmol/L (135-145) 04/30/21 05:56 Potassium 3.8 mmol/L (3.5-5.0) 04/30/21 05:56 Chloride 101 mmol/L (101-111) 04/30/21 05:56 Carbon Dioxide 28 mmol/L (21-32) 04/30/21 05:56 Anion Gap 9.0 (6-13) 04/30/21 05:56 BUN 15 mg/dL (6-20) 04/30/21 05:56 Creatinine 0.7 mg/dL (0.4-1.0) 04/30/21 05:56 Estimated GFR (MDRD) 83 (>89) L 04/30/21 05:56 Glucose 94 mg/dL (70-100) 04/30/21 05:56 Lactic Acid 2.0 mmol/L (0.5-2.2) 04/24/21 16:35 Calcium 9.3 mg/dL (8.5-10.3) 04/30/21 05:56 Phosphorus 2.8 mg/dL (2.5-4.6) 04/27/21 05:55 Magnesium 2.0 mg/dL (1.7-2.8) 04/24/21 16:35 Total Bilirubin 0.6 mg/dL (0.2-1.0) 04/30/21 05:56 AST 30 IU/L (10-42) 04/30/21 05:56 ALT 35 IU/L (10-60) 04/30/21 05:56 Alkaline Phosphatase 41 IU/L (42-121) L 04/30/21 05:56 Total Creatine Kinase 67 IU/L (22-269) 04/30/21 05:56 Total Protein 6.5 g/dL (6.7-8.2) L 04/30/21 05:56 Albumin 3.6 g/dL (3.2-5.5) 04/30/21 05:56 Globulin 2.9 g/dL (2.1-4.2) 04/30/21 05:56 Albumin/Globulin Ratio 1.2 (1.0-2.2) 04/30/21 05:56 TSH 1.13 uIU/mL (0.34-5.60) 04/24/21 16:35 Urine Color DARK YELLOW 04/24/21 17:03 Urine Clarity HAZY (CLEAR) 04/24/21 17:03 Urine pH 6.0 PH (5.0-7.5) 04/24/21 17:03 Ur Specific Reading >=1.030 (1.002-1.030) H 04/24/21 17:03 Urine Protein 30 mg/dL (NEGATIVE) H 04/24/21 17:03 Urine Glucose (UA) NEGATIVE mg/dL (NEGATIVE) 04/24/21 17:03 Urine Ketones 15 mg/dL (NEGATIVE) H 04/24/21 17:03 Urine Occult Blood MODERATE (NEGATIVE) H 04/24/21 17:03 Urine Nitrite POSITIVE (NEGATIVE) H 04/24/21 17:03 Urine Bilirubin NEGATIVE (NEGATIVE) 04/24/21 17:03 Urine Urobilinogen 0.2 (NORMAL) E.U./dL (NORMAL) 04/24/21 17:03 Ur Leukocyte Esterase NEGATIVE (NEGATIVE) 04/24/21 17:03 Urine RBC 0-5 /HPF (0-5) 04/24/21 17:03 Urine WBC 4-5 /HPF (0-5) 04/24/21 17:03 Ur Squamous Epith Cells NONE SEEN (<= Few) 04/24/21 17:03 Urine Bacteria Many /HPF (None Seen) H 04/24/21 17:03 Ur Microscopic Review INDICATED 04/24/21 17:03 Urine Culture Comments INDICATED 04/24/21 17:03 Nasal Adenovirus (PCR) NOT DETECTED 04/24/21 16:40 Nasal B. parapertussis DNA (PCR) NOT DETECTED 04/24/21 16:40 Nasal Coronavir 229E PCR NOT DETECTED 04/24/21 16:40 Nasal Coronavir HKU1 PCR NOT DETECTED 04/24/21 16:40 Nasal Coronavir NL63 PCR NOT DETECTED 04/24/21 16:40 Nasal Coronavir OC43 PCR NOT DETECTED 04/24/21 16:40 Nasal Enterovir/Rhinovir PCR NOT DETECTED 04/24/21 16:40 Nasal Influenza B PCR NOT DETECTED 04/24/21 16:40 Nasal Influenza A PCR NOT DETECTED 04/24/21 16:40 Nasal Parainfluen 1 PCR NOT DETECTED 04/24/21 16:40 Nasal Parainfluen 2 PCR NOT DETECTED 04/24/21 16:40 Nasal Parainfluen 3 PCR NOT DETECTED 04/24/21 16:40 Nasal Parainfluen 4 PCR NOT DETECTED 04/24/21 16:40 Nasal RSV (PCR) NOT DETECTED 04/24/21 16:40 Nasal B.pertussis DNA PCR NOT DETECTED 04/24/21 16:40 Nasal C.pneumoniae (PCR) NOT DETECTED 04/24/21 16:40 Nagi Human Metapneumo PCR NOT DETECTED 04/24/21 16:40 Nasal M.pneumoniae (PCR) NOT DETECTED 04/24/21 16:40 Nasal SARS-CoV-2 (PCR) NOT DETECTED 04/24/21 16:40 Salicylates < 6.0 mg/dL 04/24/21 16:35 Urine Opiates Screen NEGATIVE (NEGATIVE) 04/24/21 17:03 Ur Oxycodone Screen NEGATIVE (NEGATIVE) 04/24/21 17:03 Urine Methadone Screen NEGATIVE (NEGATIVE) 04/24/21 17:03 Ur Propoxyphene Screen NEGATIVE (NEGATIVE) 04/24/21 17:03 Acetaminophen < 10 ug/mL (10-30) L 04/24/21 16:35 Ur Barbiturates Screen NEGATIVE (NEGATIVE) 04/24/21 17:03 Ur Tricyclics Screen NEGATIVE (NEGATIVE) 04/24/21 17:03 Ur Phencyclidine Scrn NEGATIVE (NEGATIVE) 04/24/21 17:03 Ur Amphetamine Screen NEGATIVE (NEGATIVE) 04/24/21 17:03 U Methamphetamines Scrn NEGATIVE (NEGATIVE) 04/24/21 17:03 U Benzodiazepines Scrn NEGATIVE (NEGATIVE) 04/24/21 17:03 Urine Cocaine Screen NEGATIVE (NEGATIVE) 04/24/21 17:03 U Cannabinoids Screen NEGATIVE (NEGATIVE) 04/24/21 17:03 Ethyl Alcohol < 5.0 mg/dL 04/24/21 16:35 Sepsis Event Note (H) - Evaluation Current Stage of Sepsis: Ruled out ABX Reporting Has patient been on IV antibiotics over the past 48 hours?: No Current Medications - Current Medications Current Medications: Active Medications Acetaminophen (Acetaminophen 325 Mg Tablet) 650 mg PO Q4HR PRN PRN Reason: Pain 1 to 4 Last Admin: 05/02/21 14:47 Dose: 650 mg Documented by: Cholecalciferol (Cholecalciferol 25 Mcg Tablet) 50 mcg PO DAILY [facility] Last Admin: 05/04/21 08:10 Dose: 50 mcg Documented by: Citalopram Hydrobromide (Citalopram Hydrobromide 20 Mg Tablet) 40 mg PO DAILY [facility] Last Admin: 05/04/21 08:10 Dose: 40 mg Documented by: Diphenhydramine HCl (Diphenhydramine 25 Mg Capsule) 25 mg PO Q4HR PRN PRN Reason: Allergy Symptoms Last Admin: 05/04/21 07:03 Dose: 25 mg Documented by: Enoxaparin Sodium (Enoxaparin 40 Mg/0.4 Ml Syringe) 40 mg SUBQ DAILY [facility] Last Admin: 05/04/21 08:10 Dose: 40 mg Documented by: Multi-Ingredient Ointment (Zinc Oxide 20% Oint 30 Gm Tube) 1 applic TOP PRN PRN PRN Reason: Skin Care Last Admin: 04/26/21 20:45 Dose: 1 applic Documented by: Ondansetron HCl (Ondansetron 4 Mg/2 Ml Vial) 4 mg IVP Q6HR PRN PRN Reason: Nausea / Vomiting Polyethylene Glycol (Polyethylene Glycol 3350 17 Gm Packet) 17 gm PO DAILY [facility] Last Admin: 05/04/21 07:42 Dose: Not Given Documented by: Saccharomyces Boulardii (Saccharomyces Boulardii 250 Mg Capsule) 250 mg PO BIDWM [facility] Last Admin: 05/04/21 08:10 Dose: 250 mg Documented by: Sodium Chloride (Sodium Chloride Flush 0.9% 10 Ml Syringe) 10 ml IVP PRN PRN PRN Reason: NEEDED PER PROVIDER ORDERS Sodium Chloride (Sodium Chloride Flush 0.9% 10 Ml Syringe) 10 ml IVP 0100,0900,1700 [facility] Last Admin: 05/04/21 08:11 Dose: 10 ml Documented by: Cholecalciferol (Vitamin D3) [Vitamin D3] 50 mcg PO DAILY 04/25/21 Citalopram Hydrobromide [Citalopram HBr] 40 mg PO DAILY 04/25/21
--- NOTE | 2021-05-04 12:08 | Discharge Plan ---
"Discharge Plan for SNF / [facility] - Discharge Plan And Transition Orders Problem Reviewed?: Yes Disposition: 03 SNF DC/Xfer Condition: Stable Allergies and Adverse Reactions: Allergies Allergy/AdvReac Type Severity Reaction Status Date / Time Penicillins Allergy Unknown Verified 04/24/21 16:30 Sulfa (Sulfonamide Allergy Unknown Verified 04/24/21 16:30 Antibiotics) Health Concerns: fall, dehydration and UTI, hx of MS Plan of Treatment: continue PT/OT and training for prevention of fall in SNF. pt has hx of MS. pt may followup with neurologist for management of her MS and prevention of her frequent falls. pt may continue hydration and Personal hygiene and prevention of UTI infection. Care Goals: stabilization and prevention of her falls Assessment: Discussed the care plan with the patient, answered her question, she understood - SNF / LONG TERM Transition Orders [facility] Under the care of (Name): [facility] Discharge Diagnosis: AMS, MS, UTI, Rhabdomyolysis, dehydration, fall Medicare Certification Statement: I certify that [facility] is medically necessary on a continuing basis for any of the conditions for which she/he is receiving care during hospitalization. Notify PCP of admission and forward orders to primary provider for signature. Weight on admission and: Weekly Call PCP immediately if weight increases by: 2 kg Other Notification Orders: Call PCP immediately if patient develops dyspnea, chest pain/tightness or edema. House Bowel Program: Yes Additional Bowel Program Orders: If no BM after 2 days, nurse may give M.O.M. 30ml PO PRN and/or ducolax Supp 1 DC and/or DELIA 250mg P.O., and/or senna 1-2 tabs PO. On day 3 nurse may give repeat above order until residents constipation is resolved. Annual Influenza Vaccine (between Jan 31 and August 30): Yes Two-step PPD per [facility] 248-235 or approved exception documents: Yes Treatments & Other Orders: continue PT/OT and training for prevention of fall in SNF. pt has hx of MS. pt may followup with neurologist for management of her MS and prevention of her frequent falls. pt may continue hydration and Personal hygiene and prevention of UTI infection. Medication Orders: PLEASE REFER TO THE DISCHARGE MEDICATION LIST. Insulin Orders?: No - Diet Type: Geriatric Texture: Regular Liquids: Thin May have monthly special meal: Yes - Therapies | Activity Therapy: Evaluation | Treat if indicated: PT, OT Rehabilitation Potential: Maximize functional status Activity: Activity as Tolerated"
--- NOTE | 2021-05-04 12:17 | DISCHARGE SUMMARY ---
Discharge Summary Admit Date: 04/24/21 Discharge Date: 05/04/21 Discharging Provider: Pavel Webb Primary Care Provider: Jalyn Reyes Condition at Discharge: Stable Discharge Disposition: SNF DC/Xfer Discharge Facility Name: [facility]us[facility] - DIAGNOSES Discharge Diagnoses with Status of Each Condition: (1) Altered mental status resolved, pt return to her baseline. pt's AMS was likely caused by her UTI infection, and dehydration. (2) UTI (urinary tract infection) resolved.pt finished the treatment course in hospital. UA culture show positive for E. coli. (3) Rhabdomyolysis resolved. CK was down to normal arrange. (4) Dehydration resolved. advise pt keep hydration at home (5) Hypokalemia resolved, (6) Fall Patient had PT/OT evaluation and treatment, patient is discharged to SNF (7) Multiple sclerosis stable, Patient has a history of multiple sclerosis. pt has no acute respiratory distress. pt may followup with neurologist as out-pt - HPI History of Present Illness: This is a 71-year-old woman with A medical history Significant of multiple sclerosis and multiple doreen in the past who present ER for evaluation of her fall and altered mental status. pt was seen for a fall from ladder at here 5 days ago. Pt is alert and confused. She attempted to open her eyes and follow the command, but she did not answer any questions. pt was confused at ER per ER's report as well. Pt also was found on the ground by APS today. Her last seen at normal was 2 days ago. Pt is living alone. It was unclear how and why she was on the ground. CT of head and CXR reveals unremarkable for acute finding. Routine laboratory tests show patient had Potassium 2.8, BUN 48, AST 119, ALT 68, Alcohol less 5, CK 3057. Urinalysis show many bacteria, positive nitrate and indication of dehydration. Given above medical conditions, medical team was consulted for admission. At this moment, patient is confused, we will have full code for patient and will adjust as patient can request differently - ALLERGIES Allergies/Adverse Reactions: Allergies Allergy/AdvReac Type Severity Reaction Status Date / Time Penicillins Allergy Unknown Verified 04/24/21 16:30 Sulfa (Sulfonamide Allergy Unknown Verified 04/24/21 16:30 Antibiotics) - MEDICATIONS Home Medications: Ambulatory Orders Medication Instructions Recorded Confirmed Cholecalciferol (Vitamin D3) 50 mcg PO DAILY 04/25/21 04/25/21 [Vitamin D3] Citalopram Hydrobromide 40 mg PO DAILY 04/25/21 04/25/21 [Citalopram HBr] - PHYSICAL EXAM AT DISCHARGE General Appearance: positive: No acute distress, Alert. negative: Lethargic Eyes Bilateral: positive: Normal inspection, No lid inflammation ENT: positive: ENT inspection nml, No signs of dehydration. negative: Purulent nasal drainage Neck: positive: Nml inspection, Trachea midline. negative: Tracheal deviation Respiratory: positive: Chest non-tender, No respiratory distress. negative: Wheezes, Rales Cardiovascular: positive: Regular rate & rhythm. negative: Tachycardia, Bradycardia, Systolic murmur Peripheral Pulses: positive: 2+ Abdomen: positive: Non-tender, Nml bowel sounds, No distention. negative: Tenderness Back: positive: Nml inspection Skin: positive: Color nml, Warm, Dry. negative: Cyanosis Extremities: positive: Non-tender, Nml appearance. negative: Calf tenderness Neurologic/Psychiatric: positive: Oriented x3, Motor nml, Sensation nml. negative: Weakness, Sensory loss, Facial droop, Slurred/abnml speech, Depressed mood/affect - LABS Result Diagrams: 04/30/21 05:56 04/30/21 05:56 - SEPSIS Current Stage of Sepsis: Ruled out - FOLLOW UP Follow Up: continue PT/OT and training for prevention of fall in SNF. pt has hx of MS. pt may followup with neurologist for management of her MS and prevention of her frequent falls. pt may continue hydration and Personal hygiene and prevention of UTI infection. - TIME SPENT Time Spent in Discharge (Minutes): 30
[2021-05-04 12:41] VITALS: BP 140/66
[2021-05-04 13:54] LABS: B. PARAPERTUSSIS- RESP PCR PAN NOT DETECTED; B. PERTUSSIS- RESP PCR PANEL NOT DETECTED; C. PNEUMONIAE- RESP PCR PANEL NOT DETECTED; CORONAVIRUS 229E-RESP PCR NOT DETECTED; CORONAVIRUS HKU1-RESP PCR NOT DETECTED; CORONAVIRUS NL63-RESP PCR NOT DETECTED; CORONAVIRUS OC43-RESP PCR NOT DETECTED; HUMAN METAPNEUMOVIRUS NOT DETECTED; INFLUENZA A- RESP PCR PANEL NOT DETECTED; INFLUENZA B - RESP PCR PANEL NOT DETECTED; M. PNEUMONIAE- RESP PCR PANEL NOT DETECTED; PARAINFLUENZA VIRUS 1 NOT DETECTED; PARAINFLUENZA VIRUS 2 NOT DETECTED; PARAINFLUENZA VIRUS 3 NOT DETECTED; PARAINFLUENZA VIRUS 4 NOT DETECTED; RHINOVIRUS/ENTEROVIRUS NOT DETECTED; RSV- RESP PCR PANEL NOT DETECTED; SARS-CoV-2 -RESP PCR PANEL NOT DETECTED
== END 2021-05-04 14:13 | DRG 690 ==
LOC: EDUNIT# → ED 16:13 → MS2 17:29
PROVIDERS: ADMIT Nurse Practitioner Gerontology; ATTEND Nurse Practitioner Gerontology
DX: N39.0 Urinary tract infection, site not specified (principal); M62.82 Rhabdomyolysis; R41.0 Disorientation, unspecified; G35 Multiple sclerosis; Z20.822 Contact with and (suspected) exposure to COVID-19; R41.82 Altered mental status, unspecified; B96.20 Unspecified Escherichia coli [E. coli] as the cause of diseases classified elsewhere; E86.0 Dehydration; E87.6 Hypokalemia; Z91.81 History of falling; Z79.899 Other long term (current) drug therapy
CPT/HCPCS: 36415; 51701; 70450; 71045; 80053; 80306; 80307; 81001; 82550; 82803; 83605; 83735; 84100; 84443; 85025; 85610; 87040; 87077; 87086; 87181; 87631; 93005; 96360; 97110; 97116; 97162; 97165; 97530; 97535; 99285; A9270; G0480; J1650; J8499; 0202U; 80320; 80329; 81003

== ENCOUNTER 2022-08-30 13:00 | Outpatient (CLI) | payer MEDICARE ==
--- NOTE | 2022-08-30 14:01 | XRAY Report ---
PROCEDURE: Chest 2 View X-Ray INDICATIONS: PRODUCTIVE COUGH TECHNIQUE: 2 views of the chest were acquired. COMPARISON: None. FINDINGS: Surgical changes and devices: None. Lungs and pleura: No pleural effusions or pneumothorax. Lungs are clear. Mediastinum: Mediastinal contours appear normal. Heart size is normal. Large hiatal hernia. Bones and chest wall: No suspicious bony lesions. Overlying soft tissues appear unremarkable. IMPRESSION: No acute cardiopulmonary process. Large hiatal hernia. Reviewed by: Timothy Alas on 08/30/2022 2:00 PM PDT Approved by: Timothy Alas on 08/30/2022 2:00 PM PDT Station ID: [id number]
== END 2022-08-30 13:01 | disposition home or self-care (01) ==
LOC: DI.S 13:00
PROVIDERS: ATTEND Physician Assistant Medical
DX: R05.9 Cough, unspecified (principal); K44.9 Diaphragmatic hernia without obstruction or gangrene